=== PATIENT | female | born 1955 | race Caucasian/White ===

== ENCOUNTER 2019-08-09 15:57 | Inpatient (IN) | payer MEDICARE, BC ==
[2019-08-09 16:51] LABS: Basophils % (A) 0 %; Eosinophils # (A) 0.1 k/uL (0-0.7); Eosinophils % (A) 1 %; HCT 27.4 % (34.0-46.0); HGB 9.5 gm/dL (11.4-16.0); Lymphocytes # (A) 0.2 k/uL (1.0-4.8); Lymphocytes % (A) 3 %; MCH 28.8 pg (25.0-35.0); MCHC 34.6 g/dL (31.0-37.0); MCV 83.2 fL (80.0-100.0); Mean Platelet Volume 9.4; Monocytes # (A) 0.7 k/uL (0-1.0); Monocytes % (A) 8 %; Neutrophils # (A) 7.5 k/uL (1.3-7.7); Neutrophils % (A) 88 %; Platelet Count 198 k/uL (150-450); RBC 3.29 m/uL (3.80-5.40); RDW 12.7 % (11.5-15.5); WBC 8.6 k/uL (3.8-10.6)
[2019-08-09 16:54] LABS: Albumin 3.5 g/dL (3.5-5.0); Calcium 9.4 mg/dL (8.4-10.2); Potassium 4.7 mmol/L (3.5-5.1); Total Bilirubin 0.3 mg/dL (0.2-1.3); Total Protein 6.1 g/dL (6.3-8.2)
--- NOTE | 2019-08-09 16:54 | ED ---
Weakness HPI - General Chief complaint: Weakness Stated complaint: Multiple falls Time Seen by Provider: 08/09/19 16:00 Source: patient Mode of arrival: wheelchair Limitations: no limitations - History of Present Illness Initial comments: The patient is a 64-year-old female past medical history of renal transplant in 2018 who presents to the emergency department with reported generalized weakness. The patient does come over from the wound care center. She was seen there for an abdominal wall wound which has been present since they removed her stitches from her nephrectomy. She states that it was cleaned up after 7 months. Then last January it began oozing purulent drainage again. She has been going to the wound care frequently without improvement. States that as of recently she began having pain in the area which is new for her. Admits to chills with intermittent fevers. Also admits to the sensation of feeling as if she is off balance. She has had multiple falls. Today she sustained a fall where she fell onto her knees. Denies any current pain in her extremities. She was able to get up and ambulate. Denies any head trauma or loss of consciousness. She denies any chest pain. Denies cough or hemoptysis. Follows with Dr. Mcdonald. She is on Everolimus and Tacro. Denies any missed doses. There are no other alleviating, precipitating or modifying factors - Related Data Home Medications Medication Instructions Recorded Confirmed Febuxostat [Uloric] 40 mg PO DAILY 04/01/14 08/09/19 HYDROcodone/APAP 10-325MG [[place] 1 tab PO Q6H PRN 04/01/14 08/09/19 10-325] Montelukast [Singulair] 10 mg PO HS 04/01/14 08/09/19 Rituxan(Unknown Dose) 1 dose IV Q180D 04/01/14 08/09/19 buPROPion [Wellbutrin] 100 mg PO DAILY 04/01/14 08/09/19 predniSONE 5 mg PO DAILY 04/01/14 08/09/19 traZODone HCL [Desyrel] 100 mg PO HS 04/01/14 08/09/19 Aspirin 81 mg PO DAILY 06/14/18 08/09/19 Cholecalciferol [Vitamin D3 (25 1,000 unit PO DAILY 06/14/18 08/09/19 Mcg = 1000 Iu)] Insulin Glargine [Lantus] 20 units SQ AC-BRKFST 06/14/18 08/09/19 Lisinopril [Zestril] 10 mg PO DAILY 09/26/18 08/09/19 Albuterol Sulfate [Ventolin HFA] 1 puff INHALATION RT-Q4H PRN 08/09/19 08/09/19 Atorvastatin Calcium [Lipitor] 10 mg PO DAILY 08/09/19 08/09/19 Cinacalcet HCl [Sensipar] 30 mg PO FR 08/09/19 08/09/19 INSULIN ASPART (NovoLOG) [NovoLOG See Protocol SQ AC-TID PRN 08/09/19 08/09/19 (formulary)] NIFEdipine [Procardia XL] 90 mg PO DIRECTED 08/09/19 08/09/19 sitaGLIPtin PHOSPHATE [Januvia] 100 mg PO DAILY 08/09/19 08/09/19 Everolimus [Zortress] 3 mg PO HS 08/10/19 08/10/19 Everolimus [Zortress] 4 mg PO QAM 08/10/19 08/10/19 Previous Rx's Medication Instructions Recorded Omeprazole [PriLOSEC] 20 mg PO AC-BID #28 cap 04/03/14 Amoxic-Pot Clav 875-125Mg 1 tab PO Q12HR 3 Days #14 tab 08/13/19 [Augmentin 875-125] Tacrolimus [Prograf] 7 mg PO BID #60 cap 08/13/19 Allergies Allergy/AdvReac Type Severity Reaction Status Date / Time povidone-iodine Allergy Unknown Rash/Hives Verified 08/09/19 18:51 [From Betadine] soap [From Betadine] Allergy Unknown Rash/Hives Verified 08/09/19 18:51 adhesive AdvReac Unknown Rash/Hives Verified 08/09/19 18:51 aspirin AdvReac Unknown UNABLE TO Verified 08/09/19 18:51 TAKE DUE TO KIDNEY FAILURE Beta-Blockers AdvReac Unknown UNABLE TO Verified 08/09/19 18:51 (Beta-Adrenergic Bloc TAKE DUE TO ASTHMA NSAIDS (Non-Steroidal AdvReac Unknown UNABLE TO Verified 08/09/19 18:51 Anti-Inflamma TAKE DUE TO KIDNEY FAILURE Review of Systems ROS Statement: Those systems with pertinent positive or pertinent negative responses have been documented in the HPI. ROS Other: All systems not noted in ROS Statement are negative. Past Medical History Past Medical History: Asthma, Cancer, GERD/Reflux, Hypertension, Musculoskeletal Disorder, Renal Disease Additional Past Medical History / Comment(s): GOUT, HEART MURMUR, BACK PAIN- SPINAL STENOSIS WITH SPURS AND PROLAPSED DISCS-SHE HAS 2 SPINAL CORD STIMULATORS ANNEMARIE LOWER BACK. STAGE 5 KIDNEY FAILURE. ANAL CANCER. KIDNEY TRANSPLANT. History of Any Multi-Drug Resistant Organisms: None Reported Past Surgical History: Adenoidectomy, Appendectomy, Cholecystectomy, Joint R eplacement, Tonsillectomy, Uterine Ablation Additional Past Surgical History / Comment(s): RT CATARACT, EAR SURGERY, SPINAL CORD STIMULATORS. REPLACEMENTS OF LT SHOULDER, LT HIP & ANNEMARIE KNEES. KIDNEY TRANSPLANT. Past Anesthesia/Blood Transfusion Reactions: No Reported Reaction Additional Past Anesthesia/Blood Transfusion Reaction / Comment(s): HX OF SEVERAL BLOOD TRANSFUSIONS, NO REACTIONS. Past Psychological History: No Psychological Hx Reported Smoking Status: Former smoker Past Alcohol Use History: None Reported Past Drug Use History: None Reported General Exam Limitations: no limitations General appearance: alert, in no apparent distress Head exam: Present: atraumatic, normocephalic, normal inspection Eye exam: Present: normal appearance, PERRL, EOMI. Absent: scleral icterus, conjunctival injection, periorbital swelling ENT exam: Present: normal exam, mucous membranes moist Neck exam: Present: normal inspection. Absent: tenderness, meningismus, lymphadenopathy Respiratory exam: Present: normal lung sounds bilaterally. Absent: respiratory distress, wheezes, rales, rhonchi, stridor Cardiovascular Exam: Present: regular rate, normal rhythm, normal heart sounds. Absent: systolic murmur, diastolic murmur, rubs, gallop, clicks GI/Abdominal exam: Present: soft, normal bowel sounds, other (open wound right abd wall. No active drainage or surrouding cellulitis). Absent: distended, tenderness, guarding, rebound, rigid Extremities exam: Present: normal inspection, full ROM, normal capillary refill. Absent: tenderness, pedal edema, joint swelling, calf tenderness Back exam: Present: normal inspection Neurological exam: Present: alert, oriented X3, CN II-XII intact Psychiatric exam: Present: normal affect, normal mood Skin exam: Present: warm, dry, intact, normal color. Absent: rash Course Vital Signs 08/09/19 08/09/19 08/09/19 15:58 17:32 18:05 Temperature 98 F Pulse Rate 85 67 71 Respiratory 18 16 16 Rate Blood Pressure 112/65 140/60 150/60 O2 Sat by Pulse 98 99 97 Oximetry 08/09/19 08/09/19 19:41 21:35 Temperature Pulse Rate 74 72 Respiratory 16 18 Rate Blood Pressure 183/77 187/93 O2 Sat by Pulse 95 96 Oximetry EKG Findings - EKG Comments: EKG Findings:: EKG demonstrates a normal sinus rhythm with a ventricular rate of 79. NV interval 192. QRS 12. QTC of 479. No acute ST segment elevations or depressions concerning for ischemic changes Medical Decision Making - Medical Decision Making Upon arrival the patient is placed into room 8. A thorough history and physical exam was performed. Peripheral IV was established. A 12-lead EKG was performed. Laboratory studies were conducted which demonstrated an anemia with a hemoglobin of 9.5. Creatinine is 2.5 with a GFR of 20. Patient reports that her lab studies 3 weeks ago demonstrated a creatinine of 1.2 with a GFR 49. Troponin elevated at 0.048. Urinalysis negative for infection. I did perform a CT of the patient's brain because of her sensation of ataxia which demonstrates no acute findings. Patient has no truncal ataxia and finger to nose is symmetric bilaterally. I also performed a CT the patient's abdomen and pelvis which demonstrates a wound dehiscence without interval fluid collection. I did draw blood cultures and gave the patient also Unasyn for her abdominal wall wound which she states is now painful and normally is not. I also started the patient on some fluids with a 500 bolus followed by 75 mL/h. I recommended hospital admission for which patient did agree. She is admitted to [facility]. Patient will be transferred to the floor in stable condition - Lab Data Result diagrams: 08/12/19 06:08 08/12/19 06:08 Lab Results 08/09/19 08/09/19 08/09/19 Range/Units 14:12 16:28 16:28 WBC 8.6 (3.8-10.6) k/uL RBC 3.29 L (3.80-5.40) m/uL Hgb 9.5 L (11.4-16.0) gm/dL Hct 27.4 L (34.0-46.0) % MCV 83.2 (80.0-100.0) fL MCH 28.8 (25.0-35.0) pg MCHC 34.6 (31.0-37.0) g/dL RDW 12.7 (11.5-15.5) % Plt Count 198 (150-450) k/uL Neutrophils % 88 % Lymphocytes % 3 % Monocytes % 8 % Eosinophils % 1 % Basophils % 0 % Neutrophils # 7.5 (1.3-7.7) k/uL Lymphocytes # 0.2 L (1.0-4.8) k/uL Monocytes # 0.7 (0-1.0) k/uL Eosinophils # 0.1 (0-0.7) k/uL Basophils # 0.0 (0-0.2) k/uL PT 9.9 (9.0-12.0) sec INR 1.0 (<1.2) APTT 24.4 (22.0-30.0) sec Sodium (137-145) mmol/L Potassium (3.5-5.1) mmol/L Chloride (98-107) mmol/L Carbon Dioxide (22-30) mmol/L Anion Gap mmol/L BUN (7-17) mg/dL Creatinine (0.52-1.04) mg/dL Est GFR (CKD-EPI)AfAm (>60 ml/min/1.73 sqM) Est GFR (CKD-EPI)NonAf (>60 ml/min/1.73 sqM) Glucose (74-99) mg/dL Plasma Lactic Acid Antoni (0.7-2.0) mmol/L Calcium (8.4-10.2) mg/dL Total Bilirubin (0.2-1.3) mg/dL AST (14-36) U/L ALT (4-34) U/L Alkaline Phosphatase (38-126) U/L Creatine Kinase (30-135) U/L Troponin I (0.000-0.034) ng/mL Total Protein (6.3-8.2) g/dL Albumin (3.5-5.0) g/dL TSH (0.465-4.680) mIU/L Urine Color Urine Appearance (Clear) Urine pH (5.0-8.0) Ur Specific [place] (1.001-1.035) Urine Protein (Negative) Urine Glucose (UA) (Negative) Urine Ketones (Negative) Urine Blood (Negative) Urine Nitrite (Negative) Urine Bilirubin (Negative) Urine Urobilinogen (<2.0) mg/dL Ur Leukocyte Esterase (Negative) Tacrolimus (5.0-20.0) ng/mL Coronavirus (PCR) Not Detected (Not Detected) 08/09/19 08/09/19 08/09/19 Range/Units 16:28 16:28 16:28 WBC (3.8-10.6) k/uL RBC (3.80-5.40) m/uL Hgb (11.4-16.0) gm/dL Hct (34.0-46.0) % MCV (80.0-100.0) fL MCH (25.0-35.0) pg MCHC (31.0-37.0) g/dL RDW (11.5-15.5) % Plt Count (150-450) k/uL Neutrophils % % Lymphocytes % % Monocytes % % Eosinophils % % Basophils % % Neutrophils # (1.3-7.7) k/uL Lymphocytes # (1.0-4.8) k/uL Monocytes # (0-1.0) k/uL Eosinophils # (0-0.7) k/uL Basophils # (0-0.2) k/uL PT (9.0-12.0) sec INR (<1.2) APTT (22.0-30.0) sec Sodium 135 L (137-145) mmol/L Potassium 4.7 (3.5-5.1) mmol/L Chloride 108 H (98-107) mmol/L Carbon Dioxide 17 L (22-30) mmol/L Anion Gap 10 mmol/L BUN 52 H (7-17) mg/dL Creatinine 2.53 H (0.52-1.04) mg/dL Est GFR (CKD-EPI)AfAm 23 (>60 ml/min/1.73 sqM) Est GFR (CKD-EPI)NonAf 20 (>60 ml/min/1.73 sqM) Glucose 214 H (74-99) mg/dL Plasma Lactic Acid Antoni 1.0 (0.7-2.0) mmol/L Calcium 9.4 (8.4-10.2) mg/dL Total Bilirubin 0.3 (0.2-1.3) mg/dL AST 18 (14-36) U/L ALT 9 (4-34) U/L Alkaline Phosphatase 111 (38-126) U/L Creatine Kinase 67 (30-135) U/L Troponin I 0.048 H* (0.000-0.034) ng/mL Total Protein 6.1 L (6.3-8.2) g/dL Albumin 3.5 (3.5-5.0) g/dL TSH 0.542 (0.465-4.680) mIU/L Urine Color Urine Appearance (Clear) Urine pH (5.0-8.0) Ur Specific [place] (1.001-1.035) Urine Protein (Negative) Urine Glucose (UA) (Negative) Urine Ketones (Negative) Urine Blood (Negative) Urine Nitrite (Negative) Urine Bilirubin (Negative) Urine Urobilinogen (<2.0) mg/dL Ur Leukocyte Esterase (Negative) Tacrolimus (5.0-20.0) ng/mL Coronavirus (PCR) (Not Detected) 08/09/19 08/09/19 Range/Units 16:28 18:12 WBC (3.8-10.6) k/uL RBC (3.80-5.40) m/uL Hgb (11.4-16.0) gm/dL Hct (34.0-46.0) % MCV (80.0-100.0) fL MCH (25.0-35.0) pg MCHC (31.0-37.0) g/dL RDW (11.5-15.5) % Plt Count (150-450) k/uL Neutrophils % % Lymphocytes % % Monocytes % % Eosinophils % % Basophils % % Neutrophils # (1.3-7.7) k/uL Lymphocytes # (1.0-4.8) k/uL Monocytes # (0-1.0) k/uL Eosinophils # (0-0.7) k/uL Basophils # (0-0.2) k/uL PT (9.0-12.0) sec INR (<1.2) APTT (22.0-30.0) sec Sodium (137-145) mmol/L Potassium (3.5-5.1) mmol/L Chloride (98-107) mmol/L Carbon Dioxide (22-30) mmol/L Anion Gap mmol/L BUN (7-17) mg/dL Creatinine (0.52-1.04) mg/dL Est GFR (CKD-EPI)AfAm (>60 ml/min/1.73 sqM) Est GFR (CKD-EPI)NonAf (>60 ml/min/1.73 sqM) Glucose (74-99) mg/dL Plasma Lactic Acid Antoni (0.7-2.0) mmol/L Calcium (8.4-10.2) mg/dL Total Bilirubin (0.2-1.3) mg/dL AST (14-36) U/L ALT (4-34) U/L Alkaline Phosphatase (38-126) U/L Creatine Kinase (30-135) U/L Troponin I (0.000-0.034) ng/mL Total Protein (6.3-8.2) g/dL Albumin (3.5-5.0) g/dL TSH (0.465-4.680) mIU/L Urine Color Yellow Urine Appearance Clear (Clear) Urine pH 5.0 (5.0-8.0) Ur Specific [place] 1.015 (1.001-1.035) Urine Protein Trace H (Negative) Urine Glucose (UA) Negative (Negative) Urine Ketones Negative (Negative) Urine Blood Negative (Negative) Urine Nitrite Negative (Negative) Urine Bilirubin Negative (Negative) Urine Urobilinogen <2.0 (<2.0) mg/dL Ur Leukocyte Esterase Negative (Negative) Tacrolimus 12.9 (5.0-20.0) ng/mL Coronavirus (PCR) (Not Detected) Disposition Clinical Impression: KERA (acute kidney injury), Dehydration, Fall, Renal transplant recipient, Open abdominal wall wound Disposition: ADMITTED IP TO THIS [facility] Condition: Stable Is patient prescribed a controlled substance at d/c from ED?: No Decision to Admit Reason: Admit from EC Decision Date: 08/09/19 Decision Time: 18:43
[2019-08-09 16:56] LABS: Partial Thromboplastin Time 24.4 sec (22.0-30.0); Prothrombin Time 9.9 sec (9.0-12.0)
--- NOTE | 2019-08-09 17:24 | CT ---
EXAMINATION TYPE: CT brain wo con DATE OF EXAM: 08/09/2019 COMPARISON: None HISTORY: WEAKNESS CT DLP: 1146.4 mGycm Automated exposure control for dose reduction was used. There is mild cerebral atrophy. There is no mass effect nor midline shift. There is no sign of intrac ranial hemorrhage. The calvarium is intact. IMPRESSION: Negative unenhanced head CT scan. Mild atrophy.
--- NOTE | 2019-08-09 17:31 | CT ---
EXAMINATION TYPE: CT abdomen pelvis wo con DATE OF EXAM: 08/09/2019 COMPARISON: None HISTORY: ABDOMINAL WOUND CT DLP: 1062.4 mGycm Automated exposure control for dose reduction was used. Images were obtained from the diaphragm to the floor the pelvis with no contrast. The lung bases are clear of infiltrate. There is no pleural effusion. Heart size is normal. There is no pericardial effusion. Liver shows no focal defect. Spleen is intact. There is no evidence of pancr eatic mass. There are clips from cholecystectomy. There is no adrenal mass. There is symmetric advanced renal atrophy. There is no hydronephrosis. Ther e is no evidence of a renal mass. There is 1 cm cortical cyst posterior left kidney. There is no retr operitoneal adenopathy. There is pelvic transplant kidney on the right side which has normal size and contour. There is no hydronephrosis. There is left hip prosthesis. There is no free fluid in the pel vis. There is no evidence of pelvic mass. There is no mesenteric edema. There is no ascites or free air. There is no sign of a bowel obstructio n. There is linear defect in the skin over the right anterior lower abdomen consistent with dehiscence. There is mild lumbar kyphotic curvature with anterior wedging of L3 and L4 vertebra up to 20%. There is multilevel degenerative disc space narrowing with spurring and osteosclerosis. I see no acute frac ture. There are implants noted over the posterior lower lumbar spine bilaterally. I see no focal bone destruction. There is mild lumbar levoscoliosis. IMPRESSION: Atherosclerotic vascular disease. Transplant kidney shows no evidence of obstruction. Linear cutaneous defect in the right anterior abdomen consistent with wound dehiscence. No drainable fluid collection. No sign of an abscess. Spondylotic changes in the lumbar spine with vacuum disc and osteosclerosis. Old mild compression fractures.
[2019-08-09] MEDS ORDERED: SODIUM CHLORIDE 0.9% 500 ML 500 ML IV ONE (17:49)
[2019-08-09 18:24] LABS: Appearance,Urine Clear (Clear); Bilirubin,Urine Negative (Negative); Blood,Urine Negative (Negative); Color,Urine Yellow; Glucose,Urine (UA) Negative (Negative); Ketones,Urine Negative (Negative); Leukocyte Esterase,Urine Negative (Negative); Nitrite,Urine Negative (Negative); Protein,Urine Trace (Negative); Specific Gravity,Urine 1.015 (1.001-1.035); Urobilinogen,Urine <2.0 mg/dL (<2.0)
[2019-08-09] MEDS ORDERED: NALOXONE 0.4 MG/ML 1 ML VIAL IV PRN (18:43)
[2019-08-09] MEDS ORDERED: AMPICILLIN-SULBACTAM 3 GM in SODIUM CHLORIDE 0.9% 100 ML IVPB STA (18:56)
[2019-08-09] MEDS ORDERED: HYDROcodone/APAP 10-325MG 1 EACH TAB PO PRN (20:06)
[2019-08-09] MEDS ORDERED: ALBUTEROL NEBULIZED 2.5 MG/3 ML INHALATION PRN (20:06)
[2019-08-09] MEDS: SODIUM CHLORIDE 0.9% 1,000 ML IV SCH (21:20)
[2019-08-09] MEDS: MONTELUKAST 10 MG TAB PO SCH (23:57)
[2019-08-09] MEDS: TACROLIMUS 1 MG CAP PO SCH (23:57)
[2019-08-09] MEDS: traZODone HCL 100 MG TAB PO SCH (23:57)
[2019-08-10 05:08] LABS: Basophils % (A) 0 %; Eosinophils # (A) 0.1 k/uL (0-0.7); Eosinophils % (A) 1 %; HGB 8.6 gm/dL (11.4-16.0); Lymphocytes # (A) 0.5 k/uL (1.0-4.8); Lymphocytes % (A) 9 %; MCH 28.8 pg (25.0-35.0); MCHC 34.3 g/dL (31.0-37.0); Mean Platelet Volume 8.9; Monocytes # (A) 0.5 k/uL (0-1.0); Monocytes % (A) 9 %; Neutrophils # (A) 4.3 k/uL (1.3-7.7); Neutrophils % (A) 80 %; Platelet Count 175 k/uL (150-450); RBC 2.98 m/uL (3.80-5.40); RDW 12.4 % (11.5-15.5); WBC 5.4 k/uL (3.8-10.6)
[2019-08-10 05:18] LABS: Calcium 9.2 mg/dL (8.4-10.2); Potassium 4.8 mmol/L (3.5-5.1)
[2019-08-10 06:27] LABS: Glucose,Whole Blood 128 mg/dL (75-99)
[2019-08-10] MEDS: PANTOPRAZOLE 40 MG TABLET PO SCH (06:51)
[2019-08-10] MEDS: INSULIN DETEMIR (LEVEMIR) 100 UNIT/ML SYR SQ SCH (06:51)
--- NOTE | 2019-08-10 08:04 | P.HPIM ---
History of Present Illness Patient is a pleasant 64-year-old female came in with complaints of generalized tiredness and weakness found to be in acute renal failure patient had a renal transplant in 2018 I do not have her baseline creatinine patient used to be a dialysis patient only last creatinine is available was when she was on dialysis and it was 5. Patient denied any fever chills patient has nonhealing wound from her renal transplant in the right inguinal and right lower quadrant of the abdomen. Patient may need to bride meant of that wound and the wound cultures will be up and patient was given a dose of Unasyn patient will be continued on Unasyn and infectious disease will be consulted patient is receiving IV fluids. Patient did get wound cultures from an outside facility which we'll try and get the medical records from. Patient is immune suppressive therapy for for renal transplant patient is on antidepressant medications with low normal blood pressure which is being held at this time patient is receiving IV fluids with improvement of serum creatinine from 2.5-2. Review of Systems REVIEW OF SYSTEMS: CONSTITUTIONAL: As mentioned in HPI HEENT: No recent visual problems or hearing problems. Denied any sore throat. CARDIOVASCULAR: No chest pain, orthopnea, PND, no palpitations, no syncope. PULMONARY: No shortness of breath, no cough, no hemoptysis. GASTROINTESTINAL: No diarrhea, no nausea, no vomiting, no abdominal pain. NEUROLOGICAL: No headaches, no weakness, no numbness. HEMATOLOGICAL: Denies any bleeding or petechiae. GENITOURINARY: Denies any burning micturition, frequency, or urgency. MUSCULOSKELETAL/RHEUMATOLOGICAL: Denies any joint pain, swelling, or any muscle pain. ENDOCRINE: Denies any polyuria or polydipsia. The rest of the 14-point review of systems is negative. Past Medical History Past Medical History: Asthma, Cancer, GERD/Reflux, Hypertension, Musculoskeletal Disorder, Renal Disease Additional Past Medical History / Comment(s): GOUT, HEART MURMUR, BACK PAIN- SPINAL STENOSIS WITH SPURS AND PROLAPSED DISCS-SHE HAS 2 SPINAL CORD STIMULATORS ANNEMARIE LOWER BACK. STAGE 5 KIDNEY FAILURE. ANAL CANCER. KIDNEY TRANSPLANT. History of Any Multi-Drug Resistant Organisms: None Reported Past Surgical History: Adenoidectomy, Appendectomy, Cholecystectomy, Joint Replacement, Tonsillectomy, Uterine Ablation Additional Past Surgical History / Comment(s): RT CATARACT, EAR SURGERY, SPINAL CORD STIMULATORS. REPLACEMENTS OF LT SHOULDER, LT HIP & ANNEMARIE KNEES. KIDNEY TRANSPLANT. Past Anesthesia/Blood Transfusion Reactions: No Reported Reaction Additional Past Anesthesia/Blood Transfusion Reaction / Comment(s): HX OF SEVERAL BLOOD TRANSFUSIONS, NO REACTIONS. Past Psychological History: No Psychological Hx Reported Smoking Status: Former smoker Past Alcohol Use History: None Reported Past Drug Use History: None Reported Medications and Allergies Home Medications Medication Instructions Recorded Confirmed Type Febuxostat [Uloric] 40 mg PO DAILY 04/01/14 08/09/19 History HYDROcodone/APAP 10-325MG [[place] 1 tab PO Q6H PRN 04/01/14 08/09/19 History 10] Montelukast [Singulair] 10 mg PO HS 04/01/14 08/09/19 History Rituxan(Unknown Dose) 1 dose IV Q180D 04/01/14 08/09/19 History buPROPion [Wellbutrin] 100 mg PO DAILY 04/01/14 08/09/19 History predniSONE 5 mg PO DAILY 04/01/14 08/09/19 History traZODone HCL [Desyrel] 100 mg PO HS 04/01/14 08/09/19 History Omeprazole [PriLOSEC] 20 mg PO AC-BID #28 cap 04/03/14 08/09/19 Rx Aspirin 81 mg PO DAILY 06/14/18 08/09/19 History Cholecalciferol [Vitamin D3] 1,000 unit PO DAILY 06/14/18 08/09/19 History Insulin Glargine [Lantus] 20 units SQ AC-BRKFST 06/14/18 08/09/19 History Tacrolimus [Prograf] 8 mg PO BID 06/14/18 08/09/19 History Lisinopril [Zestril] 10 mg PO DAILY 09/26/18 08/09/19 History Albuterol Sulfate [Ventolin HFA] 1 puff INHALATION RT-Q4H PRN 08/09/19 08/09/19 History Atorvastatin Calcium [Lipitor] 10 mg PO DAILY 08/09/19 08/09/19 History Cefadroxil [Duricef] 500 mg PO BID 08/09/19 08/09/19 History Cinacalcet HCl [Sensipar] 30 mg PO FR 08/09/19 08/09/19 History INSULIN ASPART (NovoLOG) [NovoLOG See Protocol SQ AC-TID PRN 08/09/19 08/09/19 History (formulary)] NIFEdipine [Procardia XL] 90 mg PO DIRECTED 08/09/19 08/09/19 History Tacrolimus [Envarsus Xr] 3 mg PO HS 08/09/19 08/09/19 History Tacrolimus [Envarsus Xr] 4 mg PO QAM 08/09/19 08/09/19 History sitaGLIPtin PHOSPHATE [Januvia] 100 mg PO DAILY 08/09/19 08/09/19 History Allergies Allergy/AdvReac Type Severity Reaction Status Date / Time povidone-iodine Allergy Unknown Rash/Hives Verified 08/09/19 18:51 [From Betadine] soap [From Betadine] Allergy Unknown Rash/Hives Verified 08/09/19 18:51 adhesive AdvReac Unknown Rash/Hives Verified 08/09/19 18:51 aspirin AdvReac Unknown UNABLE TO Verified 08/09/19 18:51 TAKE DUE TO KIDNEY FAILURE Beta-Blockers AdvReac Unknown UNABLE TO Verified 08/09/19 18:51 (Beta-Adrenergic Bloc TAKE DUE TO ASTHMA NSAIDS (Non-Steroidal AdvReac Unknown UNABLE TO Verified 08/09/19 18:51 Anti-Inflamma TAKE DUE TO KIDNEY FAILURE Physical Exam Vitals: Vital Signs Temp Pulse Pulse Resp BP BP Pulse Ox 08/10/19 05:02 98.2 F 65 16 112/63 97 08/10/19 00:00 97.8 F 76 16 183/78 98 08/09/19 22:30 98.1 F 74 16 181/80 98 08/09/19 21:35 72 18 187/93 96 08/09/19 19:41 74 16 183/77 95 08/09/19 18:05 71 16 150/60 97 08/09/19 17:32 67 16 140/60 99 08/09/19 15:58 98 F 85 18 112/65 98 Intake and Output 08/09/19 08/10/19 08/10/19 22:59 06:59 14:59 Intake Total 885 Output Total 1 Balance 884 Intake: Intake, IV Titration 525 Amount Sodium Chloride 0.9% 1, 525 000 ml @ 75 mls/hr IV . [id number] [facility] Rx#:[id number] Oral 360 Output: Urine 1 Other: Voiding Method Diaper Diaper # Voids 1 1 # Bowel Movements 1 Weight 87.09 kg 88.4 kg PHYSICAL EXAMINATION: GENERAL: The patient is alert and oriented x3, not in any acute distress. Well developed, well nourished. HEENT: Pupils are round and equally reacting to light. EOMI. No scleral icterus. No conjunctival pallor. Normocephalic, atraumatic. No pharyngeal erythema. No thyromegaly. CARDIOVASCULAR: S1 and S2 present. No murmurs, rubs, or gallops. PULMONARY: Chest is clear to auscultation, no wheezing or crackles. ABDOMEN: Soft, nontender, nondistended, normoactive bowel sounds. No palpable organomegaly. MUSCULOSKELETAL: No joint swelling or deformity. EXTREMITIES: No cyanosis, clubbing, or pedal edema. NEUROLOGICAL: Gross neurological examination did not reveal any focal deficits. SKIN: Wound in the right lower quadrant or inguinal areas mentioned above Results CBC & Chem 7: 08/10/19 04:52 08/10/19 04:52 Labs: Abnormal Lab Results - Last 24 Hours (Table) 08/09/19 08/09/19 08/09/19 Range/Units 16:28 16:28 16:28 RBC 3.29 L (3.80-5.40) m/uL Hgb 9.5 L (11.4-16.0) gm/dL Hct 27.4 L (34.0-46.0) % Lymphocytes # 0.2 L (1.0-4.8) k/uL Sodium 135 L (137-145) mmol/L Chloride 108 H (98-107) mmol/L Carbon Dioxide 17 L (22-30) mmol/L BUN 52 H (7-17) mg/dL Creatinine 2.53 H (0.52-1.04) mg/dL Glucose 214 H (74-99) mg/dL POC Glucose (mg/dL) (75-99) mg/dL Troponin I 0.048 H* (0.000-0.034) ng/mL Total Protein 6.1 L (6.3-8.2) g/dL Urine Protein (Negative) 08/09/19 08/09/19 08/10/19 Range/Units 18:12 22:25 04:52 RBC 2.98 L (3.80-5.40) m/uL Hgb 8.6 L (11.4-16.0) gm/dL Hct 25.0 L (34.0-46.0) % Lymphocytes # 0.5 L (1.0-4.8) k/uL Sodium (137-145) mmol/L Chloride (98-107) mmol/L Carbon Dioxide (22-30) mmol/L BUN (7-17) mg/dL Creatinine (0.52-1.04) mg/dL Glucose (74-99) mg/dL POC Glucose (mg/dL) (75-99) mg/dL Troponin I 0.049 H* (0.000-0.034) ng/mL Total Protein (6.3-8.2) g/dL Urine Protein Trace H (Negative) 08/10/19 08/10/19 08/10/19 Range/Units 04:52 04:52 06:24 RBC (3.80-5.40) m/uL Hgb (11.4-16.0) gm/dL Hct (34.0-46.0) % Lymphocytes # (1.0-4.8) k/uL Sodium 135 L (137-145) mmol/L Chloride 110 H (98-107) mmol/L Carbon Dioxide 19 L (22-30) mmol/L BUN 45 H (7-17) mg/dL Creatinine 2.07 H (0.52-1.04) mg/dL Glucose 126 H (74-99) mg/dL POC Glucose (mg/dL) 128 H (75-99) mg/dL Troponin I 0.057 H* (0.000-0.034) ng/mL Total Protein (6.3-8.2) g/dL Urine Protein (Negative) Thrombosis Risk Factor Assmnt - Choose All That Apply Any of the Below Risk Factors Present?: No Other Risk Factors: Yes Each Risk Factor Represents 2 Points: Age 61-74 years Other congenital or acquired thrombophilia - If yes, enter type in comment: No Thrombosis Risk Factor Assessment Total Risk Factor Score: 2 Thrombosis Risk Factor Assessment Level: Low Risk Assessment and Plan Plan: -Acute renal failure. Patient is status post renal transplant patient resumed on the transplant rejection medications nephrology will be consulted as a competent of prerenal azotemia which improved with IV fluids which will be continued. -Nonhealing wound in the right inguinal area probably nonhealing is secondary to immunosuppressive therapy wound cultures will be obtained patient was started on Unasyn wound cultures will be up in from outside facility where she had cultures done patient was on Ceftin at home. Infectious disease was consulted patient may need debridement -History of end-stage renal disease post renal transplant now I do not know her baseline now creatinine. -Hypertension: Holding off lisinopril and amlodipine because of low normal blood pressures which probably contributed to her renal failure. -Gastroesophageal reflux disease -Mildly elevated troponins secondary to renal disease. No evidence of acute microinfarction. -Non anion gap metabolic acidosis secondary to hyperchloremia IV fluids as per nephrology -DVT prophylaxis early ambulation
[2019-08-10] MEDS ORDERED: CINACALCET 30 MG TAB PO SCH (09:00)
[2019-08-10] MEDS: AMPICILLIN-SULBACTAM 1.5 GM in SODIUM CHLORIDE 0.9% 50 ML IVPB SCH ×3 (09:50→23:41)
[2019-08-10] MEDS: predniSONE 5 MG TAB PO SCH (09:51)
[2019-08-10] MEDS: ALLOPURINOL 100 MG TAB PO SCH (09:51)
[2019-08-10] MEDS: ASPIRIN 81 MG PO SCH (09:51)
[2019-08-10] MEDS: ATORVASTATIN 10 MG TAB PO SCH (09:51)
[2019-08-10] MEDS: buPROPion 100 MG TAB PO SCH (09:51)
[2019-08-10] MEDS: CHOLECALCIFEROL 1,000 UNIT TAB PO SCH (09:51)
[2019-08-10] MEDS: TACROLIMUS 1 MG CAP PO SCH ×2 (09:58→21:44)
[2019-08-10] MEDS: SODIUM CHLORIDE 0.9% 1,000 ML IV SCH ×2 (10:05→21:47)
[2019-08-10] MEDS: ZORTRESS PO SCH ×2 (11:00→21:45)
[2019-08-10 11:27] LABS: Glucose,Whole Blood 184 mg/dL (75-99)
--- NOTE | 2019-08-10 12:56 | CONS ---
CONSULTATION REASON FOR CONSULT: Posttransplant care. HISTORY OF PRESENT ILLNESS: The patient is a 64-year-old female with history of end-stage renal disease, status post donor transplant in 2018 with baseline creatinine about 1-1.2 mg/dL. The patient has had a poorly healing wound which was basically her incision from transplant for the last 2 years. It had healed for about 6-7 months, but then started leaking again in January of 2019. The patient has not been on antibiotics recently. She denies any fever, chills, nausea, vomiting or abdominal pain. The patient was admitted to the hospital with complaints of increased weakness. She did admit to not eating well for the last few days. No urinary symptoms. Blood pressure was actually on the higher side this admission. The patient is currently maintained on IV fluids. Serum creatinine was 2.5 on initial admission. It is down to 2.07. PAST MEDICAL HISTORY: History of asthma, history of end-stage renal disease, status post donor transplant in 2018. baseline creatinine 1.1-1.2 mg/dL. History of hypertension, CKD mineral bone disorder, rheumatoid arthritis. PAST SURGICAL HISTORY: donor transplant at [facility] 2018, anal cancer status post surgery, adenoidectomy, appendectomy, cholecystectomy, uterine ablation, cataract surgery, spinal cord stimulators, left shoulder replacement, bilateral knee arthroplasty, left hip arthroplasty. SOCIAL HISTORY: Patient is a former smoker. No history of drug abuse or alcohol abuse. HOME MEDICATIONS: Include Uloric, [place], Singulair, Wellbutrin, prednisone, Desyrel, Prilosec, aspirin, vitamin D3, insulin, Prograf, Zestril, Lipitor, Sensipar, Duricef, Procardia, tacrolimus, Januvia. ALLERGIES: Include BETADINE, ADHESIVE TAPE, ASPIRIN, BETA BLOCKERS, NSAIDS. REVIEW OF SYSTEMS: As per HPI. Other systems negative. PHYSICAL EXAMINATION: Patient is comfortable, awake, not in any acute distress. Blood pressure is 112/63, heart rate 65 per minute, she is afebrile. Examination of the heart, S1, S2. Examination of the lungs, bilateral breath sounds are heard. Abdomen is soft, nontender. The incision is currently dressed in the right lower quadrant. Transplant kidney is nontender. Examination of the lower extremities shows no evidence of edema. [employer] exam grossly intact. LABS: Show sodium 135, potassium 4.8, chloride 110, CO2 is 19, BUN 45, creatinine 2.07, hemoglobin 8.6 g/dL. ASSESSMENT: 1. Acute kidney injury, mostly prerenal currently improving with IV hydration. Check tacrolimus level as well. 2. Status post donor transplant at [facility] in 2018 with baseline creatinine about 1.0-1.2 mg/dL. 3. Chronic nonhealing incisional wound to be seen by Infectious Disease. 4. Metabolic acidosis, non-gap secondary to renal failure, currently improving. 5. History of rheumatoid arthritis. Patient used to get Rituxan every 6 months. 6. History of anal cancer. 7. Anemia, no active bleeding noted at this time. PLAN: Continue with IV fluids. Check tacrolimus level. Continue with current immunosuppression. We will need to discuss with Transplant if her immunosuppressive medications need to be adjusted given the chronic nonhealing wound. Antibiotics as per ID for now. Continue with the Sensipar. I would avoid any further Rituxan for rheumatoid arthritis. Thank you for this consultation. Will continue to follow the patient with you during her hospitalization. MMODL / IJN: [id number] /
[2019-08-10] MEDS: COLLAGENASE 250 UNIT/GM OINTMENT 30 GM TUBE TOPICAL SCH (13:09)
[2019-08-10 16:39] LABS: Glucose,Whole Blood 138 mg/dL (75-99)
[2019-08-10 20:55] LABS: Glucose,Whole Blood 183 mg/dL (75-99)
[2019-08-10] MEDS: traZODone HCL 100 MG TAB PO SCH (21:44)
[2019-08-10] MEDS: MONTELUKAST 10 MG TAB PO SCH (21:44)
[2019-08-10] MEDS: INSULIN ASPART (NovoLOG) 100 UNIT/ML VIAL SQ SCH (21:45)
[2019-08-11 06:35] LABS: Glucose,Whole Blood 141 mg/dL (75-99)
[2019-08-11] MEDS: PANTOPRAZOLE 40 MG TABLET PO SCH (07:08)
[2019-08-11] MEDS: INSULIN ASPART (NovoLOG) 100 UNIT/ML VIAL SQ SCH ×4 (07:09→20:28)
[2019-08-11] MEDS: INSULIN DETEMIR (LEVEMIR) 100 UNIT/ML SYR SQ SCH (07:09)
[2019-08-11 07:16] LABS: Calcium 8.6 mg/dL (8.4-10.2); Potassium 4.8 mmol/L (3.5-5.1)
[2019-08-11] MEDS: ZORTRESS PO SCH ×2 (09:04→20:29)
[2019-08-11] MEDS: CHOLECALCIFEROL 1,000 UNIT TAB PO SCH (09:05)
[2019-08-11] MEDS: ASPIRIN 81 MG PO SCH (09:05)
[2019-08-11] MEDS: predniSONE 5 MG TAB PO SCH (09:05)
[2019-08-11] MEDS: ALLOPURINOL 100 MG TAB PO SCH (09:05)
[2019-08-11] MEDS: ATORVASTATIN 10 MG TAB PO SCH (09:05)
[2019-08-11] MEDS: TACROLIMUS 1 MG CAP PO SCH ×2 (09:05→20:28)
[2019-08-11] MEDS: COLLAGENASE 250 UNIT/GM OINTMENT 30 GM TUBE TOPICAL SCH (09:06)
--- NOTE | 2019-08-11 09:41 | P.CONS ---
History of Present Illness - Reason for Consult Consult date: 08/10/19 Abdominal wall wound Requesting physician: Lavinia Karimi - Chief Complaint Nonhealing abdominal wall wound and pain x weeks - History of Present Illness Patient is 64-year-old female with a past medical history significant for end-stage renal disease in this patient who is status post cadaveric renal transplant right lower quadrant in 2018 he apparently the patient did have a nonhealing wound to the right lower quadrant area the site of renal transplant f or the patient has been following at the [facility] wound care center, patient mentioned that has been some drainage from the area for the last few days to weeks and patient be complaining of pain to the right lower abdominal area described the pain to be dull aching intensity 5-6 out of 10 and no radiation patient did have some chills but denies high-grade fever patient was evaluated in the wound care center and subsequently has been sent to the ER for admission and antibiotic therapy on arrival to the ER the patient has been afebrile did have a normal white count patient did have CT of abdominal pelvis which it shows abdominal wall wound bases but no drainable abscess patient did h ave local cultures obtained she has been started on Unasyn and infectious disease was consulted for further management of antibiotic therapy Review of Systems Positive point has been mentioned in the HPI rest of the systems are negative Past Medical History Past Medical History: Asthma, Cancer, GERD/Reflux, Hypertension, Musculoskeletal Disorder, Renal Disease Additional Past Medical History / Comment(s): GOUT, HEART MURMUR, BACK PAIN- SPINAL STENOSIS WITH SPURS AND PROLAPSED DISCS-SHE HAS 2 SPINAL CORD STIMULATORS ANNEMARIE LOWER BACK. STAGE 5 KIDNEY FAILURE. ANAL CANCER. KIDNEY TRANSPLANT. History of Any Multi-Drug Resistant Organisms: None Reported Past Surgical History: Adenoidectomy, Appendectomy, Cholecystectomy, Joint Replacement, Tonsillectomy, Uterine Ablation Additional Past Surgical History / Comment(s): RT CATARACT, EAR SURGERY, SPINAL CORD STIMULATORS. REPLACEMENTS OF LT SHOULDER, LT HIP & ANNEMARIE KNEES. KIDNEY TRANSPLANT. Past Anesthesia/Blood Transfusion Reactions: No Reported Reaction Additional Past Anesthesia/Blood Transfusion Reaction / Comm: HX OF SEVERAL BLOOD TRANSFUSIONS, NO REACTIONS. Past Psychological History: No Psychological Hx Reported Smoking Status: Former smoker Past Alcohol Use History: None Reported Past Drug Use History: None Reported Medications and Allergies Home Medications Medication Instructions Recorded Confirmed Type Febuxostat [Uloric] 40 mg PO DAILY 04/01/14 08/09/19 History HYDROcodone/APAP 10-325MG [[place] 1 tab PO Q6H PRN 04/01/14 08/09/19 History 10] Montelukast [Singulair] 10 mg PO HS 04/01/14 08/09/19 History Rituxan(Unknown Dose) 1 dose IV Q180D 04/01/14 08/09/19 History buPROPion [Wellbutrin] 100 mg PO DAILY 04/01/14 08/09/19 History predniSONE 5 mg PO DAILY 04/01/14 08/09/19 History traZODone HCL [Desyrel] 100 mg PO HS 04/01/14 08/09/19 History Omeprazole [PriLOSEC] 20 mg PO AC-BID #28 cap 04/03/14 08/09/19 Rx Aspirin 81 mg PO DAILY 06/14/18 08/09/19 History Cholecalciferol [Vitamin D3] 1,000 unit PO DAILY 06/14/18 08/09/19 History Insulin Glargine [Lantus] 20 units SQ AC-BRKFST 06/14/18 08/09/19 History Tacrolimus [Prograf] 8 mg PO BID 06/14/18 08/09/19 History Lisinopril [Zestril] 10 mg PO DAILY 09/26/18 08/09/19 History Albuterol Sulfate [Ventolin HFA] 1 puff INHALATION RT-Q4H PRN 08/09/19 08/09/19 History Atorvastatin Calcium [Lipitor] 10 mg PO DAILY 08/09/19 08/09/19 History Cefadroxil [Duricef] 500 mg PO BID 08/09/19 08/09/19 History Cinacalcet HCl [Sensipar] 30 mg PO FR 08/09/19 08/09/19 History INSULIN ASPART (NovoLOG) [NovoLOG See Protocol SQ AC-TID PRN 08/09/19 08/09/19 History (formulary)] NIFEdipine [Procardia XL] 90 mg PO DIRECTED 08/09/19 08/09/19 History sitaGLIPtin PHOSPHATE [Januvia] 100 mg PO DAILY 08/09/19 08/09/19 History Everolimus [Zortress] 3 mg PO HS 08/10/19 08/10/19 History Everolimus [Zortress] 4 mg PO QAM 08/10/19 08/10/19 History Allergies Allergy/AdvReac Type Severity Reaction Status Date / Time povidone-iodine Allergy Unknown Rash/Hives Verified 08/09/19 18:51 [From Betadine] soap [From Betadine] Allergy Unknown Rash/Hives Verified 08/09/19 18:51 adhesive AdvReac Unknown Rash/Hives Verified 08/09/19 18:51 aspirin AdvReac Unknown UNABLE TO Verified 08/09/19 18:51 TAKE DUE TO KIDNEY FAILURE Beta-Blockers AdvReac Unknown UNABLE TO Verified 08/09/19 18:51 (Beta-Adrenergic Bloc TAKE DUE TO ASTHMA NSAIDS (Non-Steroidal AdvReac Unknown UNABLE TO Verified 08/09/19 18:51 Anti-Inflamma TAKE DUE TO KIDNEY FAILURE Physical Exam Vitals: Vital Signs Temp Pulse Resp BP Pulse Ox 08/11/19 04:00 98.3 F 66 16 154/66 97 08/11/19 00:00 98.4 F 71 16 124/65 98 08/10/19 20:00 98.3 F 64 16 112/66 97 08/10/19 16:00 98.1 F 64 16 122/64 97 08/10/19 12:00 97.9 F 67 16 115/70 96 Intake and Output 08/10/19 08/11/19 08/11/19 22:59 06:59 14:59 Intake Total 397 Output Total 900 Balance 397 -900 Intake: IV 50 Ampicillin-Sulbactam 1.5 50 gm In Sodium Chloride 0.9 % 50 ml @ 100 mls/hr IVPB Q8HR [facility] Rx#:[id number] Oral 347 Output: Urine 900 Other: Voiding Method Diaper Diaper # Voids 1 Weight 87.997 kg GENERAL DESCRIPTION: Middle-aged female lying in bed, no distress. No tachypnea or accessory muscle of respiration use. HEENT: Shows Pallor , no scleral icterus. Oral mucous membrane is dry. No pharyngeal erythema or thrush NECK: Trachea central, no thyromegaly. LUNGS: Unlabored breathing. Clear to auscultation anteriorly. No wheeze or crackle. HEART: S1, S2, regular rate and rhythm. No loud murmur ABDOMEN: Soft, right lower quadrant abdominal wall wound with minimal slough tissue the base no significant surrounding swelling redness induration or any foul-smelling drainage ,no tenderness , guarding or rigidity, no organomegaly EXTREMITIES: No edema of feet. SKIN: No rash, no masses palpable. NEUROLOGICAL: The patient is awake, alert, oriented x3, mood and affect normal. Results CBC & Chem 7: 08/10/19 04:52 08/11/19 06:23 Labs: Abnormal Lab Results - Last 24 Hours (Table) 08/10/19 08/10/19 08/10/19 Range/Units 11:25 16:37 20:47 Chloride (98-107) mmol/L Carbon Dioxide (22-30) mmol/L BUN (7-17) mg/dL Creatinine (0.52-1.04) mg/dL Glucose (74-99) mg/dL POC Glucose (mg/dL) 184 H 138 H 183 H (75-99) mg/dL 08/11/19 08/11/19 Range/Units 06:23 06:34 Chloride 113 H (98-107) mmol/L Carbon Dioxide 20 L (22-30) mmol/L BUN 28 H (7-17) mg/dL Creatinine 1.47 H (0.52-1.04) mg/dL Glucose 120 H (74-99) mg/dL POC Glucose (mg/dL) 141 H (75-99) mg/dL Microbiology - Last 24 Hours (Table) 08/10/19 16:09 Gram Stain - Preliminary Abdomen Wound Culture - Preliminary 08/09/19 21:00 Blood Culture - Preliminary Blood No Growth after 24 hours 08/10/19 11:40 Anaerobic Culture - Preliminary Abdomen Assessment and Plan Assessment: 1- patient with a chronic nonhealing abdominal wall wound in this patient who did have history of renal transplant to the right lower quadrant area, with a recent pain and drainage with concern for wound infection possibly from gram-p ositive skin billie, gram-negative infection less likely but not entirely excluded in this patient who did have CT of abdominal pelvis in the ER did not show any drainable abscess (1) Abdominal wall cellulitis Current Visit: Yes Status: Acute Code(s): L03.311 - CELLULITIS OF ABDOMINAL WALL SNOMED Code(s): 05490565 (2) Open abdominal wall wound Current Visit: Yes Status: Acute Code(s): S31.109A - UNSP OPN WND ABD WALL, UNSP Q W/O PENET PERIT CAV, INIT SNOMED Code(s): 632091965 Plan: 1- Unasyn 3 g every 8 hours doses been adjusted to kidney function 2-CT will be reviewed with the radiologist 3-local wound care with medahoney followed by moist dressing We will follow on clinical condition and cultures to further adjust medication if needed Thank you for this consultation will follow this patient with you Time with Patient: Greater than 30
[2019-08-11] MEDS: buPROPion 100 MG TAB PO SCH (10:05)
[2019-08-11] MEDS: AMPICILLIN-SULBACTAM 1.5 GM in SODIUM CHLORIDE 0.9% 50 ML IVPB SCH ×3 (10:06→23:11)
[2019-08-11 11:55] LABS: Glucose,Whole Blood 119 mg/dL (75-99)
--- NOTE | 2019-08-11 12:49 | P.CONS ---
History of Present Illness - Reason for Consult Consult date: 08/11/19 - History of Present Illness This is a 64-year-old patient known to the wound care center with a nonhealing ulceration to the right lower quadrant. Patient was seen by surgery previously to the hospitalization who recommended seeing Juanito Brar for panniculectomy to help with the ulceration. Patient has been utilizing Santyl at home and tolerating the dressings without any difficulties. Review of Systems Review Of Systems: Constitutional: No fever, no chills, no night sweats. No weight change. No weakness, fatigue or lethargy. No daytime sleepiness. Integumentary:reports wounds, no lesions. No rash or pruritus. No unusual bruising. No change in hair or nails. Past Medical History Past Medical History: Asthma, Cancer, GERD/Reflux, Hypertension, Musculoskeletal Disorder, Renal Disease Additional Past Medical History / Comment(s): GOUT, HEART MURMUR, BACK PAIN- SPINAL STENOSIS WITH SPURS AND PROLAPSED DISCS-SHE HAS 2 SPINAL CORD STIMULATORS ANNEMARIE LOWER BACK. STAGE 5 KIDNEY FAILURE. ANAL CANCER. KIDNEY TRANSPLANT. History of Any Multi-Drug Resistant Organisms: None Reported Past Surgical History: Adenoidectomy, Appendectomy, Cholecystectomy, Joint Replacement, Tonsillectomy, Uterine Ablation Additional Past Surgical History / Comment(s): RT CATARACT, EAR SURGERY, SPINAL CORD STIMULATORS. REPLACEMENTS OF LT SHOULDER, LT HIP & ANNEMARIE KNEES. KIDNEY TRANSPLANT. Past Anesthesia/Blood Transfusion Reactions: No Reported Reaction Additional Past Anesthesia/Blood Transfusion Reaction / Comm: HX OF SEVERAL BLOOD TRANSFUSIONS, NO REACTIONS. Past Psychological History: No Psychological Hx Reported Smoking Status: Former smoker Past Alcohol Use History: None Reported Past Drug Use History: None Reported Medications and Allergies Home Medications Medication Instructions Recorded Confirmed Type Febuxostat [Uloric] 40 mg PO DAILY 04/01/14 08/09/19 History HYDROcodone/APAP 10-325MG [Sartell 1 tab PO Q6H PRN 04/01/14 08/09/19 History 10] Montelukast [Singulair] 10 mg PO HS 04/01/14 08/09/19 History Rituxan(Unknown Dose) 1 dose IV Q180D 04/01/14 08/09/19 History buPROPion [Wellbutrin] 100 mg PO DAILY 04/01/14 08/09/19 History predniSONE 5 mg PO DAILY 04/01/14 08/09/19 History traZODone HCL [Desyrel] 100 mg PO HS 04/01/14 08/09/19 History Omeprazole [PriLOSEC] 20 mg PO AC-BID #28 cap 04/03/14 08/09/19 Rx Aspirin 81 mg PO DAILY 06/14/18 08/09/19 History Cholecalciferol [Vitamin D3] 1,000 unit PO DAILY 06/14/18 08/09/19 History Insulin Glargine [Lantus] 20 units SQ AC-BRKFST 06/14/18 08/09/19 History Tacrolimus [Prograf] 8 mg PO BID 06/14/18 08/09/19 History Lisinopril [Zestril] 10 mg PO DAILY 09/26/18 08/09/19 History Albuterol Sulfate [Ventolin HFA] 1 puff INHALATION RT-Q4H PRN 08/09/19 08/09/19 History Atorvastatin Calcium [Lipitor] 10 mg PO DAILY 08/09/19 08/09/19 History Cefadroxil [Duricef] 500 mg PO BID 08/09/19 08/09/19 History Cinacalcet HCl [Sensipar] 30 mg PO FR 08/09/19 08/09/19 History INSULIN ASPART (NovoLOG) [NovoLOG See Protocol SQ AC-TID PRN 08/09/19 08/09/19 History (formulary)] NIFEdipine [Procardia XL] 90 mg PO DIRECTED 08/09/19 08/09/19 History sitaGLIPtin PHOSPHATE [Januvia] 100 mg PO DAILY 08/09/19 08/09/19 History Everolimus [Zortress] 3 mg PO HS 08/10/19 08/10/19 History Everolimus [Zortress] 4 mg PO QAM 08/10/19 08/10/19 History Allergies Allergy/AdvReac Type Severity Reaction Status Date / Time povidone-iodine Allergy Unknown Rash/Hives Verified 08/09/19 18:51 [From Betadine] soap [From Betadine] Allergy Unknown Rash/Hives Verified 08/09/19 18:51 adhesive AdvReac Unknown Rash/Hives Verified 08/09/19 18:51 aspirin AdvReac Unknown UNABLE TO Verified 08/09/19 18:51 TAKE DUE TO KIDNEY FAILURE Beta-Blockers AdvReac Unknown UNABLE TO Verified 08/09/19 18:51 (Beta-Adrenergic Bloc TAKE DUE TO ASTHMA NSAIDS (Non-Steroidal AdvReac Unknown UNABLE TO Verified 08/09/19 18:51 Anti-Inflamma TAKE DUE TO KIDNEY FAILURE Physical Exam Vitals: Vital Signs Temp Pulse Resp BP Pulse Ox 08/11/19 08:55 98.0 F 60 18 137/66 97 08/11/19 04:00 98.3 F 66 16 154/66 97 08/11/19 00:00 98.4 F 71 16 124/65 98 08/10/19 20:00 98.3 F 64 16 112/66 97 08/10/19 16:00 98.1 F 64 16 122/64 97 Intake and Output 08/10/19 08/11/19 08/11/19 22:59 06:59 14:59 Intake Total 397 940 Output Total 900 Balance 397 -900 940 Intake: IV 50 100 Ampicillin-Sulbactam 1.5 50 100 gm In Sodium Chloride 0.9 % 50 ml @ 100 mls/hr IVPB Q8HR [facility] Rx#:[id number] Oral 347 840 Output: Urine 900 Other: Voiding Method Diaper Diaper Incontinent # Voids 1 3 # Bowel Movements 0 Weight 87.997 kg Physical exam: General Appearance: Alert, cooperative, no distress, appears stated age. Skin: Nonhealing ulceration to the right lower quadrant with fat layer exposure significant amount of slough and minimal granulation, ulceration measures amirah roximately 1.9 x 0.9 x 0.2 cm there is no tunneling or undermining. Amount medium amount of serous drainage noted. Wound margins are distinct without Reynaldo attached to the wound base. Periwound show scarring. seen within the wound bed. all other Skin color, texture, tugor normal, no rashes or lesions. Neurologic: Alert oriented x3 Results CBC & Chem 7: 08/10/19 04:52 08/11/19 06:23 Labs: Abnormal Lab Results - Last 24 Hours (Table) 08/10/19 08/10/19 08/11/19 Range/Units 16:37 20:47 06:23 Chloride 113 H (98-107) mmol/L Carbon Dioxide 20 L (22-30) mmol/L BUN 28 H (7-17) mg/dL Creatinine 1.47 H (0.52-1.04) mg/dL Glucose 120 H (74-99) mg/dL POC Glucose (mg/dL) 138 H 183 H (75-99) mg/dL 08/11/19 08/11/19 Range/Units 06:34 11:52 Chloride (98-107) mmol/L Carbon Dioxide (22-30) mmol/L BUN (7-17) mg/dL Creatinine (0.52-1.04) mg/dL Glucose (74-99) mg/dL POC Glucose (mg/dL) 141 H 119 H (75-99) mg/dL Microbiology - Last 24 Hours (Table) 08/10/19 16:09 Gram Stain - Preliminary Abdomen Wound Culture - Preliminary 08/09/19 21:00 Blood Culture - Preliminary Blood No Growth after 24 hours 08/10/19 11:40 Anaerobic Culture - Preliminary Abdomen Assessment and Plan (1) Non-pressure chronic ulcer of skin of other sites with fat layer exposed Current Visit: Yes Status: Acute Code(s): L98.492 - NON-PRS CHRONIC ULCER OF SKIN OF SITES W FAT LAYER EXPOSED SNOMED Code(s): 09107198 Plan: Continue with Santyl, saline moistened gauze, dry gauze and secure with paper tape. Patient will continue with outpatient wound appointments. Next appointment August at 2:30. Thank you kindly for the consultation. Any questions please contact the wound care center DNP note has been reviewed and discussed with Dr. Benjamin and the impression and plan of care has been directed as dictated.
--- NOTE | 2019-08-11 15:04 | PN ---
PROGRESS NOTE The patient is seen for followup for acute kidney injury in a transplant kidney. The patient was admitted to the hospital with weakness, fatigue. She is feeling much better and she has good urine output. Renal function has improved as well with creatinine coming down from 2.0 to 1.4 mg/dL. The patient is maintained on IV fluids. PHYSICAL EXAMINATION: On examination today, blood pressure is 137/66, heart rate 60 per minute she is afebrile. Examination of the heart S1, S2. Examination of the lungs, bilateral breath sounds are heard. Abdomen is soft, nontender. The incision is currently dressed. Examination of lower extremities shows no evidence of edema. BRAND AMBASSADOR exam grossly intact. LAB: Show sodium 137, potassium 4.8, chloride 118, CO2 is 20, BUN 20, creatinine 1.47. ASSESSMENT: 1. End-stage renal disease, status post donor transplant at [facility], maintained on Prograf and prednisone. 2. Elevated Prograf level. However, this was drawn at 4:28 pm and I do not believe this is a trough level. A trough level was ordered again on August 10, which is today and it is currently pending. 3. History of rheumatoid arthritis, maintained on Rituxan every 6 months. I have advised the patient that we may need to hold the next dose of Rituxan given her chronic nonhealing wound. 4. Chronic wound at the site of incision being followed at [facility], maintained on antibiotics, being followed by infectious disease this hospitalization and patient has been scheduled to see a surgeon for possible consideration of skin flap and incision of the skin near the wound. PLAN: Continue IV fluids. Await repeat Prograf level. Encourage increased oral intake. MMODL / IJN: [id number] /
[2019-08-11] MEDS: SODIUM CHLORIDE 0.9% 1,000 ML IV SCH ×2 (15:47→23:13)
[2019-08-11 16:38] LABS: Glucose,Whole Blood 189 mg/dL (75-99)
--- NOTE | 2019-08-11 18:34 | P.PN ---
Subjective Progress Note Date: 08/11/19 Principal diagnosis: abdominal wall abscess and acute kidney injury Mrs. Juarez is a 64-year-old female with a past medical history of hypertension and anal cancer status post renal transplantcoming into the emergency department for generalized weakness. Patient follows with wound care center for abdominal wall wound that has been present since having nephrectomy. Patient st ates that recently she had noticed purulent discharge and pain on the right side of her lower abdomen. Patient also also having intermittent fevers and chills. The patient states that she has been feeling weak and also that her balance was off and had multiple falls and so she came into get herself evaluated. She is currently being evaluated for abdominal wall abscess, being treated with Unasyn and also for acute kidney injury. On 08/11/2019 - patient is lying in her bed appears to be comfortable. As per nursing staff report no acute events reported overnight. Patient still continues to have drainage from the right-sided abdominal wall abscess.the wound cultures are currently pending and she is empirically on Unasyn as per ADY Barksdale's recommendations. patient's vitals have been stable. Patient denies having any fevers chills or rigors. She states that her fatigue and weakness have improved. She denies having any chest pain or palpitations. No cough or difficulty in breathing. No abdominal pain nausea vomiting or diarrhea. Patient's labs have been reviewed and a creatinine has been trending down from 2.53 to 1.47 today. Active Medications Hydrocodone Bitart/Acetaminophen ([place] 10) 1 each PO Q6H PRN PRN Reason: Pain Last Admin: 08/09/19 22:58 Dose: 1 each Documented by: Albuterol Sulfate (Ventolin Nebulized) 2.5 mg INHALATION RT-Q4H PRN PRN Reason: Shortness Of Breath Allopurinol (Zyloprim) 200 mg PO DAILY [facility] Last Admin: 08/11/19 09:05 Dose: 200 mg Documented by: Aspirin (Aspirin) 81 mg PO DAILY [facility] Last Admin: 08/11/19 09:05 Dose: 81 mg Documented by: Atorvastatin Calcium (Lipitor) 10 mg PO DAILY [facility] Last Admin: 08/11/19 09:05 Dose: 10 mg Documented by: Bupropion HCl (Wellbutrin) 100 mg PO DAILY [facility] Last Admin: 08/11/19 10:05 Dose: 100 mg Documented by: Cholecalciferol (Vitamin D3 (25 Mcg = 1000 Iu)) 1,000 unit PO DAILY [facility] Last Admin: 08/11/19 09:05 Dose: 1,000 unit Documented by: Cinacalcet (Sensipar) 30 mg PO FR [facility] Last Admin: 08/10/19 09:51 Dose: 30 mg Documented by: Collagenase (Santyl) 1 applic TOPICAL DAILY [facility] Last Admin: 08/11/19 09:06 Dose: 1 applic Documented by: Sodium Chloride (Saline 0.9%) 1,000 mls @ 75 mls/hr IV .[id number] [facility] Last Admin: 08/11/19 15:47 Dose: 75 mls/hr Documented by: Ampicillin Sodium/Sulbactam (Sodium 1.5 gm/ Sodium Chloride) 50 mls @ 100 mls/hr IVPB Q8HR [facility] Last Admin: 08/11/19 15:46 Dose: 100 mls/hr Documented by: Insulin Aspart (Novolog) 0 unit SQ [facility]; Protocol Last Admin: 08/11/19 17:24 Dose: 2 unit Documented by: Insulin Detemir (Levemir) 20 unit SQ [facility] Last Admin: 08/11/19 07:09 Dose: 20 unit Documented by: Montelukast Sodium (Singulair) 10 mg PO [facility] Last Admin: 08/10/19 21:44 Dose: 10 mg Documented by: Naloxone HCl (Narcan) 0.2 mg IV Q2M PRN PRN Reason: Opioid Reversal Zortress (Everolimus () 1 Mg Tablet) 3 mg PO [facility] Last Admin: 08/10/19 21:45 Dose: 3 mg Documented by: Zortress (Everolimus () 1 Mg Tablet) 4 mg PO QAM [facility] Last Admin: 08/11/19 09:04 Dose: 4 mg Documented by: Pantoprazole Sodium (Protonix) 40 mg PO [facility] Last Admin: 08/11/19 07:08 Dose: 40 mg Documented by: Prednisone () 5 mg PO DAILY [facility] Last Admin: 08/11/19 09:05 Dose: 5 mg Documented by: Tacrolimus (Prograf) 8 mg PO BID [facility] Last Admin: 08/11/19 09:05 Dose: 8 mg Documented by: Trazodone HCl (Desyrel) 100 mg PO [facility] Last Admin: 08/10/19 21:44 Dose: 100 mg Documented by: Objective - Vital Signs Vital signs: Vital Signs Temp 98.1 F 08/11/19 11:40 Pulse 62 08/11/19 11:40 Resp 18 08/11/19 11:40 BP 156/72 08/11/19 11:40 Pulse Ox 97 08/11/19 11:40 Intake & Output 08/10/19 08/11/19 08/11/19 18:59 06:59 18:59 Intake Total 3655 108 3496 Output Total 900 Balance 1347 -789 1180 Weight 87.997 kg Intake: IV 750 100 Ampicillin-Sulbactam 1.5 150 100 gm In Sodium Chloride 0.9 % 50 ml @ 100 mls/hr IVPB Q8HR [facility] Rx#:[id number] Sodium Chloride 0.9% 1, 600 000 ml @ 75 mls/hr IV . [id number] [facility] Rx#:[id number] Oral [id number] Output: Urine 900 Other: Voiding Method Diaper Diaper Incontinent # Voids 1 2 # Bowel Movements 0 - Exam PHYSICAL EXAMINATION: GENERAL: The patient is alert and oriented x3, not in any acute distress. Well developed, well nourished. HEENT: Pupils are round and equally reacting to light. EOMI. No scleral icterus. No conjunctival pallor. Normocephalic, atraumatic. No pharyngeal erythema. No thyromegaly. CARDIOVASCULAR: S1 and S2 present. No murmurs, rubs, or gallops. PULMONARY: Chest is clear to auscultation, no wheezing or crackles. ABDOMEN: Soft, nondistended, normoactive bowel sounds. No palpable organomegaly. Mild tenderness in the right lower quadrant. Right lower quadrant abdominal wall wound with minimal slough tissue the base no significant surrounding swelling redness induration . MUSCULOSKELETAL: No joint swelling or deformity. EXTREMITIES: No cyanosis, clubbing, or pedal edema. NEUROLOGICAL: Gross neurological examination did not reveal any focal deficits. SKIN: Wound in the right lower quadrant or inguinal areas mentioned above - Labs CBC & Chem 7: 08/10/19 04:52 08/11/19 06:23 Labs: Abnormal Lab Results - Last 24 Hours (Table) 08/10/19 08/11/19 08/11/19 Range/Units 20:47 06:23 06:34 Chloride 113 H (98-107) mmol/L Carbon Dioxide 20 L (22-30) mmol/L BUN 28 H (7-17) mg/dL Creatinine 1.47 H (0.52-1.04) mg/dL Glucose 120 H (74-99) mg/dL POC Glucose (mg/dL) 183 H 141 H (75-99) mg/dL 08/11/19 08/11/19 Range/Units 11:52 16:37 Chloride (98-107) mmol/L Carbon Dioxide (22-30) mmol/L BUN (7-17) mg/dL Creatinine (0.52-1.04) mg/dL Glucose (74-99) mg/dL POC Glucose (mg/dL) 119 H 189 H (75-99) mg/dL Microbiology - Last 24 Hours (Table) 08/10/19 16:09 Gram Stain - Preliminary Abdomen Wound Culture - Preliminary 08/09/19 21:00 Blood Culture - Preliminary Blood No Growth after 24 hours 08/10/19 11:40 Anaerobic Culture - Preliminary Abdomen Assessment and Plan Assessment: ASSESSMENT Abdominal wall abscess Acute kidney injury Status post renal transplant hypertension GERD Elevated troponins Non-anion gap metabolic acidosis rheumatoid arthritis Elevated Prograf level PLAN: Patient has been started on Unasyn and the wound cultures currently pending. Patient's creatinine has been trending down since starting on IV fluids. Nephrology on board and following the patient. Patient had slightly elevated troponins 2, will ge repeat troponin. continue the patient on IV fluids. Continue with the rest of her medication regimen. Continue with wound care. Further recommendations to follow depending on the progress of the patient.
[2019-08-11 20:15] LABS: Glucose,Whole Blood 169 mg/dL (75-99)
[2019-08-11] MEDS: MONTELUKAST 10 MG TAB PO SCH (20:28)
[2019-08-11] MEDS: traZODone HCL 100 MG TAB PO SCH (20:29)
--- NOTE | 2019-08-11 23:13 | PN ---
PROGRESS NOTE DATE OF SERVICE: 08/11/2019 REASON FOR FOLLOWUP: Abdominal wall wound and cellulitis. INTERVAL HISTORY: Patient is currently afebrile. The patient is feeling better today, breathing comfortably. Denies having any chest pain or shortness of breath or cough. No worsening abdominal pain or diarrhea. PHYSICAL EXAMINATION: Blood pressure is 151/71 with a pulse of 64, temperature 98.4, she is 95% on room air. General description is a middle-aged female up in the bed in no distress. Respiratory system: Unlabored breathing, clear to auscultation anteriorly. Heart S1, S2. Regular rate and rhythm. Abdomen wound with minimal slough tissue. No drainage. LABS: Creatinine is down to 1.47. Blood culture negative. Wound cultures currently pending. DIAGNOSTIC IMPRESSION AND PLAN: Patient with abdominal wall wound nonhealing with concern for possible cellulitis. CT did not show any drainable abscess. Cultures currently pending. Patient on Unasyn. Local wound care with [facility]. Discharge antibiotic based on culture report. Continue supportive care. MMODL / IJN: [id number] /
[2019-08-12 06:53] LABS: Glucose,Whole Blood 126 mg/dL (75-99)
[2019-08-12 07:05] LABS: Basophils % (A) 0 %; Eosinophils # (A) 0.1 k/uL (0-0.7); Eosinophils % (A) 3 %; HCT 25.7 % (34.0-46.0); HGB 8.7 gm/dL (11.4-16.0); Lymphocytes # (A) 0.6 k/uL (1.0-4.8); Lymphocytes % (A) 15 %; MCH 28.4 pg (25.0-35.0); MCHC 33.9 g/dL (31.0-37.0); MCV 83.6 fL (80.0-100.0); Mean Platelet Volume 9.8; Monocytes # (A) 0.4 k/uL (0-1.0); Monocytes % (A) 10 %; Neutrophils # (A) 2.7 k/uL (1.3-7.7); Neutrophils % (A) 69 %; Platelet Count 160 k/uL (150-450); RBC 3.07 m/uL (3.80-5.40); RDW 12.5 % (11.5-15.5); WBC 3.9 k/uL (3.8-10.6)
[2019-08-12 07:21] LABS: Calcium 8.8 mg/dL (8.4-10.2); Potassium 4.6 mmol/L (3.5-5.1)
[2019-08-12] MEDS: INSULIN ASPART (NovoLOG) 100 UNIT/ML VIAL SQ SCH ×4 (07:25→21:16)
[2019-08-12] MEDS: INSULIN DETEMIR (LEVEMIR) 100 UNIT/ML SYR SQ SCH (07:25)
[2019-08-12] MEDS: PANTOPRAZOLE 40 MG TABLET PO SCH (07:26)
[2019-08-12] MEDS: ZORTRESS PO SCH ×2 (09:30→21:18)
[2019-08-12] MEDS: buPROPion 100 MG TAB PO SCH (09:31)
[2019-08-12] MEDS: ALLOPURINOL 100 MG TAB PO SCH (09:31)
[2019-08-12] MEDS: CHOLECALCIFEROL 1,000 UNIT TAB PO SCH (09:31)
[2019-08-12] MEDS: predniSONE 5 MG TAB PO SCH (09:31)
[2019-08-12] MEDS: ATORVASTATIN 10 MG TAB PO SCH (09:31)
[2019-08-12] MEDS: ASPIRIN 81 MG PO SCH (09:31)
[2019-08-12] MEDS: ENOXAPARIN 40 MG/0.4 ML SYRINGE SQ SCH (09:32)
[2019-08-12] MEDS: COLLAGENASE 250 UNIT/GM OINTMENT 30 GM TUBE TOPICAL SCH (09:32)
[2019-08-12] MEDS: AMPICILLIN-SULBACTAM 1.5 GM in SODIUM CHLORIDE 0.9% 50 ML IVPB SCH ×3 (09:39→23:24)
[2019-08-12] MEDS: TACROLIMUS 1 MG CAP PO SCH ×2 (10:08→21:19)
[2019-08-12 12:07] LABS: Glucose,Whole Blood 191 mg/dL (75-99)
--- NOTE | 2019-08-12 12:20 | PN ---
PROGRESS NOTE Patient is seen for followup for acute kidney injury in a transplant kidney. She was admitted with feeling weak and fatigued. The patient was volume depleted. She has a nonhealing chronic wound at the incision site of the transplant. She is currently maintained on antibiotics and overall feeling better. Serum creatinine has improved from 2.5 on admission to 1.25 today. PHYSICAL EXAMINATION: Blood pressure is 130/69, heart rate 66 per minute, she is afebrile. Examination of the heart S1, S2. Examination of the lungs, bilateral breath sounds are heard. Abdomen is soft, nontender. There is tenderness noted near the wound which is currently dressed. Examination of lower extremities show no evidence of edema. ASSISTANT SIGNAL MAINTAINER exam grossly intact. LAB: Show sodium 137, potassium 4.6, chloride 111, CO2 is 21, BUN 20, creatinine 1.25, hemoglobin 8.7 g/dL. ASSESSMENT: 1. Acute kidney injury associated with underlying infection, hypotension, volume depletion, currently improved. 2. End-stage renal disease, status post donor transplant at [facility] in 2018. baseline creatinine 1.0-1.2 mg/dL. 3. Elevated Prograf level. However, this was not a trough level. A trough level was ordered for yesterday and it is currently pending. 4. History of rheumatoid arthritis, maintained on Rituxan. I have advised the patient to hold off on the Rituxan until her wound is better healed. 5. Chronic wound infection at the site of incision after transplant, being followed by ID and also seeing a surgeon for possible consideration of skin flap at the site of the wound. PLAN: Patient is stable for discharge from nephrology standpoint. Continue current dose of Prograf. Will follow up on the level and notify patient if the trough level is elevated. MMODL / IJN: [id number] /
[2019-08-12 16:36] LABS: Glucose,Whole Blood 143 mg/dL (75-99)
[2019-08-12] MEDS: SODIUM CHLORIDE 0.9% 1,000 ML IV SCH (17:55)
--- NOTE | 2019-08-12 20:08 | PN ---
PROGRESS NOTE DATE OF SERVICE: 08/12/2019 REASON FOR FOLLOWUP: Abdominal wall wound and a question secondary cellulitis. INTERVAL HISTORY: Patient is currently afebrile. The patient is feeling better. Patient denies having any chest pain or shortness of breath. No cough. Abdominal pain is currently controlled. No nausea, vomiting or diarrhea. Anxious to go home. PHYSICAL EXAMINATION: Blood pressure 132/59 with a pulse of 76, temperature 98.4. She is 97% on room air. General description: The patient is a middle-aged female lying in bed in no distress. Respiratory system: Unlabored breathing. Clear to auscultation anteriorly. Heart S1, S2. Regular rate and rhythm. Abdomen soft, no tenderness. LABS: Hemoglobin 8.2, white count 3.9, BUN of 20, creatinine 1.25. Wound culture so far negative. DIAGNOSTIC IMPRESSION AND PLAN: Patient has chronic nonhealing wound to the abdominal wall and concern for possible cellulitis. Culture has been negative for any resistant pathogen. The patient on Unasyn to finish therapy with oral Augmentin. Local wound care with Medih[facility]. Continue supportive care. MMODL / IJN: [id number] /
[2019-08-12 20:51] LABS: Glucose,Whole Blood 151 mg/dL (75-99)
[2019-08-12] MEDS: MONTELUKAST 10 MG TAB PO SCH (21:18)
[2019-08-12] MEDS: traZODone HCL 100 MG TAB PO SCH (21:18)
--- NOTE | 2019-08-12 22:48 | P.PN ---
Subjective Progress Note Date: 08/12/19 Principal diagnosis: Abdominal wall abscess and acute kidney injury Mrs. Juarez is a 64-year-old female with a past medical history of hypertension and anal cancer status post renal transplantcoming into the emergency department for generalized weakness. Patient follows with wound care center for abdominal wall wound that has been present since having nephrectomy. Patient st ates that recently she had noticed purulent discharge and pain on the right side of her lower abdomen. Patient also also having intermittent fevers and chills. The patient states that she has been feeling weak and also that her balance was off and had multiple falls and so she came into get herself evaluated. She is currently being evaluated for abdominal wall abscess, being treated with Unasyn and also for acute kidney injury. On 08/11/2019 - patient is lying in her bed appears to be comfortable. As per nursing staff report no acute events reported overnight. Patient still continues to have drainage from the right-sided abdominal wall abscess.the wound cultures are currently pending and she is empirically on Unasyn as per ADY Barksdale's recommendations. patient's vitals have been stable. Patient denies having any fevers chills or rigors. She states that her fatigue and weakness have improved. She denies having any chest pain or palpitations. No cough or difficulty in breathing. No abdominal pain nausea vomiting or diarrhea. Patient's labs have been reviewed and a creatinine has been trending down from 2.53 to 1.47 today. On 08/12/2019 patient is lying in the bed comfortably appears to be no acute distress. No acute events reported overnight. Patient has minimal discharge from the right-sided abdominal wall abscess. She denies having any fevers chills or rigors. No chest pain or palpitations. No cough or difficulty in breathing. No abdominal pain nausea vomiting or diarrhea. No dysuria or hematuria. Patient's vitals reviewed temperature 98.2 heart rate 60s to 70s. Saturating at 98% on room air. On reviewing the labs creatinine has been tr ending down and it is 1.25 today. Active Medications Hydrocodone Bitart/Acetaminophen ([place] 10) 1 each PO Q6H PRN PRN Reason: Pain Last Admin: 08/09/19 22:58 Dose: 1 each Documented by: Albuterol Sulfate (Ventolin Nebulized) 2.5 mg INHALATION RT-Q4H PRN PRN Reason: Shortness Of Breath Allopurinol (Zyloprim) 200 mg PO DAILY [facility] Last Admin: 08/12/19 09:31 Dose: 200 mg Documented by: Aspirin (Aspirin) 81 mg PO DAILY [facility] Last Admin: 08/12/19 09:31 Dose: 81 mg Documented by: Atorvastatin Calcium (Lipitor) 10 mg PO DAILY [facility] Last Admin: 08/12/19 09:31 Dose: 10 mg Documented by: Bupropion HCl (Wellbutrin) 100 mg PO DAILY [facility] Last Admin: 08/12/19 09:31 Dose: 100 mg Documented by: Cholecalciferol (Vitamin D3 (25 Mcg = 1000 Iu)) 1,000 unit PO DAILY [facility] Last Admin: 08/12/19 09:31 Dose: 1,000 unit Documented by: Cinacalcet (Sensipar) 30 mg PO FR [facility] Last Admin: 08/10/19 09:51 Dose: 30 mg Documented by: Collagenase (Santyl) 1 applic TOPICAL DAILY [facility] Last Admin: 08/12/19 09:32 Dose: 1 applic Documented by: Enoxaparin Sodium (Lovenox) 40 mg SQ DAILY [facility] Last Admin: 08/12/19 09:32 Dose: 40 mg Documented by: Sodium Chloride (Saline 0.9%) 1,000 mls @ 75 mls/hr IV .[id number] [facility] Last Admin: 08/12/19 17:55 Dose: Not Given Documented by: Ampicillin Sodium/Sulbactam (Sodium 1.5 gm/ Sodium Chloride) 50 mls @ 100 mls/hr IVPB Q8HR [facility] Last Admin: 08/12/19 16:39 Dose: 100 mls/hr Documented by: Insulin Aspart (Novolog) 0 unit SQ [facility]; Protocol Last Admin: 08/12/19 21:16 Dose: 1 unit Documented by: Insulin Detemir (Levemir) 20 unit SQ AC-BRKFST [facility] Last Admin: 08/12/19 07:25 Dose: 20 unit Documented by: Montelukast Sodium (Singulair) 10 mg PO [facility] Last Admin: 08/12/19 21:18 Dose: 10 mg Documented by: Naloxone HCl (Narcan) 0.2 mg IV Q2M PRN PRN Reason: Opioid Reversal Zortress (Everolimus () 1 Mg Tablet) 3 mg PO [facility] Last Admin: 08/12/19 21:18 Dose: 3 mg Documented by: Zortress (Everolimus () 1 Mg Tablet) 4 mg PO QAM [facility] Last Admin: 08/12/19 09:30 Dose: 4 mg Documented by: Pantoprazole Sodium (Protonix) 40 mg PO AC-BRKFST [facility] Last Admin: 08/12/19 07:26 Dose: 40 mg Documented by: Prednisone () 5 mg PO DAILY [facility] Last Admin: 08/12/19 09:31 Dose: 5 mg Documented by: Tacrolimus (Prograf) 8 mg PO BID [facility] Last Admin: 08/12/19 21:19 Dose: 8 mg Documented by: Trazodone HCl (Desyrel) 100 mg PO [facility] Last Admin: 08/12/19 21:18 Dose: 100 mg Documented by: Objective - Vital Signs Vital signs: Vital Signs Temp 98.4 F 08/12/19 09:25 Pulse 66 08/12/19 09:25 Resp 18 08/12/19 09:25 BP 130/69 08/12/19 09:25 Pulse Ox 97 08/12/19 09:25 Intake & Output 08/11/19 08/12/19 08/12/19 18:59 06:59 18:59 Intake Total 1420 240 Balance 1420 240 Weight 89 kg Intake: IV 100 Ampicillin-Sulbactam 1.5 100 gm In Sodium Chloride 0.9 % 50 ml @ 100 mls/hr IVPB Q8HR [facility] Rx#:[id number] Oral 1320 240 Other: Voiding Method Incontinent Incontinent Incontinent # Voids 0 1 # Bowel Movements 0 - Exam PHYSICAL EXAMINATION: GENERAL: The patient is alert and oriented x3, not in any acute distress. HEENT: Pupils are round and equally reacting to light. EOMI. No conjunctival pallor. CARDIOVASCULAR: S1 and S2 present. No murmurs, rubs, or gallops. PULMONARY: Chest is clear to auscultation, no wheezing or crackles. ABDOMEN: Soft, nondistended, normoactive bowel sounds. No palpable organomegaly. Mild tenderness in the right lower quadrant. Right lower quadrant abdominal wall wound with minimal slough tissue the base no significant surrounding swelling redness induration . MUSCULOSKELETAL: No joint swelling or deformity. EXTREMITIES: No cyanosis, clubbing, or pedal edema. NEUROLOGICAL: Gross neurological examination did not reveal any focal deficits. SKIN: Wound in the right lower quadrant or inguinal areas mentioned above - Labs CBC & Chem 7: 08/12/19 06:08 08/12/19 06:08 Labs: Abnormal Lab Results - Last 24 Hours (Table) 08/11/19 08/11/19 08/11/19 Range/Units 11:52 16:37 20:14 RBC (3.80-5.40) m/uL Hgb (11.4-16.0) gm/dL Hct (34.0-46.0) % Lymphocytes # (1.0-4.8) k/uL Chloride (98-107) mmol/L Carbon Dioxide (22-30) mmol/L BUN (7-17) mg/dL Creatinine (0.52-1.04) mg/dL Glucose (74-99) mg/dL POC Glucose (mg/dL) 119 H 189 H 169 H (75-99) mg/dL 08/12/19 08/12/19 08/12/19 Range/Units 06:08 06:08 06:53 RBC 3.07 L (3.80-5.40) m/uL Hgb 8.7 L (11.4-16.0) gm/dL Hct 25.7 L (34.0-46.0) % Lymphocytes # 0.6 L (1.0-4.8) k/uL Chloride 111 H (98-107) mmol/L Carbon Dioxide 21 L (22-30) mmol/L BUN 20 H (7-17) mg/dL Creatinine 1.25 H (0.52-1.04) mg/dL Glucose 114 H (74-99) mg/dL POC Glucose (mg/dL) 126 H (75-99) mg/dL Microbiology - Last 24 Hours (Table) 08/09/19 21:00 Blood Culture - Preliminary Blood No Growth after 48 hours Assessment and Plan Assessment: ASSESSMENT Abdominal wall abscess Acute kidney injury Status post renal transplant hypertension GERD Elevated troponins Non-anion gap metabolic acidosis rheumatoid arthritis Elevated Prograf level PLAN: Patient has been started on Unasyn and the wound cultures currently Showing gram-positive cocci. Patient's creatinine has been trending down since starting on IV fluids. Nephrology on board and following the patient. continue the patient on IV fluids. Continue with the rest of her medication regimen. Continue with wound care. Anticipate discharge in the next 24 hours.
[2019-08-12 23:49] VITALS: RESP 16
[2019-08-13] MEDS: SODIUM CHLORIDE 0.9% 1,000 ML IV SCH (04:42)
[2019-08-13 07:15] LABS: Glucose,Whole Blood 143 mg/dL (75-99)
[2019-08-13] MEDS: PANTOPRAZOLE 40 MG TABLET PO SCH (07:18)
[2019-08-13] MEDS: INSULIN ASPART (NovoLOG) 100 UNIT/ML VIAL SQ SCH ×2 (07:18→12:37)
[2019-08-13] MEDS: INSULIN DETEMIR (LEVEMIR) 100 UNIT/ML SYR SQ SCH (07:18)
[2019-08-13] MEDS: CHOLECALCIFEROL 1,000 UNIT TAB PO SCH (08:53)
[2019-08-13] MEDS: ALLOPURINOL 100 MG TAB PO SCH (08:53)
[2019-08-13] MEDS: ATORVASTATIN 10 MG TAB PO SCH (08:53)
[2019-08-13] MEDS: ASPIRIN 81 MG PO SCH (08:53)
[2019-08-13] MEDS: ENOXAPARIN 40 MG/0.4 ML SYRINGE SQ SCH (08:54)
[2019-08-13] MEDS: buPROPion 100 MG TAB PO SCH (08:54)
[2019-08-13] MEDS: predniSONE 5 MG TAB PO SCH (08:54)
[2019-08-13] MEDS: ZORTRESS PO SCH (08:55)
[2019-08-13] MEDS: COLLAGENASE 250 UNIT/GM OINTMENT 30 GM TUBE TOPICAL SCH (09:04)
[2019-08-13] MEDS: AMPICILLIN-SULBACTAM 1.5 GM in SODIUM CHLORIDE 0.9% 50 ML IVPB SCH (09:04)
[2019-08-13] MEDS: TACROLIMUS 1 MG CAP PO SCH (11:23)
[2019-08-13 12:20] LABS: Glucose,Whole Blood 255 mg/dL (75-99)
--- NOTE | 2019-08-13 12:23 | P.PN ---
Subjective Patient is seen in follow-up for renal transplant management and acute allograft dysfunction. Renal function is improving. Creatinine 1.25 as of yesterday. She denies vomiting or diarrhea. Oral intake is good. No active complaints at this time. Vital signs are stable. General: The patient appeared well nourished and normally developed. HEENT: Head exam is unremarkable. Neck is without jugular venous distension. LUNGS: Lungs are clear to auscultation and percussion. Breath sounds decreased. HEART: Rate and Rhythm are regular. First and second heart sounds normal. ABDOMEN: Soft, nontender. EXTREMITITES: No edema. Objective - Vital Signs Vital signs: Vital Signs Temp 98.3 F 08/13/19 09:30 Pulse 68 08/13/19 09:30 Resp 16 08/13/19 09:30 BP 98/57 08/13/19 09:30 Pulse Ox 98 08/13/19 09:30 Intake & Output 08/12/19 08/13/19 08/13/19 18:59 06:59 18:59 Intake Total 585 120 120 Balance 585 120 120 Weight 88.5 kg Intake: Oral 585 120 120 Other: Voiding Method Incontinent Incontinent Incontinent # Voids 2 1 - Labs CBC & Chem 7: 08/12/19 06:08 08/12/19 06:08 Labs: Abnormal Lab Results - Last 24 Hours (Table) 08/12/19 08/12/19 08/13/19 Range/Units 16:35 20:49 07:14 POC Glucose (mg/dL) 143 H 151 H 143 H (75-99) mg/dL Microbiology - Last 24 Hours (Table) 08/09/19 21:00 Blood Culture - Preliminary Blood No Growth after 72 hours Assessment and Plan Plan: assessment: 1. Status post donor renal allograft in November 2017 at [facility]. Etiology is lupus nephritis. 2. Acute allograft dysfunction mostly prerenal secondary to hypotension and infection, improved with IV hydration. 3. Chronic kidney disease stage III with baseline creatinine in the range of 1- 1.2. 4. Metabolic acidosis secondary to acute kidney injury. Improving. 5. Insulin-dependent diabetes mellitus. 6. History of rheumatoid arthritis maintained on Rituxan. 7. 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 Infe ctious disease following. Plan: Encouraged oral intake, Hep-Lock IV fluids. Decrease Prograf to 7 mg twice a day. Repeat Prograf level and BMP next week. Anticipate discharge soon. Follow up outpatient in 1-2 weeks.
[2019-08-13 12:28] VITALS: BP 126/58; PULSE 72; TEMP 97.8
--- NOTE | 2019-08-13 16:38 | PN ---
PROGRESS NOTE DATE OF SERVICE: 08/13/2019 REASON FOR FOLLOWUP: Right abdominal wall wound and a question of infection. INTERVAL HISTORY: Patient is currently afebrile. The patient is feeling much better, breathing comfortably. Denies having any chest pain or shortness of breath or cough. No nausea, vomiting. No abdominal pain. Overall feeling better. Wants to go home. PHYSICAL EXAMINATION: Blood pressure 126/58 with a pulse of 72, temperature 97.8. She is 99% on room air. General description is a middle-aged female lying in bed in no distress. RESPIRATORY SYSTEM: Unlabored breathing. Clear to auscultation anteriorly. HEART: S1, S2. Regular rate and rhythm. ABDOMEN: Soft. No tenderness. LABS: No new labs have been obtained today. Wound culture showing anaerobes. DIAGNOSTIC IMPRESSION AND PLAN: Patient with abdominal wound, nonhealing. Culture now showing anaerobes. Patient is on Unasyn. Recommending Augmentin 875 b.i.d. for 10 days. Local wound care with [facility]. Follow up in the wound care center. MMODL / IJN: [id number] /
[2019-08-13] MEDS ORDERED: TACROLIMUS 1 MG CAP PO SCH (21:00)
--- NOTE | 2019-08-14 00:16 | P.DS ---
Providers Date of admission: 08/09/19 18:43 Expected date of discharge: 08/13/19 Attending physician: Ledy Chavez Consults: 08/09/19 18:54 Consult Physician Urgent Consulting Provider: Kelsey Mcdonald Consult Reason/Comments: anamika Do you want consulting provider notified?: Yes 08/10/19 07:26 Consult Physician Routine Consulting Provider: Tarun Barksdale Consult Reason/Comments: Hypoxia and possible aspiration Do you want consulting provider notified?: Yes Primary care physician: [facility] Course: Ms. Juarez is a 64-year-old female with history of ESRD status post cadaveric renal transplant in 2018 coming in with abdominal wall wound drainage. Patient has chronic nonhealing wound in the right lower quadrant at the site of renal transplant and was following with wound care center. As the patient noticed increased drainage and has been having chills with generalized weakness and fatigue, was directed to come to the ER for further evaluation. In the ER patient had CAT scan of the abdomen which was showing abdominal wall wound with no drainable abscess. Wound cultures were showing gram positive cocci. Blood cultures have been negative. Patient was responding to Unasyn. In the interim patient also worsening of her kidney function which could be secondary to her infection. She responded to IV fluids and creatinine back to her baseline at the time of discharge. Patient was cleared by ID and nephrology to be discharged home. Patient's brother was here to pick her up. Patient is being discharged home in a stable condition. Explained to the patient in detail regarding the decrease of Prograf from 8 mg twice daily to 7 mg twice daily. Repeat Prograf level and BMP next week. Vital Signs - 24 hr 08/13/19 08/13/19 08/13/19 04:00 09:30 12:23 Temperature 98.0 F 98.3 F 97.8 F Pulse Rate [ 77 68 72 Left Supine [employer] ] Respiratory 16 16 16 Rate Blood Pressure 128/62 98/57 126/58 [Right Arm Supine] O2 Sat by Pulse 97 98 99 Oximetry PHYSICAL EXAMINATION: GENERAL: The patient is alert and oriented x3, not in any acute distress. HEENT: Pupils are round and equally reacting to light. EOMI. No conjunctival pallor. CARDIOVASCULAR: S1 and S2 present. No murmurs, rubs, or gallops. PULMONARY: Chest is clear to auscultation, no wheezing or crackles. ABDOMEN: Soft, nondistended, normoactive bowel sounds. No palpable organomegaly. Mild tenderness in the right lower quadrant. Right lower quadrant abdominal wall wound with minimal slough tissue the base no significant surrounding swelling redness induration . MUSCULOSKELETAL: No joint swelling or deformity. EXTREMITIES: No cyanosis, clubbing, or pedal edema. NEUROLOGICAL: Gross neurological examination did not reveal any focal deficits. SKIN: Wound in the right lower quadrant or inguinal areas mentioned above DISCHARGE DIAGNOSIS Abdominal wall abscess Acute kidney injury Status post renal transplant hypertension GERD Elevated troponins Non-anion gap metabolic acidosis rheumatoid arthritis Elevated Prograf level PLAN: Explained to the patient in detail regarding the decrease of Prograf from 8 mg twice daily to 7 mg twice daily. Repeat Prograf level and BMP next week. Patient was advised to complete antibiotic course in the form of Augmentin. Follow-up with wound care. She was advised to follow-up with her primary care physician and her office associate in 3 to 4 days. Patient Condition at Discharge: Stable Plan - Discharge Summary Discharge Rx Participant: No New Discharge Prescriptions: New Tacrolimus [Prograf] 7 mg PO BID #60 cap Amoxic-Pot Clav 875-125Mg [Augmentin 875-125] 1 tab PO Q12HR 3 Days #14 tab Continue HYDROcodone/APAP 10-325MG [[place] 10-325] 1 tab PO Q6H PRN PRN Reason: Pain buPROPion [Wellbutrin] 100 mg PO DAILY Montelukast [Singulair] 10 mg PO HS predniSONE 5 mg PO DAILY traZODone HCL [Desyrel] 100 mg PO HS Febuxostat [Uloric] 40 mg PO DAILY Rituxan(Unknown Dose) 1 dose IV Q180D Omeprazole [PriLOSEC] 20 mg PO AC-BID #28 cap Cholecalciferol [Vitamin D3 (25 Mcg = 1000 Iu)] 1,000 unit PO DAILY Insulin Glargine [Lantus] 20 units SQ AC-BRKFST Aspirin 81 mg PO DAILY Lisinopril [Zestril] 10 mg PO DAILY Albuterol Sulfate [Ventolin HFA] 1 puff INHALATION RT-Q4H PRN PRN Reason: Shortness Of Breath Atorvastatin Calcium [Lipitor] 10 mg PO DAILY INSULIN ASPART (NovoLOG) [NovoLOG (formulary)] See Protocol SQ AC-TID PRN PRN Reason: HIGH BLOOD SUGAR NIFEdipine [Procardia XL] 90 mg PO DIRECTED sitaGLIPtin PHOSPHATE [Januvia] 100 mg PO DAILY Cinacalcet HCl [Sensipar] 30 mg PO FR Everolimus [Zortress] 4 mg PO QAM Discontinued Tacrolimus [Prograf] 8 mg PO BID Cefadroxil [Duricef] 500 mg PO BID No Action Everolimus [Zortress] 3 mg PO HS Discharge Medication List Febuxostat [Uloric] 40 mg PO DAILY 04/01/14 [History] HYDROcodone/APAP 10-325MG [[place] 10-325] 1 tab PO Q6H PRN 04/01/14 [History] Montelukast [Singulair] 10 mg PO HS 04/01/14 [History] Rituxan(Unknown Dose) 1 dose IV Q180D 04/01/14 [History] buPROPion [Wellbutrin] 100 mg PO DAILY 04/01/14 [History] predniSONE 5 mg PO DAILY 04/01/14 [History] traZODone HCL [Desyrel] 100 mg PO HS 04/01/14 [History] Omeprazole [PriLOSEC] 20 mg PO AC-BID #28 cap 04/03/14 [Rx] Aspirin 81 mg PO DAILY 06/14/18 [History] Cholecalciferol [Vitamin D3 (25 Mcg = 1000 Iu)] 1,000 unit PO DAILY 06/14/18 [History] Insulin Glargine [Lantus] 20 units SQ AC-BRKFST 06/14/18 [History] Lisinopril [Zestril] 10 mg PO DAILY 09/26/18 [History] Albuterol Sulfate [Ventolin HFA] 1 puff INHALATION RT-Q4H PRN 08/09/19 [History] Atorvastatin Calcium [Lipitor] 10 mg PO DAILY 08/09/19 [History] Cinacalcet HCl [Sensipar] 30 mg PO FR 08/09/19 [History] INSULIN ASPART (NovoLOG) [NovoLOG (formulary)] See Protocol SQ AC-TID PRN 08/09/19 [History] NIFEdipine [Procardia XL] 90 mg PO DIRECTED 08/09/19 [History] sitaGLIPtin PHOSPHATE [Januvia] 100 mg PO DAILY 08/09/19 [History] Everolimus [Zortress] 3 mg PO HS 08/10/19 [History] Everolimus [Zortress] 4 mg PO QAM 08/10/19 [History] Amoxic-Pot Clav 875-125Mg [Augmentin 875-125] 1 tab PO Q12HR 3 Days #14 tab 08/13/19 [Rx] Tacrolimus [Prograf] 7 mg PO BID #60 cap 08/13/19 [Rx] Follow up Appointment(s)/Referral(s): Dionte Vasques MD [Primary Care Provider] - 08/16/19 10:00 am Patient Instructions/Handouts: Acute Kidney Injury (DC) Discharge Disposition: HOME SELF-CARE
== END 2019-08-13 16:38 | disposition home or self-care (01) | DRG 863 ==
LOC: EC 15:57 → 3SCARD 18:43
PROVIDERS: ADMIT Hospitalist; ATTEND Hospitalist
DX: T81.49XA Infection following a procedure, other surgical site, initial encounter (principal); L02.211 Cutaneous abscess of abdominal wall; L03.311 Cellulitis of abdominal wall; I12.0 Hypertensive chronic kidney disease with stage 5 chronic kidney disease or end stage renal disease; N17.9 Acute kidney failure, unspecified; T81.30XA Disruption of wound, unspecified, initial encounter; T86.19 Other complication of kidney transplant; E87.2 Acidosis; J45.909 Unspecified asthma, uncomplicated; K21.9 Gastro-esophageal reflux disease without esophagitis; L98.492 Non-pressure chronic ulcer of skin of other sites with fat layer exposed; M06.9 Rheumatoid arthritis, unspecified; M32.14 Glomerular disease in systemic lupus erythematosus; R09.02 Hypoxemia; R29.6 Repeated falls; Y83.0 Surgical operation with transplant of whole organ as the cause of abnormal reaction of the patient, or of later complication, without mention of misadventure at the time of the procedure; Z91.81 History of falling; Z79.4 Long term (current) use of insulin; Z79.52 Long term (current) use of systemic steroids; N18.3 Chronic kidney disease, stage 3 (moderate); Z79.82 Long term (current) use of aspirin; Z11.59 Encounter for screening for other viral diseases; Z79.899 Other long term (current) drug therapy; E87.8 Other disorders of electrolyte and fluid balance, not elsewhere classified; D64.9 Anemia, unspecified; E11.22 Type 2 diabetes mellitus with diabetic chronic kidney disease; E86.0 Dehydration; Z85.048 Personal history of other malignant neoplasm of rectum, rectosigmoid junction, and anus; Z87.891 Personal history of nicotine dependence; Z96.612 Presence of left artificial shoulder joint; Z96.653 Presence of artificial knee joint, bilateral; Z96.642 Presence of left artificial hip joint; R79.89 Other specified abnormal findings of blood chemistry; Z88.6 Allergy status to analgesic agent; Z88.8 Allergy status to other drugs, medicaments and biological substances
CPT/HCPCS: 36415; 70450; 74176; 80048; 80053; 80197; 81003; 82550; 83605; 84443; 84484; 85025; 85610; 85730; 87040; 87070; 87075; 87205; 93005; 96361; 96365; 99285

== ENCOUNTER 2019-10-25 14:55 | Emergency (ER) | payer MEDICARE, BC ==
--- NOTE | 2019-10-25 15:37 | XR ---
Left shoulder HISTORY: Fracture, pain 3 views of the left shoulder Patient is status post left shoulder arthroplasty. There is remodeling of the left humeral neck. Shou lder prosthesis shows a high riding position consistent with chronic rotator cuff tear. Acromioclavic ular joint arthropathy changes present, there is a distal acromion downturned appearance. Left lung a pex as visualized is normal. There are overlying leads. Suspect some soft tissue calcifications are p resent which are likely vascular. IMPRESSION: Underlying arthropathy changes. No acute fracture or dislocation.
--- NOTE | 2019-10-25 15:45 | ED ---
Extremity Problem HPI - General Chief complaint: Extremity Problem,Nontraumatic Stated complaint: L Shoulder Pain Time Seen by Provider: 10/25/19 15:00 Source: patient Mode of arrival: ambulatory Limitations: no limitations - History of Present Illness Initial comments: Patient is a 64-year-old female past medical history of renal transplant, hypertension who presents to the emergency room with reported left shoulder pain. Patient is status post left shoulder surgery in the 80s. States that this morning she felt a pop in her left shoulder and was concerned that she dislocated it. She was seen at the wound clinic earlier today and afterwards decided to come to the emergency department for an x-ray. She does have some limited range of motion. Reports that she is unable to lift higher than her folder. Denies any numbness or tingling into her hand. No pain in her hand, wrist, elbow. No known trauma. She takes Addison for pain control. No other alleviating, precipitating or modifying factors - Related Data Home Medications Medication Instructions Recorded Confirmed Febuxostat [Uloric] 40 mg PO DAILY 04/01/14 10/25/19 HYDROcodone/APAP 10-325MG [Addison 1 tab PO Q6H PRN 04/01/14 10/25/19 10-325] Montelukast [Singulair] 10 mg PO HS 04/01/14 10/25/19 Rituxan(Unknown Dose) 1 dose IV Q180D 04/01/14 10/25/19 buPROPion [Wellbutrin] 100 mg PO DAILY 04/01/14 10/25/19 predniSONE 5 mg PO DAILY 04/01/14 10/25/19 traZODone HCL [Desyrel] 100 mg PO HS 04/01/14 10/25/19 Aspirin 81 mg PO DAILY 06/14/18 10/25/19 Cholecalciferol [Vitamin D3 (25 1,000 unit PO DAILY 06/14/18 10/25/19 Mcg = 1000 Iu)] Insulin Glargine [Lantus] 20 units SQ AC-BRKFST 06/14/18 10/25/19 lisinopriL [Zestril] 10 mg PO DAILY 09/26/18 10/25/19 Albuterol Sulfate [Ventolin HFA] 1 puff INHALATION RT-Q4H PRN 08/09/19 10/25/19 Atorvastatin Calcium [Lipitor] 10 mg PO DAILY 08/09/19 10/25/19 Cinacalcet HCl [Sensipar] 30 mg PO FR 08/09/19 10/25/19 INSULIN ASPART (NovoLOG) [NovoLOG See Protocol SQ AC-TID PRN 08/09/19 10/25/19 (formulary)] NIFEdipine [Procardia XL] 90 mg PO DIRECTED 08/09/19 10/25/19 sitaGLIPtin PHOSPHATE [Januvia] 100 mg PO DAILY 08/09/19 10/25/19 Everolimus [Zortress] 3 mg PO HS 08/10/19 10/25/19 Everolimus [Zortress] 4 mg PO QAM 08/10/19 10/25/19 Previous Rx's Medication Instructions Recorded Omeprazole [PriLOSEC] 20 mg PO AC-BID #28 cap 04/03/14 Amoxic-Pot Clav 875-125Mg 1 tab PO Q12HR 3 Days #14 tab 08/13/19 [Augmentin 875-125] Tacrolimus [Prograf] 7 mg PO BID #60 cap 08/13/19 Allergies Allergy/AdvReac Type Severity Reaction Status Date / Time povidone-iodine Allergy Unknown Rash/Hives Verified 10/25/19 15:03 [From Betadine] soap [From Betadine] Allergy Unknown Rash/Hives Verified 10/25/19 15:03 adhesive AdvReac Unknown Rash/Hives Verified 10/25/19 15:03 aspirin AdvReac Unknown UNABLE TO Verified 10/25/19 15:03 TAKE DUE TO KIDNEY FAILURE Beta-Blockers AdvReac Unknown UNABLE TO Verified 10/25/19 15:03 (Beta-Adrenergic Bloc TAKE DUE TO ASTHMA NSAIDS (Non-Steroidal AdvReac Unknown UNABLE TO Verified 10/25/19 15:03 Anti-Inflamma TAKE DUE TO KIDNEY FAILURE Review of Systems ROS Statement: Those systems with pertinent positive or pertinent negative responses have been documented in the HPI. ROS Other: All systems not noted in ROS Statement are negative. Past Medical History Past Medical History: Asthma, Cancer, GERD/Reflux, Hypertension, Musculoskeletal Disorder, Renal Disease Additional Past Medical History / Comment(s): GOUT, HEART MURMUR, BACK PAIN- SPINAL STENOSIS WITH SPURS AND PROLAPSED DISCS-SHE HAS 2 SPINAL CORD STIMULATORS ANNEMARIE LOWER BACK. STAGE 5 KIDNEY FAILURE. ANAL CANCER. KIDNEY TRANSPLANT. History of Any Multi-Drug Resistant Organisms: None Reported Past Surgical History: Adenoidectomy, Appendectomy, Cholecystectomy, Joint Replacement, Tonsillectomy, Uterine Ablation Additional Past Surgical History / Comment(s): RT CATARACT, EAR SURGERY, SPINAL CORD STIMULATORS. REPLACEMENTS OF LT SHOULDER, LT HIP & ANNEMARIE KNEES. KIDNEY TRANSPLANT. Past Anesthesia/Blood Transfusion Reactions: No Reported Reaction Additional Past Anesthesia/Blood Transfusion Reaction / Comment(s): HX OF SEVERAL BLOOD TRANSFUSIONS, NO REACTIONS. Past Psychological History: No Psychological Hx Reported Smoking Status: Never smoker Past Alcohol Use History: None Reported Past Drug Use History: None Reported General Exam Limitations: no limitations General appearance: alert, in no apparent distress Neck exam: Present: normal inspection. Absent: tenderness, meningismus, lymphadenopathy Respiratory exam: Present: normal lung sounds bilaterally. Absent: respiratory distress, wheezes, rales, rhonchi, stridor Extremities exam: Present: tenderness (when asked to flex/abduct greater than 90 degrees. Intact flexion/extension at the elbow and wrip. 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 Compartments sotft. Well healed scar over left anterior shoulder. No redness or warmth. No joint effuision. Deformity present - humeral head appears high riding. 2+ DP and PT pulses) Course Vital Signs 10/25/19 10/25/19 14:58 15:50 Temperature 98 F 98.1 F Pulse Rate 68 72 Respiratory 18 20 Rate Blood Pressure 113/69 116/56 O2 Sat by Pulse 100 99 Oximetry Medical Decision Making - Medical Decision Making Upon arrival patient is placed in room 7. A thorough history and physical exam is performed. X-ray is reviewed and demonstrates remodeling of the left humeral neck. Shoulder prosthesis shows a high riding physician consistent with chronic rotator cuff tear. AC joint arthropathy. Distal acromion downturned appearance. Results are discussed the patient. She is instructed to continue taking her Addison for pain control. She will given orthopedic office for follow-up. Return to the emergency room for any new or worsening symptoms. Patient was discharged home in stable condition Disposition Clinical Impression: Left shoulder pain Disposition: HOME SELF-CARE Condition: Stable Instructions (If sedation given, give patient instructions): Shoulder Pain (ED) Additional Instructions: Take your Addison as directed. Return to the emergency room for any new or worsening symptoms. I recommend you follow up with the orthopedic doctor Is patient prescribed a controlled substance at d/c from ED?: No Referrals: Dionte Vasques MD [Primary Care Provider] - 1-2 days Ramakrishna Brower DO [Medical Doctor] - 1-2 days Time of Disposition: 15:45
[2019-10-25 16:29] VITALS: BP 116/56; PULSE 72; RESP 20; TEMP 98.1
== END 2019-10-25 15:50 | disposition home or self-care (01) ==
LOC: EC 14:55
DX: M19.012 Primary osteoarthritis, left shoulder (principal); J45.909 Unspecified asthma, uncomplicated; M10.9 Gout, unspecified; I12.0 Hypertensive chronic kidney disease with stage 5 chronic kidney disease or end stage renal disease; Z79.82 Long term (current) use of aspirin; Z79.51 Long term (current) use of inhaled steroids; Z79.899 Other long term (current) drug therapy; Z88.3 Allergy status to other anti-infective agents; Z88.6 Allergy status to analgesic agent; Z88.8 Allergy status to other drugs, medicaments and biological substances; Z94.0 Kidney transplant status; Z85.048 Personal history of other malignant neoplasm of rectum, rectosigmoid junction, and anus; Z87.39 Personal history of other diseases of the musculoskeletal system and connective tissue; Z96.82 Presence of neurostimulator; Z96.612 Presence of left artificial shoulder joint; Z96.642 Presence of left artificial hip joint; Z96.653 Presence of artificial knee joint, bilateral
CPT/HCPCS: 99283

== ENCOUNTER → 2019-11-15 | Outpatient (CLI) | payer MEDICARE, BC ==
[2019-11-15 13:07] VITALS: BP 130/72; PULSE 68; RESP 20; TEMP 98.2
--- NOTE | 2019-11-15 13:31 | P.GSHP ---
History of Present Illness H&P Date: 11/15/19 Chief Complaint: lesion left breast Vicki is a 64 year old white female seen in consultation for Dr. Benjamin who was diagnosed with pyoderma gangrenosum in 1991, she was treated by [facility] doctors which were visiting at [facility]. She had growth factor from her blood used to treat this and this healed. She had done well until January 2019. At that time it started as a small defect which has since increased in size. She has been seen at wound clinic 29 weeks and this has not healed. She has not had any recent biopsies. She had an attempted mammogram in approximately April 2019 which was not successful. She does not feel any lumps masses or nodules in either breast. She is not complaining of any nipple discharge and the skin changes are as mentioned. His she states that it is uncomfortable. It is continuing to increase in size. It does drain. She has had several rounds of antibiotics which have been unsuccessful in treating this. She had a bilateral mammogram in April at [facility] who requests these be sent to us. Family history: father: diabetes mother: still alive at 88 years old Patient: Squamous cell cancer of the skin right forearm, rectal cancer Hormonal history: Menarche: 12 G0 menopause: 41 BCP: 3 years hormones: none Surgical history: kidney transplant 2 years ago secondary to lupus, rheumatoid arthritis, and diabetes 2 spinal cord stimulator was implanted 2009 gallbladder bilateral knee replacement left shoulder replacement left hip replacement T&A left mastoid bone removed Medical History: Kidney transplant on (tacrolimus and prednisone) Lupus Rheumatoid arthritis Diabetes HTN Social History: smoke: none alcohol: none drugs: none - Constitutional Constitutional: Denies chills, Denies fever - EENT Eyes: denies blurred vision, denies pain Ears: right: decreased hearing Ears, nose, mouth and throat: Denies headache, Denies sore throat - Breasts Breasts: bilateral: as per HPI - Cardiovascular Cardiovascular: Denies chest pain, Denies shortness of breath - Respiratory Comment: asthma Respiratory: Denies cough, Denies 7 - Gastrointestinal Gastrointestinal: Denies abdominal pain, Denies diarrhea, Denies nausea, Denies vomiting - Genitourinary (Female) Comment: kidney transplant Genitourinary: Denies dysuria, Denies hematuria - Menstruation Menstruation: Reports postmenopausal - Musculoskeletal Comment: Rheumatoid arthritis, lupus - Integumentary Integumentary: Reports as per HPI - Neurological Comment: difficulty with gait Neurological: Denies numbness, Denies weakness - Psychiatric Psychiatric: Denies anxiety, Denies depression - Endocrine Comment: diabetes - Hematologic/Lymphatic Comment: one baby aspirin/day - Allergic/Immunologic Allergic/Immunologic: Reports as per HPI Past Medical History Past Medical History: Asthma, Cancer, GERD/Reflux, Hypertension, Musculoskeletal Disorder, Renal Disease Additional Past Medical History / Comment(s): GOUT, HEART MURMUR, BACK PAIN- SPINAL STENOSIS WITH SPURS AND PROLAPSED DISCS-SHE HAS 2 SPINAL CORD STIMULATORS ANNEMARIE LOWER BACK. STAGE 5 KIDNEY FAILURE. ANAL CANCER. KIDNEY TRANSPLANT. History of Any Multi-Drug Resistant Organisms: None Reported Past Surgical History: Adenoidectomy, Appendectomy, Cholecystectomy, Joint Replacement, Tonsillectomy, Uterine Ablation Additional Past Surgical History / Comment(s): RT CATARACT, EAR SURGERY, SPINAL CORD STIMULATORS. REPLACEMENTS OF LT SHOULDER, LT HIP & ANNEMARIE KNEES. KIDNEY TRANSPLANT. Past Anesthesia/Blood Transfusion Reactions: No Reported Reaction Additional Past Anesthesia/Blood Transfusion Reaction / Comment(s): HX OF SEVERAL BLOOD TRANSFUSIONS, NO REACTIONS. Smoking Status: Former smoker Medications and Allergies Home Medications Medication Instructions Recorded Confirmed Type Febuxostat [Uloric] 40 mg PO DAILY 04/01/14 11/14/19 History HYDROcodone/APAP 10-325MG [Delancey 1 tab PO Q6H PRN 04/01/14 10/25/19 History 10-325] Montelukast [Singulair] 10 mg PO HS 04/01/14 11/14/19 History Rituxan(Unknown Dose) 1 dose IV Q180D 04/01/14 11/14/19 History buPROPion [Wellbutrin] 100 mg PO DAILY 04/01/14 11/14/19 History predniSONE 5 mg PO DAILY 04/01/14 11/14/19 History traZODone HCL [Desyrel] 100 mg PO HS 04/01/14 11/14/19 History Omeprazole [PriLOSEC] 20 mg PO AC-BID #28 cap 04/03/14 11/14/19 Rx Aspirin 81 mg PO DAILY 06/14/18 11/14/19 History Cholecalciferol [Vitamin D3 (25 1,000 unit PO DAILY 06/14/18 11/14/19 History Mcg = 1000 Iu)] Insulin Glargine [Lantus] 20 units SQ AC-BRKFST 06/14/18 11/14/19 History lisinopriL [Zestril] 10 mg PO DAILY 09/26/18 11/14/19 History Albuterol Sulfate [Ventolin HFA] 1 puff INHALATION RT-Q4H PRN 08/09/19 11/14/19 History Atorvastatin Calcium [Lipitor] 10 mg PO DAILY 08/09/19 11/14/19 History Cinacalcet HCl [Sensipar] 30 mg PO FR 08/09/19 11/14/19 History INSULIN ASPART (NovoLOG) [NovoLOG See Protocol SQ AC-TID PRN 08/09/19 11/14/19 History (formulary)] NIFEdipine [Procardia XL] 90 mg PO DIRECTED 08/09/19 11/14/19 History sitaGLIPtin PHOSPHATE [Januvia] 100 mg PO DAILY 08/09/19 11/14/19 History Everolimus [Zortress] 3 mg PO HS 08/10/19 11/14/19 History Everolimus [Zortress] 4 mg PO QAM 08/10/19 11/14/19 History Amoxic-Pot Clav 875-125Mg 1 tab PO Q12HR 3 Days #14 tab 08/13/19 11/14/19 Rx [Augmentin 875-125] Tacrolimus [Prograf] 7 mg PO BID #60 cap 08/13/19 11/14/19 Rx Allergies Allergy/AdvReac Type Severity Reaction Status Date / Time povidone-iodine Allergy Unknown Rash/Hives Verified 11/15/19 12:58 [From Betadine] soap [From Betadine] Allergy Unknown Rash/Hives Verified 11/15/19 12:58 adhesive AdvReac Unknown Rash/Hives Verified 11/15/19 12:58 Beta-Blockers AdvReac Unknown UNABLE TO Verified 11/15/19 12:58 (Beta-Adrenergic Bloc TAKE DUE TO ASTHMA NSAIDS (Non-Steroidal AdvReac Unknown UNABLE TO Verified 11/15/19 12:58 Anti-Inflamma TAKE DUE TO KIDNEY FAILURE Surgical - Exam BMI 25.7 - General no distress - Eyes normal ocular movement - ENT no hearing loss, no congestion - Neck trachea midline - Respiratory normal respiratory effort, clear to auscultation - Cardiovascular Rhythm: regular Heart Sounds: normal: S1, S2 - Abdomen Abdomen: soft, non tender, no guarding, no rigid, no rebound - Neurologic no disoriented, no combative - Musculoskeletal uses a walker - Psychiatric oriented to time, oriented to person, oriented to place, speech is normal, memory intact breast exam: BRA 46DD inspection: grade 3 ptosis bilateral palpation: right breasts: Multiple positional exam fibrocystic changes, no dominant masses or nodules of concern Right axilla: No adenopathy of concern Left breast: Multi-positional exam of dominant masses or nodules of concern open sore approximately 4 cm x 2 cm in 10:30 to 11 o'clock position Left axilla: No adenopathy of concern Assessment and Plan Assessment: Impression: 1. Open area of most likely pyoderma gangrenosum, which has increased in size and is failing care at the wound clinic; the patient is presently using steroids and tacrolimus without any improvement in healing 2. Diabetes 3. Lupus 4. Arthritis 5. Hypertension Plan: 1. appointment with dermatology; Dr. Noble 2. We have discussed wide excision of the area, I discussed this with Dr. Benjamin from the wound clinic. As all other options have failed to this point the patient would like us to proceed with this option 3. Patient to follow up after seen by dermatology CC: Dr. Benjamin encounter 30 minutes, > 50% of time in planning and counselling We have discussed risks and benefits of the procedure including the possibility of total wound nonhealing. The patient understands and wishes us to proceed.
== END | disposition home or self-care (01) ==
LOC: WWCWWP 12:20
PROVIDERS: ATTEND Surgery
DX: Z53.9 Procedure and treatment not carried out, unspecified reason (principal)

== ENCOUNTER 2021-04-14 13:17 | Inpatient (IN) | payer MEDICARE, BC ==
--- NOTE | 2021-04-14 13:50 | ED ---
General Adult HPI - General Chief complaint: Altered Mental Status Stated complaint: altered mental status Time Seen by Provider: 04/14/21 13:25 Source: patient, EMS, RN notes reviewed, old records reviewed Mode of arrival: EMS Limitations: altered mental status - History of Present Illness Initial comments: This a 66-year-old female presents emergency Department from a correction we have no one with the patient the patient is unable to give a history and the paramedics adopted patient STATED that the correction had no history other than she was altered and has been altered for the last week. Patient did state she had diarrhea and we verified that. Patient has no other complaints at this time but again she is a very poor historian and she is only alert and oriented times one. - Related Data Home Medications Medication Instructions Recorded Confirmed buPROPion [Wellbutrin] 100 mg PO DAILY@0700 04/01/14 04/14/21 predniSONE 5 mg PO DAILY@0700 04/01/14 04/14/21 traZODone HCL [Desyrel] 100 mg PO HS 04/01/14 04/14/21 Cinacalcet HCl [Sensipar] 30 mg PO DAILY@0700 08/09/19 04/14/21 Acetaminophen Tab [Tylenol] 650 mg PO Q6H 04/14/21 04/14/21 Aspirin EC [Ecotrin Low Dose] 81 mg PO DAILY@0704/14/21 04/14/21 Atorvastatin Calcium [Lipitor] 10 mg PO DAILY@1700 04/14/21 04/14/21 Cetirizine HCl [Zyrtec] 10 mg PO DAILY@0704/14/21 04/14/21 Cholecalciferol [Vitamin D3 (25 25 mcg PO DAILY@69904/14/21 04/14/21 Mcg = 1000 Iu)] INSULIN LISPRO (HumaLOG) [humaLOG] See Protocol SQ ACHS 04/14/21 04/14/21 Insulin Glargine,Hum.rec.anlog 20 unit SQ DAILY@0800 04/14/21 04/14/21 [Lantus Solostar Pen] Magnesium Hydroxide [Milk of 7,200 mg PO Q24H PRN 04/14/21 04/14/21 Magnesia Concentrate] Magnesium Oxide 400 mg PO BID@0700,2100 04/14/21 04/14/21 Med Plus 90 ml PO TID@0900,1400,2100 04/14/21 04/14/21 Megestrol Acetate [Megace] 200 mg PO DAILY@0800 04/14/21 04/14/21 Omeprazole [PriLOSEC] 20 mg PO DAILY@0700 04/14/21 04/14/21 Ondansetron [Zofran ODT] 4 mg PO Q6H PRN 04/14/21 04/14/21 Sodium Bicarbonate Tab 650 mg PO TID@0700,1300,2100 04/14/21 04/14/21 guaiFENesin [Diabetic Tussin Ex] 200 mg PO Q4H PRN 04/14/21 04/14/21 Previous Rx's Medication Instructions Recorded Tacrolimus [Prograf] 7 mg PO BID #60 cap 08/13/19 Allergies Allergy/AdvReac Type Severity Reaction Status Date / Time adhesive Allergy Unknown Rash/Hives Verified 04/14/21 14:43 povidone-iodine Allergy Unknown Rash/Hives Verified 04/14/21 14:43 [From Betadine] soap [From Betadine] Allergy Unknown Rash/Hives Verified 04/14/21 14:43 tolmetin Allergy Unknown Verified 04/14/21 14:43 Beta-Blockers AdvReac Unknown UNABLE TO Verified 04/14/21 14:43 (Beta-Adrenergic Bloc TAKE DUE TO ASTHMA NSAIDS (Non-Steroidal AdvReac Unknown UNABLE TO Verified 04/14/21 14:43 Anti-Inflamma TAKE DUE TO KIDNEY FAILURE Review of Systems ROS Statement: Those systems with pertinent positive or pertinent negative responses have been documented in the HPI. ROS Other: All systems not noted in ROS Statement are negative. Past Medical History Past Medical History: Asthma, Cancer, GERD/Reflux, Hypertension, Musculoskeletal Disorder, Renal Disease Additional Past Medical History / Comment(s): GOUT, HEART MURMUR, BACK PAIN- SPINAL STENOSIS WITH SPURS AND PROLAPSED DISCS-SHE HAS 2 SPINAL CORD STIMULATORS ANNEMARIE LOWER BACK. STAGE 5 KIDNEY FAILURE. ANAL CANCER. KIDNEY TRANSPLANT. History of Any Multi-Drug Resistant Organisms: None Reported Past Surgical History: Adenoidectomy, Appendectomy, Cholecystectomy, Joint Replacement, Tonsillectomy, Uterine Ablation Additional Past Surgical History / Comment(s): RT CATARACT, EAR SURGERY, SPINAL CORD STIMULATORS. REPLACEMENTS OF LT SHOULDER, LT HIP & ANNEMARIE KNEES. KIDNEY TRANSPLANT. Past Anesthesia/Blood Transfusion Reactions: No Reported Reaction Additional Past Anesthesia/Blood Transfusion Reaction / Comment(s): HX OF SEVERAL BLOOD TRANSFUSIONS, NO REACTIONS. Past Psychological History: No Psychological Hx Reported Smoking Status: Former smoker Past Alcohol Use History: None Reported Past Drug Use History: None Reported General Exam - General Exam Comments Initial Comments: GENERAL: Patient is well-developed and well-nourished. Patient is nontoxic and well- hydrated and is in mild distress. ENT: Neck is soft and supple. No significant lymphadenopathy is noted. Oropharynx is clear. Moist mucous membranes. Neck has full range of motion without eliciting any pain. EYES: The sclera were anicteric and conjunctiva were pink and moist. Extraocular movements were intact and pupils were equal round and reactive to light. Eyelids were unremarkable. PULMONARY: Unlabored respirations. Good breath sounds bilaterally. No audible rales rhonchi or wheezing was noted. CARDIOVASCULAR: There is a regular rate and rhythm without any murmurs gallops or rubs. ABDOMEN: Soft and nontender with normal bowel sounds. SKIN: Skin is clear with no lesions or rashes and otherwise unremarkable. NEUROLOGIC: Patient is alert and oriented x3. Cranial nerves II through XII are grossly intact. Motor and sensory are also intact. Normal speech, volume and content. Symmetrical smile. MUSCULOSKELETAL: Normal extremities with adequate strength and full range of motion. LYMPHATICS: No significant lymphadenopathy is noted PSYCHIATRIC: Normal psychiatric evaluation. Limitations: altered mental status Course Vital Signs 04/14/21 04/14/21 13:22 15:37 Temperature 98.6 F Pulse Rate 116 H 99 Respiratory 18 20 Rate Blood Pressure 158/73 148/77 O2 Sat by Pulse 96 100 Oximetry Medical Decision Making - Medical Decision Making EKG shows normal sinus rhythm with occasional PACs at a rate of 99 bpm WA interval is on a 93 QRS 94 QT interval 371 QTC is 427. Patient's EKG shows no ST segment elevation or depression. Patient has inverted T waves in leads II, III, and F aVF. Chest x-ray shows no acute abnormality. Patient was diagnosed with urinary tract infection at 3 PM. Patient was started on antibiotics at that time. Patient was also called it positive. Patient did not need supplemental oxygen. I spoke with Dr. Chavez he agreed to admit the patient admitted the patient I wrote admitting orders. - Lab Data Result diagrams: 04/14/21 13:53 04/14/21 13:53 Lab Results 04/14/21 04/14/21 04/14/21 Range/Units 13:53 13:53 13:53 WBC 38.0 H (3.8-10.6) k/uL RBC 3.88 (3.80-5.40) m/uL Hgb 12.7 (11.4-16.0) gm/dL Hct 38.8 (34.0-46.0) % MCV 100.0 (80.0-100.0) fL MCH 32.8 (25.0-35.0) pg MCHC 32.8 (31.0-37.0) g/dL RDW 14.7 (11.5-15.5) % Plt Count 284 (150-450) k/uL MPV 9.6 Neutrophils % 93 % Lymphocytes % 1 % Monocytes % 4 % Eosinophils % 0 % Basophils % 0 % Neutrophils # 35.4 H (1.3-7.7) k/uL Lymphocytes # 0.5 L (1.0-4.8) k/uL Monocytes # 1.6 H (0-1.0) k/uL Eosinophils # 0.1 (0-0.7) k/uL Basophils # 0.1 (0-0.2) k/uL Manual Slide Review Performed Macrocytosis Slight PT 10.2 (9.0-12.0) sec INR 0.9 (<1.2) APTT 24.9 (22.0-30.0) sec Sodium (137-145) mmol/L Potassium (3.5-5.1) mmol/L Chloride (98-107) mmol/L Carbon Dioxide (22-30) mmol/L Anion Gap mmol/L BUN (7-17) mg/dL Creatinine (0.52-1.04) mg/dL Est GFR (CKD-EPI)AfAm (>60 ml/min/1.73 sqM) Est GFR (CKD-EPI)NonAf (>60 ml/min/1.73 sqM) Glucose (74-99) mg/dL Plasma Lactic Acid Antoni (0.7-2.0) mmol/L Calcium (8.4-10.2) mg/dL Total Bilirubin (0.2-1.3) mg/dL AST (14-36) U/L ALT (4-34) U/L Alkaline Phosphatase (38-126) U/L Total Protein (6.3-8.2) g/dL Albumin (3.5-5.0) g/dL Urine Color Yellow Urine Appearance Turbid H (Clear) Urine pH 5.5 (5.0-8.0) Ur Specific [place] 1.020 (1.001-1.035) Urine Protein 2+ H (Negative) Urine Glucose (UA) Negative (Negative) Urine Ketones 1+ H (Negative) Urine Blood Moderate H (Negative) Urine Nitrite Negative (Negative) Urine Bilirubin Negative (Negative) Urine Urobilinogen <2.0 (<2.0) mg/dL Ur Leukocyte Esterase Large H (Negative) Urine RBC 71 H (0-5) /hpf Urine WBC >182 H (0-5) /hpf Urine WBC Clumps Many H (None) /hpf Urine Bacteria Many H (None) /hpf Coronavirus (PCR) (Not Detectd) 04/14/21 04/14/21 04/14/21 Range/Units 13:53 13:53 13:53 WBC (3.8-10.6) k/uL RBC (3.80-5.40) m/uL Hgb (11.4-16.0) gm/dL Hct (34.0-46.0) % MCV (80.0-100.0) fL MCH (25.0-35.0) pg MCHC (31.0-37.0) g/dL RDW (11.5-15.5) % Plt Count (150-450) k/uL MPV Neutrophils % % Lymphocytes % % Monocytes % % Eosinophils % % Basophils % % Neutrophils # (1.3-7.7) k/uL Lymphocytes # (1.0-4.8) k/uL Monocytes # (0-1.0) k/uL Eosinophils # (0-0.7) k/uL Basophils # (0-0.2) k/uL Manual Slide Review Macrocytosis PT (9.0-12.0) sec INR (<1.2) APTT (22.0-30.0) sec Sodium 142 (137-145) mmol/L Potassium 4.4 (3.5-5.1) mmol/L Chloride 110 H (98-107) mmol/L Carbon Dioxide 20 L (22-30) mmol/L Anion Gap 12 mmol/L BUN 52 H (7-17) mg/dL Creatinine 2.47 H (0.52-1.04) mg/dL Est GFR (CKD-EPI)AfAm 23 (>60 ml/min/1.73 sqM) Est GFR (CKD-EPI)NonAf 20 (>60 ml/min/1.73 sqM) Glucose 155 H (74-99) mg/dL Plasma Lactic Acid Antoni 2.1 H* (0.7-2.0) mmol/L Calcium 8.8 (8.4-10.2) mg/dL Total Bilirubin 1.0 (0.2-1.3) mg/dL AST 26 (14-36) U/L ALT 12 (4-34) U/L Alkaline Phosphatase 138 H (38-126) U/L Total Protein 5.9 L (6.3-8.2) g/dL Albumin 3.2 L (3.5-5.0) g/dL Urine Color Urine Appearance (Clear) Urine pH (5.0-8.0) Ur Specific [place] (1.001-1.035) Urine Protein (Negative) Urine Glucose (UA) (Negative) Urine Ketones (Negative) Urine Blood (Negative) Urine Nitrite (Negative) Urine Bilirubin (Negative) Urine Urobilinogen (<2.0) mg/dL Ur Leukocyte Esterase (Negative) Urine RBC (0-5) /hpf Urine WBC (0-5) /hpf Urine WBC Clumps (None) /hpf Urine Bacteria (None) /hpf Coronavirus (PCR) Detected A (Not Detectd) Disposition Clinical Impression: Urinary tract infection, Altered mental status, Sepsis, Leukocytosis, Acute re nal failure (ARF), History of kidney transplant Disposition: ADMITTED IP TO THIS HOSP Referrals: Justus Bennett MD [Primary Care Provider] - 1-2 days Time of Disposition: 15:43
[2021-04-14] MEDS: SODIUM CHLORIDE 0.9% 500 ML 500 ML IV SCH (13:57)
[2021-04-14 14:13] LABS: Basophils # (A) 0.1 k/uL (0-0.2); Basophils % (A) 0 %; Eosinophils # (A) 0.1 k/uL (0-0.7); Eosinophils % (A) 0 %; HCT 38.8 % (34.0-46.0); HGB 12.7 gm/dL (11.4-16.0); Lymphocytes # (A) 0.5 k/uL (1.0-4.8); Lymphocytes % (A) 1 %; MCH 32.8 pg (25.0-35.0); MCHC 32.8 g/dL (31.0-37.0); Macrocytosis Slight; Mean Platelet Volume 9.6; Monocytes # (A) 1.6 k/uL (0-1.0); Monocytes % (A) 4 %; Neutrophils # (A) 35.4 k/uL (1.3-7.7); Neutrophils % (A) 93 %; Platelet Count 284 k/uL (150-450); RBC 3.88 m/uL (3.80-5.40); RDW 14.7 % (11.5-15.5)
[2021-04-14 14:24] LABS: Albumin 3.2 g/dL (3.5-5.0); Calcium 8.8 mg/dL (8.4-10.2); Potassium 4.4 mmol/L (3.5-5.1); Total Protein 5.9 g/dL (6.3-8.2)
[2021-04-14 14:28] LABS: Appearance,Urine Turbid (Clear); Bacteria,Urine Many /hpf; Bilirubin,Urine Negative (Negative); Blood,Urine Moderate (Negative); Color,Urine Yellow; Glucose,Urine (UA) Negative (Negative); Ketones,Urine 1+ (Negative); Leukocyte Esterase,Urine Large (Negative); Nitrite,Urine Negative (Negative); PH, Urine 5.5 (5.0-8.0); Protein,Urine 2+ (Negative); RBC,Urine 71 /hpf (0-5); Urobilinogen,Urine <2.0 mg/dL (<2.0); WBC,Urine >182 /hpf (0-5)
[2021-04-14 14:39] LABS: INR 0.9 (<1.2); Partial Thromboplastin Time 24.9 sec (22.0-30.0); Prothrombin Time 10.2 sec (9.0-12.0)
--- NOTE | 2021-04-14 14:48 | CT ---
EXAMINATION TYPE: CT brain wo con DATE OF EXAM: 04/14/2021 COMPARISON: CT dated 08/11/2019 HISTORY: Altered mental status CT DLP: 1055.4 mGycm Automated exposure control for dose reduction was used. TECHNIQUE: Multiplanar CT scan of the brain without IV contrast administration. FINDINGS: Motion artifacts. Generalized brain volume loss changes, more than expected for the patient's age, un derlying neurodegenerative disease cannot be excluded. Scattered arterial atherosclerotic calcificati ons. Suspected minimal bilateral cerebral white matter chronic microvascular ischemic changes. No acute intracranial hemorrhage or gross acute cortical infarct. No midline shift, herniation or murtaza triculomegaly. Unremarkable basal cisterns, sella and CP angles. No gross space-occupying lesion, vas ogenic edema or mass effect. The orbits are not completely included in the scan. Clear visualized paranasal sinuses and mastoid ai r cells. No aggressive bone lesion. Degenerative changes of the TMJs more on the right side. IMPRESSION: No acute intracranial hemorrhage or gross acute cortical infarct with the limitation of the artifactu al images. Brain volume loss changes, more than expected for the patient's age. Underlying neurodegenerative dis ease cannot be excluded, please correlate clinically. Further elective neurology consultation can be considered.
--- NOTE | 2021-04-14 15:03 | XR ---
EXAMINATION TYPE: XR chest 2V DATE OF EXAM: 04/14/2021 COMPARISON: None HISTORY: 66-year-old female with fever TECHNIQUE: AP and lateral views FINDINGS: Heart normal size. Aorta within normal limits. Mild hyperinflation. No stella consolidation. Left shou lder arthroplasty. Loss of the subacromial space suggesting underlying full-thickness rotator cuff te ar. Thinning of the glenoid articular cartilage here. Suspect prominent linear external artifact brent g the posterior lungs on the lateral wall stand view. IMPRESSION: 1. No definite acute cardiopulmonary process. 2. Left shoulder arthroplasty with underlying full-thickness rotator cuff tear and degenerative bony remodeling of the glenoid.
[2021-04-14] MEDS ORDERED: cefTRIAXone IN SWFI 1,000 MG/10 ML SYRINGE IVP STA (15:05)
[2021-04-14] MEDS ORDERED: SODIUM CHLORIDE 0.9% 1,000 ML IV ONE ×2 (15:07→15:43)
[2021-04-14] MEDS: PANTOPRAZOLE 40 MG/10 ML VIAL IVP SCH (16:24)
--- NOTE | 2021-04-14 16:31 | HP ---
HISTORY AND PHYSICAL CHIEF COMPLAINTS: Fever, change in mental status, UTI, diarrhea. HISTORY OF PRESENT ILLNESS: This 66-year-old woman with a past medical history of asthma, GERD, hypertension, [facility] with complaints of fever, change in mental status and diarrhea. The patient was found to have acute UTI. The patient was admitted for further evaluation and treatment. Patient unable to give a coherent history; most of the history is taken from my discussion with staff and review of the chart and discussion with the ER physician. Patient had abscess previously. The patient also has history of kidney transplantation. The patient is COVID positive. PAST MEDICAL HISTORY: Asthma, hypertension, renal failure. Reviewed. HOME MEDICATIONS: Reviewed. They include Zofran, milk of magnesia, Humalog scale, sodium bicarb. Doses are reviewed. ALLERGIES: ADHESIVE TAPES, BETADINE. Reviewed. REVIEW OF SYSTEMS: Fourteen-point review of systems negative except as mentioned above. PHYSICAL EXAMINATION: The patient is confused. Pulse 116, blood pressure 150/73, respiration 18. Oral mucosa dry. NECK: No jugular venous distention. CARDIOVASCULAR: S1, S2 muffled. RESPIRATION: A few scattered rhonchi and crackles. ABDOMEN: Soft. Mild diffuse tenderness. No guarding. No rigidity. LEGS: No edema. No swelling. NERVOUS SYSTEM: Diffusely weak. SKIN: No ulcer, rash, bleeding. JOINTS: No active deforming arthropathy. LYMPHATICS: No lymph node palpable in neck, axillae or groin. LABS: WBC 38 and sodium ntd Potassium 4.4. ASSESSMENT: 1. Acute urinary tract infection with sepsis, present on admission. 2. Severe dehydration. 3. Chronic kidney disease, stage 3. 4. Diarrhea. Rule out Clostridium difficile colitis. 5. COVID-19 positive. RECOMMENDATIONS AND DISCUSSION: In this 66-year-old woman who presented with multiple complex medical issues, we will monitor the patient closely. I would recommend broad-spectrum IV antibiotics. Check for C difficile. Infectious disease evaluation. Resume the home medications. IV fluids. Repeat labs. The prognosis is extremely guarded because of multiple complex medical issues. Further recommendations to follow. See orders for further details. Old charts are reviewed. MMODL / IJN: [id number] / MTDD
[2021-04-14] MEDS: ATORVASTATIN 10 MG TAB PO SCH (18:07)
[2021-04-14] MEDS: SODIUM BICARBONATE TAB 650 MG TAB PO SCH (22:02)
[2021-04-14] MEDS: TACROLIMUS 1 MG CAP PO SCH (22:02)
[2021-04-14] MEDS: MAGNESIUM OXIDE 400 MG TAB PO SCH (22:02)
[2021-04-14] MEDS: HEPARIN SODIUM,PORCINE/PF 5,000 UNIT/0.5 ML SYRINGE SQ SCH (22:02)
[2021-04-15] MEDS: TACROLIMUS 1 MG CAP PO SCH ×2 (08:57→23:57)
[2021-04-15] MEDS: CINACALCET 30 MG TAB PO SCH (08:57)
[2021-04-15] MEDS: HEPARIN SODIUM,PORCINE/PF 5,000 UNIT/0.5 ML SYRINGE SQ SCH ×2 (08:57→23:24)
[2021-04-15] MEDS: SODIUM BICARBONATE TAB 650 MG TAB PO SCH ×3 (08:58→23:25)
[2021-04-15] MEDS: MAGNESIUM OXIDE 400 MG TAB PO SCH ×2 (08:58→23:25)
[2021-04-15] MEDS: ASPIRIN 81 MG PO SCH (08:58)
[2021-04-15] MEDS: MEGESTROL 400 MG/10 ML CUP PO SCH (08:59)
[2021-04-15] MEDS: PANTOPRAZOLE 40 MG/10 ML VIAL IVP SCH (08:59)
[2021-04-15] MEDS: CHOLECALCIFEROL 25 MCG (1000 IU) TABLET PO SCH (09:00)
[2021-04-15 09:22] LABS: Glucose,Whole Blood 92 mg/dL (75-99)
[2021-04-15 09:26] LABS: HCT 39.9 % (37.2-46.3); HGB 12.3 g/dL (12.0-15.0); MCH 31.5 pg (27.0-32.0); MCHC 30.8 g/dL (32.0-37.0); MCV 102.3 fL (80.0-97.0); Mean Platelet Volume 12.2 fL (9.5-12.2); NRBC Per 100 WBC 0 /100 WBCS (0.0-0.0); Platelet Count 257 X 10*3/uL (140-440); RDW 15.8 % (11.5-14.5); WBC 29.01 X 10*3/uL (4.50-10.00)
[2021-04-15] MEDS: INSULIN DETEMIR (LEVEMIR) 100 UNIT/ML SYR SQ SCH (10:33)
[2021-04-15 10:42] LABS: Basophils % (A) 0.3 %; Eosinophils # (A) 0.02 X 10*3/uL (0.04-0.35); Eosinophils % (A) 0.1 %; Lymphocytes # (A) 0.73 X 10*3/uL (0.90-5.00); Lymphocytes % (A) 2.5 %; Monocytes # (A) 1.88 X 10*3/uL (0.20-1.00); Monocytes % (A) 6.5 %; Neutrophils % (A) 88.6 %
[2021-04-15 10:43] LABS: Acanthocytes 3+
--- NOTE | 2021-04-15 11:12 | P.CONS ---
History of Present Illness - Reason for Consult Consult date: 04/14/21 UTI Requesting physician: Ledy Chavez - Chief Complaint mental status changes x few days - History of Present Illness History of Present Illness : Patient is a 66-year female presented to the ER this afternoon from a local skilled nursing for evaluation of mental status changes in this patient symptom has been going on for about a week before presentation to the hospital the patient also having diarrhea but not very clear for how many days the patient did have diarrhea and she was unable to tell me he is also complaining of some abdominal pain however was unable to to quantify her pain no clear history of any nausea or vomiting patient on presentation to the hospital was afebrile she is currently breathing comfortably on room air patient was noticed to have white count of 38,000 with a left shift BUN and creatinine were elevated did have elevated lactic acid she also have a positive UA, patient did have positive COVID test apparently the patient has completed three doses of [employer]oor COVID vaccines with a booster shot in October and the patient appar ently did have a positive COVID test about 18 days ago at the skilled nursing as per information provided by the patient nurse in the ER patient was unable to confirm those findings to me infectious disease was consulted because of elevated white count and UTI most information has been obtained from review the chart and talking nursing staff and the patient self is not a very good historian Review of system: Positive points mentioned in history of present illness complete review could not be obtained because of his underlying medical condition. Past medical history : Reviewed, documented below Past surgical history : Reviewed, documented below Social history: Reviewed, documented below Medications: Reviewed, as documented below EXAMINATION: Vital sigans= Reviewed and documented below GENERAL DESCRIPTION elderly female lying in bed, no distress. No tachypnea or accessory muscle of respiration use. HEENT: Shows Pallor , no scleral icterus. Oral mucous membrane is dry. NECK: Trachea central, no thyromegaly. LUNGS: Unlabored breathing. Decrease intensity breath sound. No wheeze or crackle. HEART: S1, S2, regular rate and rhythm. ABDOMEN: Soft, mild left-sided tenderness , guarding or rigidity EXTREMITIES: No edema feet SKIN: No rash, no masses palpable. NEUROLOGICAL: The patient is awake, nonverbal orientation could not be determined LABS AND RADIOLOGY: Reviewed results see below Assessment : 1-Patient presented to hospital with mental status changes source more likely urinary as this patient did have a significantly positive UA plus minus a component of dehydration from the diarrhea the patient has been suffering with elevated BUN/creatinine, underlying colitis need to be rule out as the patient was tender to the left lower quadrant area 2-positive Covid test in this patient who is fully vaccinated for COVID-19 patient currently do not have any respiratory symptoms he is breathing comfortably on room air satting 98% and had no evidence of acute cardiopulmonary process on the chest x-ray the patient initial diagnosis of covid19 about 18 days ago currently do not need any specific treatment for the positive Covid test Plan: 1-patient to continue with Rocephin 2 g daily we will add Flagyl 2-we will wait for stool for C. difficile and check a stool culture 3-gentle IV fluid 4-May benefit from a CT abdominal pelvis once the patient is more awake and able to drink some contrast 5-if we can confirm the patient initial positive Covid test at the skilled nursing was 18 days ago patient will not need droplet isolation as currently not behaving as acute covid19 pneumonia We will follow on clinical condition and cultures to further adjust medication if needed Thank you for this consultation we will follow the patient along with you Past Medical History Past Medical History: Asthma, Cancer, GERD/Reflux, Hypertension, Musculoskeletal Disorder, Renal Disease Additional Past Medical History / Comment(s): GOUT, HEART MURMUR, BACK PAIN- SPINAL STENOSIS WITH SPURS AND PROLAPSED DISCS-SHE HAS 2 SPINAL CORD STIMULATORS ANNEMARIE LOWER BACK. STAGE 5 KIDNEY FAILURE. ANAL CANCER. KIDNEY TRANSPLANT. History of Any Multi-Drug Resistant Organisms: None Reported Past Surgical History: Adenoidectomy, Appendectomy, Cholecystectomy, Joint Replacement, Tonsillectomy, Uterine Ablation Additional Past Surgical History / Comment(s): RT CATARACT, EAR SURGERY, SPINAL CORD STIMULATORS. REPLACEMENTS OF LT SHOULDER, LT HIP & ANNEMARIE KNEES. KIDNEY TRANSPLANT. Past Anesthesia/Blood Transfusion Reactions: No Reported Reaction Additional Past Anesthesia/Blood Transfusion Reaction / Comm: HX OF SEVERAL BLOOD TRANSFUSIONS, NO REACTIONS. Past Psychological History: No Psychological Hx Reported Smoking Status: Former smoker Past Alcohol Use History: None Reported Past Drug Use History: None Reported Medications and Allergies Home Medications Medication Instructions Recorded Confirmed Type buPROPion [Wellbutrin] 100 mg PO DAILY@0700 04/01/14 04/14/21 History predniSONE 5 mg PO DAILY@0700 04/01/14 04/14/21 History traZODone HCL [Desyrel] 100 mg PO HS 04/01/14 04/14/21 History Cinacalcet HCl [Sensipar] 30 mg PO DAILY@0700 08/09/19 04/14/21 History Tacrolimus [Prograf] 7 mg PO BID #60 cap 08/13/19 04/14/21 Rx Acetaminophen Tab [Tylenol] 650 mg PO Q6H 04/14/21 04/14/21 History Aspirin EC [Ecotrin Low Dose] 81 mg PO DAILY@0700 04/14/21 04/14/21 History Atorvastatin Calcium [Lipitor] 10 mg PO DAILY@1700 04/14/21 04/14/21 History Cetirizine HCl [Zyrtec] 10 mg PO DAILY@0700 04/14/21 04/14/21 History Cholecalciferol [Vitamin D3 (25 25 mcg PO DAILY@0700 04/14/21 04/14/21 History Mcg = 1000 Iu)] INSULIN LISPRO (HumaLOG) [humaLOG] See Protocol SQ ACHS 04/14/21 04/14/21 History Insulin Glargine,Hum.rec.anlog 20 unit SQ DAILY@0800 04/14/21 04/14/21 History [Lantus Solostar Pen] Magnesium Hydroxide [Milk of 7,200 mg PO Q24H PRN 04/14/21 04/14/21 History Magnesia Concentrate] Magnesium Oxide 400 mg PO BID@0700,2100 04/14/21 04/14/21 History Med Plus 90 ml PO TID@0900,1400,2100 04/14/21 04/14/21 History Megestrol Acetate [Megace] 200 mg PO DAILY@0800 04/14/21 04/14/21 History Omeprazole [PriLOSEC] 20 mg PO DAILY@0700 04/14/21 04/14/21 History Ondansetron [Zofran ODT] 4 mg PO Q6H PRN 04/14/21 04/14/21 History Sodium Bicarbonate Tab 650 mg PO TID@0700,1300,2100 04/14/21 04/14/21 History guaiFENesin [Diabetic Tussin Ex] 200 mg PO Q4H PRN 04/14/21 04/14/21 History Allergies Allergy/AdvReac Type Severity Reaction Status Date / Time adhesive Allergy Unknown Rash/Hives Verified 04/14/21 14:43 povidone-iodine Allergy Unknown Rash/Hives Verified 04/14/21 14:43 [From Betadine] soap [From Betadine] Allergy Unknown Rash/Hives Verified 04/14/21 14:43 tolmetin Allergy Unknown Verified 04/14/21 14:43 Beta-Blockers AdvReac Unknown UNABLE TO Verified 04/14/21 14:43 (Beta-Adrenergic Bloc TAKE DUE TO ASTHMA NSAIDS (Non-Steroidal AdvReac Unknown UNABLE TO Verified 04/14/21 14:43 Anti-Inflamma TAKE DUE TO KIDNEY FAILURE Physical Exam Vitals: Vital Signs Temp Pulse Resp BP Pulse Ox 04/14/21 15:37 99 20 148/77 100 04/14/21 13:22 98.6 F 116 H 18 158/73 96 Intake and Output 04/14/21 04/14/21 04/14/21 06:59 14:59 22:59 Other: Weight 68.039 kg Results CBC & Chem 7: 04/15/21 05:41 04/14/21 13:53 Labs: Abnormal Lab Results - Last 24 Hours (Table) 04/14/21 04/14/21 04/14/21 Range/Units 13:53 13:53 13:53 WBC 38.0 H (3.8-10.6) k/uL Neutrophils # 35.4 H (1.3-7.7) k/uL Lymphocytes # 0.5 L (1.0-4.8) k/uL Monocytes # 1.6 H (0-1.0) k/uL Chloride 110 H (98-107) mmol/L Carbon Dioxide 20 L (22-30) mmol/L BUN 52 H (7-17) mg/dL Creatinine 2.47 H (0.52-1.04) mg/dL Glucose 155 H (74-99) mg/dL Plasma Lactic Acid Antoni (0.7-2.0) mmol/L Alkaline Phosphatase 138 H (38-126) U/L Total Protein 5.9 L (6.3-8.2) g/dL Albumin 3.2 L (3.5-5.0) g/dL Urine Appearance Turbid H (Clear) Urine Protein 2+ H (Negative) Urine Ketones 1+ H (Negative) Urine Blood Moderate H (Negative) Ur Leukocyte Esterase Large H (Negative) Urine RBC 71 H (0-5) /hpf Urine WBC >182 H (0-5) /hpf Urine WBC Clumps Many H (None) /hpf Urine Bacteria Many H (None) /hpf Coronavirus (PCR) (Not Detectd) 04/14/21 04/14/21 Range/Units 13:53 13:53 WBC (3.8-10.6) k/uL Neutrophils # (1.3-7.7) k/uL Lymphocytes # (1.0-4.8) k/uL Monocytes # (0-1.0) k/uL Chloride (98-107) mmol/L Carbon Dioxide (22-30) mmol/L BUN (7-17) mg/dL Creatinine (0.52-1.04) mg/dL Glucose (74-99) mg/dL Plasma Lactic Acid Antoni 2.1 H* (0.7-2.0) mmol/L Alkaline Phosphatase (38-126) U/L Total Protein (6.3-8.2) g/dL Albumin (3.5-5.0) g/dL Urine Appearance (Clear) Urine Protein (Negative) Urine Ketones (Negative) Urine Blood (Negative) Ur Leukocyte Esterase (Negative) Urine RBC (0-5) /hpf Urine WBC (0-5) /hpf Urine WBC Clumps (None) /hpf Urine Bacteria (None) /hpf Coronavirus (PCR) Detected A (Not Detectd)
[2021-04-15 11:56] LABS: Glucose,Whole Blood 92 mg/dL (75-99)
[2021-04-15 12:27] LABS: African American GFR (CKD) 23.6 (60.0-200.0); Albumin 3.3 g/dL (3.8-4.9); Albumin/Globulin Ratio 1.58 (1.60-3.17); Anion Gap 19.7 mmol/L (10.00-18.00); BUN/Creat Ratio 17.53 Ratio (12.00-20.00); Blood Urea Nitrogen 42.6 mg/dL (9.0-27.0); Calcium 8.9 mg/dL (8.7-10.3); Carbon Dioxide 17.1 mmol/L (20.0-27.5); Globulin 2.1 g/dL (1.6-3.3); Non-African American GFR(CKD) 20.3 (60.0-200.0); Potassium 4.2 mmol/L (3.5-5.5); Total Bilirubin 0.4 mg/dL (0.30-1.20); Total Protein 5.4 g/dL (6.2-8.2)
[2021-04-15] MEDS: INSULIN ASPART (NovoLOG) 100 UNIT/ML VIAL SQ SCH ×3 (12:32→23:35)
[2021-04-15] MEDS: metroNIDAZOLE 500 MG TAB PO SCH ×3 (12:51→23:57)
--- NOTE | 2021-04-15 14:16 | CDI ---
Documentation Clarification Form Date: 04/15/2021 01:52:00 PM From: Chanda Ashby RN, CCDS Admit Date: 04/14/2021 03:43:00 PM Patient Name: Vicki Juarez Visit Number: [id number] Discharge Date: ATTENTION: The Clinical Documentation Specialists (CDI) and [facility] Coding Staff appreciate your assistance in clarifying documentation. Please respond to the clarification below the line at the bottom and electronically sign. The CDI & [facility] Coding staff will review the response and follow-up if needed. Please note: Queries are made part of the Legal Health Record. If you have any questions, please contact the author of this message via ITS. Dr. Ledy Chavez Your patient has the documented symptom of Altered Mental Status in the emergency department and H/P. Additional clarification regarding the etiology/cause of this symptom is requested. History/Risk Factors: Hypertension, Asthma, GERD, Kidney transplant, renal failure, Clinical Indicators: 66-year-old female present from [facility] with change in mental status. She was ruled in for acute UTI. 04/14 Labs: 38.0, Neutrophils 35.4, COVID- Detected 04/14 Vital signs: 158/73 116 18 98.6 04/14 Chest X Ray: No definite acute cardiopulmonary process 04/[address]: No acute intracranial hemorrhage or gross acute cortical infarct Treatment: Neuro assessment per protocol Rocephin 2GM IVPB Q 24 HRS Flagyl 500MG PO TID .9NS 1,000 IV Bolus then 100MLS/HR 04/14 Please clarify the etiology of the symptom of Altered Mental Status: [ ] Metabolic Encephalopathy [ ] Dementia (if know, specify Type and if with/without Behavioral Disturbance) [ ] Other condition (please specify) [ ] Unable to determine (Template Last Revised: March 2020) Altered mental status secondary to toxic and metabolic encephalopathy multifactorial with components of infection Julia He Signed By: <Electronically signed by Julia WILSON> 04/15/21 1530 <Electronically signed by Lavinia Karimi MD> 04/16/21 1008 <Electronically signed by Lavinia FERRER
[2021-04-15] MEDS: ACETAMINOPHEN TAB 325 MG TAB PO SCH ×2 (15:10→23:24)
--- NOTE | 2021-04-15 15:30 | P.PN ---
Subjective Progress Note Date: 04/15/21 This is a pleasant 66-year-old female who presents to Hospital with altered mental status as well as acute UTI and acute Covid infection. Patient is currently alert and oriented 1-2 she knows she is in the hospital unable to tell the year. She is a poor historian. She denies any pain however during exa mination there is suprapubic tenderness noted with palpation. She continues IV Rocephin, urine cultures currently pending. Patient was found to be covid positive, however she is on room air, there is no cough or shortness of breath noted. She is afebrile. Labs today show white count 29.01, sodium 147, potassium 4.2, chloride 111, CO2 17.1, BUN 42.6, creatinine 2.4, blood glucose 90, lactic acid improved to 1.7, alk phos normalized at 117, total protein 5.4. ROS Constitutional: Reports fatigue denied any fever. Cardio vascular: denied any chest pain, palpitations Gastrointestinal denied any nausea vomiting Pulmonary: Denied any shortness of breath cough Neurologic denied any new focal deficits All inpatient medications were reviewed and appropriate changes in these medications as dictated in the interval history and assessment and plan. PHYSICAL EXAMINATION: GENERAL: The patient is alert and oriented x1-2, not in any acute distress. Well developed, well nourished. HEENT: Pupils are round and equally reacting to light. EOMI. No scleral icterus. No conjunctival pallor. Normocephalic, atraumatic. No pharyngeal erythema. No thyromegaly. CARDIOVASCULAR: S1 and S2 present. No murmurs, rubs, or gallops. PULMONARY: Chest is clear to auscultation, no wheezing or crackles. ABDOMEN: Soft, nontender, nondistended, normoactive bowel sounds. No palpable organomegaly. MUSCULOSKELETAL: No joint swelling or deformity. EXTREMITIES: No cyanosis, clubbing, or pedal edema. NEUROLOGICAL: Gross neurological examination did not reveal any focal deficits. SKIN: No rashes. Assessment and plan Assessment Acute UTI with sepsis, present on admission, cultures pending, on IV rocephin Altered mental status secondary to toxic and metabolic encephalopathy multifactorial with components of infection Acute kidney injury secondary to severe dehydration Anion gap Metabolic Acidosis secondary to kidney disease Acute COVID infection with out evidence for pneumonia, on room air Diarrhea, cdif negative possibly due to COVID infection, on oral flagyl hypernatremia 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, blood sugars marginal History of kidney transplant GERD GI Prophylaxis: Protonix DVT Prophylaxis: Subcu heparin Plan Continue IV fluids Encourage oral intake Continue IV and PO antibiotics Decrease oral bicarbonate ID consulation Repeat labs in AM Prognosis guarded Objective - Vital Signs Vital signs: Vital Signs Temp 97.9 F 04/15/21 12:57 Pulse 94 04/15/21 12:57 Resp 16 04/15/21 12:57 BP 136/95 04/15/21 12:57 Pulse Ox 99 04/15/21 12:57 Intake & Output 04/14/21 04/15/21 04/15/21 18:59 06:59 18:59 Intake Total 600 Balance 600 Weight 68.039 kg Intake: Oral 600 Other: Voiding Method Diaper Diaper Incontinent Incontinent # Voids 2 # Bowel Movements 2 - Labs CBC & Chem 7: 04/15/21 05:41 04/15/21 05:41 Labs: Abnormal Lab Results - Last 24 Hours (Table) 04/14/21 04/14/21 04/14/21 Range/Units 13:53 13:53 13:53 WBC 38.0 H (3.8-10.6) k/uL RBC (4.10-5.20) X 10*6/uL MCV (80.0-97.0) fL MCHC (32.0-37.0) g/dL RDW (11.5-14.5) % Immature Gran # (0.00-0.04) X 10*3/uL Neutrophils # 35.4 H (1.3-7.7) k/uL Lymphocytes # 0.5 L (1.0-4.8) k/uL Monocytes # 1.6 H (0-1.0) k/uL Eosinophils # (0.04-0.35) X 10*3/uL Sodium (135-145) mmol/L Chloride 110 H (98-107) mmol/L Carbon Dioxide 20 L (22-30) mmol/L Anion Gap (10.00-18.00) mmol/L BUN 52 H (7-17) mg/dL Creatinine 2.47 H (0.52-1.04) mg/dL Est GFR (CKD-EPI)AfAm (60.0-200.0) Est GFR (CKD-EPI)NonAf (60.0-200.0) Glucose 155 H (74-99) mg/dL Plasma Lactic Acid Antoni (0.7-2.0) mmol/L Alkaline Phosphatase 138 H (38-126) U/L Total Protein 5.9 L (6.3-8.2) g/dL Albumin 3.2 L (3.5-5.0) g/dL Albumin/Globulin Ratio (1.60-3.17) g/dL Urine Appearance Turbid H (Clear) Urine Protein 2+ H (Negative) Urine Ketones 1+ H (Negative) Urine Blood Moderate H (Negative) Ur Leukocyte Esterase Large H (Negative) Urine RBC 71 H (0-5) /hpf Urine WBC >182 H (0-5) /hpf Urine WBC Clumps Many H (None) /hpf Urine Bacteria Many H (None) /hpf Coronavirus (PCR) (Not Detectd) 04/14/21 04/14/21 04/15/21 Range/Units 13:53 13:53 05:41 WBC 29.01 H (3.8-10.6) k/uL RBC 3.90 L (4.10-5.20) X 10*6/uL MCV 102.3 H (80.0-97.0) fL MCHC 30.8 L (32.0-37.0) g/dL RDW 15.8 H (11.5-14.5) % Immature Gran # 0.58 H (0.00-0.04) X 10*3/uL Neutrophils # 25.70 H (1.3-7.7) k/uL Lymphocytes # 0.73 L (1.0-4.8) k/uL Monocytes # 1.88 H (0-1.0) k/uL Eosinophils # 0.02 L (0.04-0.35) X 10*3/uL Sodium (135-145) mmol/L Chloride (98-107) mmol/L Carbon Dioxide (22-30) mmol/L Anion Gap (10.00-18.00) mmol/L BUN (7-17) mg/dL Creatinine (0.52-1.04) mg/dL Est GFR (CKD-EPI)AfAm (60.0-200.0) Est GFR (CKD-EPI)NonAf (60.0-200.0) Glucose (74-99) mg/dL Plasma Lactic Acid Antoni 2.1 H* (0.7-2.0) mmol/L Alkaline Phosphatase (38-126) U/L Total Protein (6.3-8.2) g/dL Albumin (3.5-5.0) g/dL Albumin/Globulin Ratio (1.60-3.17) g/dL Urine Appearance (Clear) Urine Protein (Negative) Urine Ketones (Negative) Urine Blood (Negative) Ur Leukocyte Esterase (Negative) Urine RBC (0-5) /hpf Urine WBC (0-5) /hpf Urine WBC Clumps (None) /hpf Urine Bacteria (None) /hpf Coronavirus (PCR) Detected A (Not Detectd) 04/15/21 Range/Units 05:41 WBC (3.8-10.6) k/uL RBC (4.10-5.20) X 10*6/uL MCV (80.0-97.0) fL MCHC (32.0-37.0) g/dL RDW (11.5-14.5) % Immature Gran # (0.00-0.04) X 10*3/uL Neutrophils # (1.3-7.7) k/uL Lymphocytes # (1.0-4.8) k/uL Monocytes # (0-1.0) k/uL Eosinophils # (0.04-0.35) X 10*3/uL Sodium 147 H (135-145) mmol/L Chloride 111 H (98-107) mmol/L Carbon Dioxide 17.1 L (22-30) mmol/L Anion Gap 19.70 H (10.00-18.00) mmol/L BUN 42.6 H (7-17) mg/dL Creatinine 2.4 H (0.52-1.04) mg/dL Est GFR (CKD-EPI)AfAm 23.6 L (60.0-200.0) Est GFR (CKD-EPI)NonAf 20.3 L (60.0-200.0) Glucose (74-99) mg/dL Plasma Lactic Acid Antoni (0.7-2.0) mmol/L Alkaline Phosphatase (38-126) U/L Total Protein 5.4 L (6.3-8.2) g/dL Albumin 3.3 L (3.5-5.0) g/dL Albumin/Globulin Ratio 1.58 L (1.60-3.17) g/dL Urine Appearance (Clear) Urine Protein (Negative) Urine Ketones (Negative) Urine Blood (Negative) Ur Leukocyte Esterase (Negative) Urine RBC (0-5) /hpf Urine WBC (0-5) /hpf Urine WBC Clumps (None) /hpf Urine Bacteria (None) /hpf Coronavirus (PCR) (Not Detectd) Microbiology - Last 24 Hours (Table) 04/14/21 13:53 Urine Culture - Preliminary Urine,Catheterized Assessment and Plan Time with Patient: Greater than 30
[2021-04-15 16:29] LABS: Glucose,Whole Blood 129 mg/dL (75-99)
[2021-04-15] MEDS ORDERED: BARIUM SULFATE 450 ML ORAL.SUSP BOTTLE PO PRN (16:48)
[2021-04-15] MEDS: ATORVASTATIN 10 MG TAB PO SCH (16:59)
--- NOTE | 2021-04-15 17:49 | P.NPCON ---
History of Present Illness - Reason for Consult acute renal failure - History of Present Illness Patient is a 66-year-old female with history of donor renal transplant in November 2017 at [facility] with baseline creatinine around 1.5 mg/dL Patient has history of BK virus nephropathy, status post IVIG mom maintained on prednisone and restarted Prograf in the fall of 2020. Patient also has underlying history of gastroesophageal reflux disease and rheumatoid arthritis. She currently resides at an extended care facility and was admitted to the hospital for altered mentation. Workup revealed positive COVID-19 PCR At this time patient is not able to give a detailed history. She is confused. Patient has had diarrhea according to chart review. Blood pressure is not low in fact it's on the higher side. Patient is currently on room air with O2 sats 98-99%. Serum creatinine was 2.47 mg/dL on initial admission to date is at 2.4. Patient was maintained on IV fluids overnight. She has been incontinent. UA she is suggestive of urinary tract infection. No fever noted. Chest x-ray was unremarkable Review of Systems As per HPI Past Medical History Past Medical History: Asthma, Cancer, GERD/Reflux, Hypertension, Musculoskeletal Disorder, Renal Disease Additional Past Medical History / Comment(s): GOUT, HEART MURMUR, BACK PAIN- SPINAL STENOSIS WITH SPURS AND PROLAPSED DISCS-SHE HAS 2 SPINAL CORD STIMULATORS ANNEMARIE LOWER BACK. STAGE 5 KIDNEY FAILURE. ANAL CANCER. KIDNEY TRANSPLANT AV f istula left arm History of Any Multi-Drug Resistant Organisms: None Reported Past Surgical History: Adenoidectomy, Appendectomy, Cholecystectomy, Joint Replacement, Tonsillectomy, Uterine Ablation Additional Past Surgical History / Comment(s): RT CATARACT, EAR SURGERY, SPINAL CORD STIMULATORS. REPLACEMENTS OF LT SHOULDER, LT HIP & ANNEMARIE KNEES. KIDNEY TRANSPLANT. Past Anesthesia/Blood Transfusion Reactions: No Reported Reaction Additional Past Anesthesia/Blood Transfusion Reaction / Comment(s): HX OF SEVERAL BLOOD TRANSFUSIONS, NO REACTIONS. Past Psychological History: No Psychological Hx Reported Smoking Status: Former smoker Past Alcohol Use History: None Reported Additional Past Alcohol Use History / Comment(s): SMOKED OFF AND ON. QUIT 2005. Past Drug Use History: None Reported - Past Family History Father Family Medical History: Cancer Medications and Allergies Home Medications Medication Instructions Recorded Confirmed Type buPROPion [Wellbutrin] 100 mg PO DAILY@0700 04/01/14 04/14/21 History predniSONE 5 mg PO DAILY@0700 04/01/14 04/14/21 History traZODone HCL [Desyrel] 100 mg PO HS 04/01/14 04/14/21 History Cinacalcet HCl [Sensipar] 30 mg PO DAILY@0700 08/09/19 04/14/21 History Tacrolimus [Prograf] 7 mg PO BID #60 cap 08/13/19 04/14/21 Rx Acetaminophen Tab [Tylenol] 650 mg PO Q6H 04/14/21 04/14/21 History Aspirin EC [Ecotrin Low Dose] 81 mg PO DAILY@0700 04/14/21 04/14/21 History Atorvastatin Calcium [Lipitor] 10 mg PO DAILY@1700 04/14/21 04/14/21 History Cetirizine HCl [Zyrtec] 10 mg PO DAILY@0700 04/14/21 04/14/21 History Cholecalciferol [Vitamin D3 (25 25 mcg PO DAILY@0704/14/21 04/14/21 History Mcg = 1000 Iu)] INSULIN LISPRO (HumaLOG) [humaLOG] See Protocol SQ ACHS 04/14/21 04/14/21 History Insulin Glargine,Hum.rec.anlog 20 unit SQ DAILY@0800 04/14/21 04/14/21 History [Lantus Solostar Pen] Magnesium Hydroxide [Milk of 7,200 mg PO Q24H PRN 04/14/21 04/14/21 History Magnesia Concentrate] Magnesium Oxide 400 mg PO BID@0700,2100 04/14/21 04/14/21 History Med Plus 90 ml PO TID@0900,1400,2100 04/14/21 04/14/21 History Megestrol Acetate [Megace] 200 mg PO DAILY@0800 04/14/21 04/14/21 History Omeprazole [PriLOSEC] 20 mg PO DAILY@0700 04/14/21 04/14/21 History Ondansetron [Zofran ODT] 4 mg PO Q6H PRN 04/14/21 04/14/21 History Sodium Bicarbonate Tab 650 mg PO TID@0700,1300,2100 04/14/21 04/14/21 History guaiFENesin [Diabetic Tussin Ex] 200 mg PO Q4H PRN 04/14/21 04/14/21 History Allergies Allergy/AdvReac Type Severity Reaction Status Date / Time adhesive Allergy Unknown Rash/Hives Verified 04/14/21 14:43 povidone-iodine Allergy Unknown Rash/Hives Verified 04/14/21 14:43 [From Betadine] soap [From Betadine] Allergy Unknown Rash/Hives Verified 04/14/21 14:43 tolmetin Allergy Unknown Verified 04/14/21 14:43 Beta-Blockers AdvReac Unknown UNABLE TO Verified 04/14/21 14:43 (Beta-Adrenergic Bloc TAKE DUE TO ASTHMA NSAIDS (Non-Steroidal AdvReac Unknown UNABLE TO Verified 04/14/21 14:43 Anti-Inflamma TAKE DUE TO KIDNEY FAILURE Physical Exam Vitals: Vital Signs Temp Pulse Pulse Resp BP BP Pulse Ox 04/15/21 14:53 97.8 F 100 18 187/80 98 04/15/21 12:57 97.9 F 94 16 136/95 99 04/15/21 04:07 98.3 F 98 18 163/78 98 04/15/21 01:00 20 04/14/21 18:20 98.8 F 100 20 182/91 99 Intake and Output 04/15/21 04/15/21 04/15/21 06:59 14:59 22:59 Intake Total 600 50 Balance 600 50 Intake: Intake, IV Titration 50 Amount cefTRIAXone 2 gm In 50 Sodium Chloride 0.9% 50 ml @ 100 mls/hr IVPB Q24HR [facility] Rx#:[id number] Oral 600 Other: Voiding Method Diaper Diaper Incontinent Incontinent # Voids 2 # Bowel Movements 2 Weight 68.039 kg Patient is sleeping but arousable. She is confused and unable to give a history Examination of the heart S1 and S2 Examination lungs bilateral breath sounds are heard Abdomen is soft nontender Examination lower extremities shows significant edema. EDITOR SOUND exam shows patient is moving all 4 extremities she does not communicate much. Results - Lab Results Most recent lab results Calcium 8.9 mg/dL (8.7-10.3) 04/15/21 05:41 04/15/21 05:41 04/15/21 05:41 Assessment and Plan Assessment: 1. Acute kidney injury, most likely ATN. Urine output not charted. Continue with IV fluids. Etiology likely underlying infection. No evidence of hypotension. Rule out obstruction. 2. Status post donor renal allograft in 2018 at [facility] baseline creatinine initially around 1.2 most recently creatinine was 1.6-1.7 in number of 2020 patient had nausea vomiting and diarrhea at that time and poss ible underlying acute kidney injury. 3. History of BK virus nephropathy currently back on prednisone and Prograf. Patient had been receiving IVIG 4. Pyuria highly suggestive of underlying urinary tract infection 5. Mental status changes most likely associated with underlying infection. Check Prograf levels 6. Rheumatoid arthritis, currently not on any treatment 7. CK D mineral bone disorder maintained on Sensipar 8. Metabolic acidosis associated with associated with diarrhea as well as u nderlying RTA associated with calcineurin inhibitors maintained on oral sodium bicarb, Plan: Continue IV fluids Check Prograf level Check bladder scan and rule out urine retention Change IV fluids to IV bicarb Repeat labs in a.m.
[2021-04-15] MEDS: DEXTROSE 5% IN WATER 1,000 ML with SODIUM BICARB (1 MEQ/ML) 100 ML IV SCH (18:25)
[2021-04-15] MEDS: predniSONE 5 MG TAB PO SCH (18:25)
--- NOTE | 2021-04-15 20:32 | US ---
EXAMINATION TYPE: US renal transplant w dop DATE OF EXAM: 04/15/2021 COMPARISON: NONE CLINICAL HISTORY: kidney transplant USS, K[facility]. Hx renal transplant EXAM PERFORMED: Grayscale on knik kidneys and Doppler duplex and Grayscale imaging of the transplan enriqueta kidney. EXAM MEASUREMENTS: [place] Right Kidney: 9.2 x 5.2 x 4.1 cm [place] Left Kidney: 8.2 x 4.8 x 3.7 cm Transplant Kidney: 9.2 x 5.0 x 5.2 cm Location of transplanted kidney: RLQ ANATOMY: [place] Right Kidney: Anechoic foci seen; largest 1.9 x 1.3 x 1.6 cm and compatible with cysts. [place] Left Kidney: Atrophic Transplant Kidney: Appears wnl Bladder: Bladder debris; pre void volume of 518 ml Bilateral Jets seen: no IMPRESSION: Urinary bladder debris. Otherwise no acute sonographic abnormality. Right transplant kidney.
--- NOTE | 2021-04-15 22:59 | CT ---
EXAMINATION TYPE: CT abdomen pelvis wo con DATE OF EXAM: 04/15/2021 COMPARISON: 08/09/2019 HISTORY: abd pain CT DLP: 792.4 mGycm Automated exposure control for dose reduction was used. There is some mild atelectasis at the lung bases. Heart size is fairly normal. There is no pericardia l effusion. There is no pleural effusion. Liver is intact. Spleen is intact. There is no pancreatic mass. There are multiple small pancreatic c alcifications in the pancreatic head. Stomach is intact. The bile ducts are not dilated. There are cl ips from cholecystectomy. There is advanced atrophy of the kidneys. There is right-sided pelvic trans plant kidney without hydronephrosis. Bladder distends smoothly. There is left hip prosthesis. There i s no free fluid in the pelvis. There is some presacral edema. This measures up to 1 cm in thickness. There is no ascites. There is no evidence of a bowel obstruction. There is no mesenteric edema. There is no retroperitoneal adenopathy. There are bilateral device implanted over the posterior lower lumb ar spine. There are spondylotic changes in the lumbar spine with mild compression deformity and vacuum disc fro m L2 to L5. There is intact proximal right femur. The bony pelvis appears intact. There is atheroscle rotic vascular calcification. IMPRESSION: Mild subsegmental atelectasis at the lung bases appears new compared to the old exam. There are pancr eatic head small calcifications and could relate to chronic pancreatitis. There is some mild presacral edema which is new compared to the old exam.
[2021-04-15] MEDS: NIFEdipine XL 30 MG TAB.ER.24 PO SCH (23:25)
[2021-04-15 23:27] LABS: Glucose,Whole Blood 136 mg/dL (75-99)
[2021-04-16] MEDS: ACETAMINOPHEN TAB 325 MG TAB PO SCH ×3 (03:30→16:58)
[2021-04-16 06:44] LABS: Glucose,Whole Blood 197 mg/dL (75-99)
[2021-04-16] MEDS: DEXTROSE 5% IN WATER 1,000 ML with SODIUM BICARB (1 MEQ/ML) 100 ML IV SCH ×2 (07:57→21:51)
[2021-04-16] MEDS: HEPARIN SODIUM,PORCINE/PF 5,000 UNIT/0.5 ML SYRINGE SQ SCH ×2 (07:58→16:57)
[2021-04-16] MEDS: INSULIN DETEMIR (LEVEMIR) 100 UNIT/ML SYR SQ SCH (07:58)
[2021-04-16] MEDS: PANTOPRAZOLE 40 MG/10 ML VIAL IVP SCH (07:58)
[2021-04-16] MEDS: INSULIN ASPART (NovoLOG) 100 UNIT/ML VIAL SQ SCH ×4 (07:58→21:49)
[2021-04-16] MEDS: predniSONE 5 MG TAB PO SCH (07:59)
[2021-04-16] MEDS: metroNIDAZOLE 500 MG TAB PO SCH ×3 (07:59→21:49)
[2021-04-16] MEDS: MAGNESIUM OXIDE 400 MG TAB PO SCH ×2 (07:59→21:49)
[2021-04-16] MEDS: SODIUM BICARBONATE TAB 650 MG TAB PO SCH ×2 (07:59→21:49)
[2021-04-16] MEDS: CINACALCET 30 MG TAB PO SCH (07:59)
[2021-04-16] MEDS: CHOLECALCIFEROL 25 MCG (1000 IU) TABLET PO SCH (07:59)
[2021-04-16] MEDS: TACROLIMUS 1 MG CAP PO SCH ×2 (07:59→21:49)
[2021-04-16] MEDS: MEGESTROL 400 MG/10 ML CUP PO SCH (07:59)
[2021-04-16] MEDS: buPROPion 100 MG TAB PO SCH (07:59)
[2021-04-16] MEDS: NIFEdipine XL 30 MG TAB.ER.24 PO SCH (07:59)
[2021-04-16] MEDS: ASPIRIN 81 MG PO SCH (07:59)
[2021-04-16 09:29] LABS: Basophils # (A) 0.09 X 10*3/uL (0.00-0.10); Basophils % (A) 0.5 %; Eosinophils # (A) 0.02 X 10*3/uL (0.04-0.35); Eosinophils % (A) 0.1 %; HCT 37.9 % (37.2-46.3); HGB 11.9 g/dL (12.0-15.0); Lymphocytes # (A) 0.72 X 10*3/uL (0.90-5.00); Lymphocytes % (A) 3.6 %; MCH 32.3 pg (27.0-32.0); MCHC 31.4 g/dL (32.0-37.0); Mean Platelet Volume 12.1 fL (9.5-12.2); Monocytes # (A) 1.51 X 10*3/uL (0.20-1.00); Monocytes % (A) 7.6 %; NRBC Per 100 WBC 0 /100 WBCS (0.0-0.0); Neutrophils # (A) 16.96 X 10*3/uL (1.80-7.70); Neutrophils % (A) 85.2 %; Platelet Count 216 X 10*3/uL (140-440); RBC 3.68 X 10*6/uL (4.10-5.20); RDW 15.3 % (11.5-14.5)
[2021-04-16 11:03] LABS: Magnesium 2.3 mg/dL (1.5-2.4)
[2021-04-16 11:05] LABS: African American GFR (CKD) 32.1 (60.0-200.0); Anion Gap 19.3 mmol/L (10.00-18.00); BUN/Creat Ratio 17.29 Ratio (12.00-20.00); Blood Urea Nitrogen 32.5 mg/dL (9.0-27.0); Calcium 8.1 mg/dL (8.7-10.3); Non-African American GFR(CKD) 27.7 (60.0-200.0); Potassium 3.8 mmol/L (3.5-5.5)
[2021-04-16 11:19] LABS: Glucose,Whole Blood 225 mg/dL (75-99)
--- NOTE | 2021-04-16 11:38 | P.PN ---
Subjective Progress Note Date: 04/16/21 This is a pleasant 66-year-old female who presents to Hospital with altered mental status as well as acute UTI and acute Covid infection. Patient is currently alert and oriented 1-2 she knows she is in the hospital unable to tell the year. She is a poor historian. She denies any pain however during exa mination there is suprapubic tenderness noted with palpation. She continues IV Rocephin, urine cultures currently pending. Patient was found to be covid positive, however she is on room air, there is no cough or shortness of breath noted. She is afebrile. Labs today show white count 29.01, sodium 147, potassium 4.2, chloride 111, CO2 17.1, BUN 42.6, creatinine 2.4, blood glucose 90, lactic acid improved to 1.7, alk phos normalized at 117, total protein 5.4. 04/16/2021 Patient evaluated today resting in bed. Confused, Alert x 1. Patient denies any pain, shortness of breath, cough. Patient is being followed by nephrology and ID services. Renal ultrasound shows urinary bladder debris otherwise no acute abnormalities, [place] right and left kidney visualized as well as transplant kidney in right lower quadrant. Abd/Pelvis CT shows mild subsegmental atelectasis at the lung bases appears new compared to old exam, there are pancreatic head small calcifications and can relate to chronic pancreatitis. There is some mild presacral edema which is new compared to the old exam. Labs today show white count 19.90, hemoglobin 11.9, sodium 145, potassium 3.8, BUN 32.5, creatinine 1.9. Blood glucose in the 200s. Urine culture and blood culture negative so far, stool culture pending. Continues on IV Rocephin, Flagyl as well as bicarb drip. Vitals stable. ROS Constitutional: Reports fatigue denied any fever. Cardio vascular: denied any chest pain, palpitations Gastrointestinal denied any nausea vomiting Pulmonary: Denied any shortness of breath cough Neurologic denied any new focal deficits All inpatient medications were reviewed and appropriate changes in these medications as dictated in the interval history and assessment and plan. PHYSICAL EXAMINATION: GENERAL: The patient is alert and oriented x1, not in any acute distress. Well developed, well nourished. HEENT: Pupils are round and equally reacting to light. EOMI. No scleral icterus. No conjunctival pallor. Normocephalic, atraumatic. No pharyngeal erythema. No thyromegaly. CARDIOVASCULAR: S1 and S2 present. No murmurs, rubs, or gallops. PULMONARY: Chest is clear to auscultation, no wheezing or crackles. ABDOMEN: Soft, nontender, nondistended, normoactive bowel sounds. No palpable organomegaly. MUSCULOSKELETAL: No joint swelling or deformity. EXTREMITIES: No cyanosis, clubbing, or pedal edema. NEUROLOGICAL: Gross neurological examination did not reveal any focal deficits. SKIN: No rashes. Assessment and plan Assessment Acute UTI with sepsis, present on admission, urine culture negative, continues on IV rocephin Altered mental status secondary to toxic and metabolic encephalopathy multifactorial with components of infection Acute kidney injury secondary to severe dehydration Anion gap Metabolic Acidosis, patient continues with diarrhea, stool cultures pending, on oral sodium bicarb Acute COVID infection with out evidence for pneumonia, on room air Diarrhea, cdif negative possibly due to COVID infection, on oral flagyl hypernatremia, improved 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 History of kidney transplant GERD GI Prophylaxis: Protonix DVT Prophylaxis: Subcu heparin Plan Continue IV fluids Encourage oral intake Continue IV and PO antibiotics Pending finalized cultures ID, Nephro consultation Repeat labs in AM Prognosis guarded Objective - Vital Signs Vital signs: Vital Signs Temp 98.7 F 04/16/21 10:11 Pulse 87 04/16/21 10:11 Resp 17 04/16/21 10:11 BP 123/80 04/16/21 10:11 Pulse Ox 97 04/16/21 10:11 Intake & Output 04/15/21 04/16/21 04/16/21 18:59 06:59 18:59 Intake Total 50 640 Output Total 521 1050 Balance -471 -1050 640 Weight 68.039 kg Intake: Intake, IV Titration 50 640 Amount Dextrose 5% in Water 1, 640 000 ml @ 80 mls/hr IV . [id number] NERY with Sodium Bicarb (1 Meq/ml) 100 ml Rx#:[id number] cefTRIAXone 2 gm In 50 Sodium Chloride 0.9% 50 ml @ 100 mls/hr IVPB Q24HR [facility] Rx#:[id number] Output: Urine 521 1050 Straight 550 Other: Voiding Method Diaper Diaper Incontinent Incontinent # Voids 2 # Bowel Movements 2 3 - Labs CBC & Chem 7: 04/16/21 06:19 04/16/21 06:19 Labs: Abnormal Lab Results - Last 24 Hours (Table) 04/15/21 04/15/21 04/15/21 Range/Units 05:41 16:27 23:24 WBC (4.50-10.00) X 10*3/uL RBC (4.10-5.20) X 10*6/uL Hgb (12.0-15.0) g/dL MCV (80.0-97.0) fL MCH (27.0-32.0) pg MCHC (32.0-37.0) g/dL RDW (11.5-14.5) % Immature Gran # (0.00-0.04) X 10*3/uL Neutrophils # (1.80-7.70) X 10*3/uL Lymphocytes # (0.90-5.00) X 10*3/uL Monocytes # (0.20-1.00) X 10*3/uL Eosinophils # (0.04-0.35) X 10*3/uL Sodium 147 H (135-145) mmol/L Chloride 111 H (96-109) mmol/L Carbon Dioxide 17.1 L (20.0-27.5) mmol/L Anion Gap 19.70 H (10.00-18.00) mmol/L BUN 42.6 H (9.0-27.0) mg/dL Creatinine 2.4 H (0.6-1.5) mg/dL Est GFR (CKD-EPI)AfAm 23.6 L (60.0-200.0) Est GFR (CKD-EPI)NonAf 20.3 L (60.0-200.0) Glucose (70-110) mg/dL POC Glucose (mg/dL) 129 H 136 H (75-99) mg/dL Calcium (8.7-10.3) mg/dL Total Protein 5.4 L (6.2-8.2) g/dL Albumin 3.3 L (3.8-4.9) g/dL Albumin/Globulin Ratio 1.58 L (1.60-3.17) g/dL 04/16/21 04/16/21 04/16/21 Range/Units 06:19 06:19 06:43 WBC 19.90 H (4.50-10.00) X 10*3/uL RBC 3.68 L (4.10-5.20) X 10*6/uL Hgb 11.9 L (12.0-15.0) g/dL MCV 103.0 H (80.0-97.0) fL MCH 32.3 H (27.0-32.0) pg MCHC 31.4 L (32.0-37.0) g/dL RDW 15.3 H (11.5-14.5) % Immature Gran # 0.60 H (0.00-0.04) X 10*3/uL Neutrophils # 16.96 H (1.80-7.70) X 10*3/uL Lymphocytes # 0.72 L (0.90-5.00) X 10*3/uL Monocytes # 1.51 H (0.20-1.00) X 10*3/uL Eosinophils # 0.02 L (0.04-0.35) X 10*3/uL Sodium (135-145) mmol/L Chloride (96-109) mmol/L Carbon Dioxide 18.0 L (20.0-27.5) mmol/L Anion Gap 19.30 H (10.00-18.00) mmol/L BUN 32.5 H (9.0-27.0) mg/dL Creatinine 1.9 H (0.6-1.5) mg/dL Est GFR (CKD-EPI)AfAm 32.1 L (60.0-200.0) Est GFR (CKD-EPI)NonAf 27.7 L (60.0-200.0) Glucose 198 H (70-110) mg/dL POC Glucose (mg/dL) 197 H (75-99) mg/dL Calcium 8.1 L (8.7-10.3) mg/dL Total Protein (6.2-8.2) g/dL Albumin (3.8-4.9) g/dL Albumin/Globulin Ratio (1.60-3.17) g/dL 04/16/21 Range/Units 11:18 WBC (4.50-10.00) X 10*3/uL RBC (4.10-5.20) X 10*6/uL Hgb (12.0-15.0) g/dL MCV (80.0-97.0) fL MCH (27.0-32.0) pg MCHC (32.0-37.0) g/dL RDW (11.5-14.5) % Immature Gran # (0.00-0.04) X 10*3/uL Neutrophils # (1.80-7.70) X 10*3/uL Lymphocytes # (0.90-5.00) X 10*3/uL Monocytes # (0.20-1.00) X 10*3/uL Eosinophils # (0.04-0.35) X 10*3/uL Sodium (135-145) mmol/L Chloride (96-109) mmol/L Carbon Dioxide (20.0-27.5) mmol/L Anion Gap (10.00-18.00) mmol/L BUN (9.0-27.0) mg/dL Creatinine (0.6-1.5) mg/dL Est GFR (CKD-EPI)AfAm (60.0-200.0) Est GFR (CKD-EPI)NonAf (60.0-200.0) Glucose (70-110) mg/dL POC Glucose (mg/dL) 225 H (75-99) mg/dL Calcium (8.7-10.3) mg/dL Total Protein (6.2-8.2) g/dL Albumin (3.8-4.9) g/dL Albumin/Globulin Ratio (1.60-3.17) g/dL Microbiology - Last 24 Hours (Table) 04/16/21 04:00 Stool Culture - Preliminary Stool 04/14/21 13:53 Urine Culture - Final Urine,Catheterized 04/14/21 15:10 Blood Culture - Preliminary Blood No Growth after 24 hours 04/14/21 15:05 Blood Culture - Preliminary Blood No Growth after 24 hours
[2021-04-16] MEDS: ATORVASTATIN 10 MG TAB PO SCH (15:06)
[2021-04-16 16:31] LABS: Glucose,Whole Blood 174 mg/dL (75-99)
--- NOTE | 2021-04-16 19:57 | P.PN ---
Subjective Patient is seen for follow-up for acute kidney injury Patient is a 66-year-old female with history of donor renal transplant in November 2017 at [facility] with a baseline creatinine of around 1.5 mg/dL. She has a history of BK virus nephropathy, status post IVIG in in the fall of last year. Patient is currently back on Prograf. She is also maintained on prednisone. Patient was admitted to the hospital with mental status changes. Her COVID-19 PCR test was positive. She has recently been residing [facility] an [facility]. There is history of diarrhea. No evidence of hypotension. Serum creatinine was 2.47 on admission and currently decreased to 1.9. Patient remains confused. This morning she stated that she was having a baby. Objective - Vital Signs Vital signs: Vital Signs Temp 97.8 F 04/16/21 18:01 Pulse 66 04/16/21 18:01 Resp 17 04/16/21 18:01 BP 124/65 04/16/21 18:01 Pulse Ox 96 04/16/21 18:01 Intake & Output 04/16/21 04/16/21 04/17/21 06:59 18:59 06:59 Intake Total 640 Output Total 1050 500 Balance -1050 140 Intake: Intake, IV Titration 640 Amount Dextrose 5% in Water 1, 640 000 ml @ 80 mls/hr IV . [id number] N[facility] with Sodium Bicarb (1 Meq/ml) 100 ml Rx#:[id number] Output: Urine 1050 500 Straight 550 500 Other: Voiding Method Diaper Incontinent # Voids 2 # Bowel Movements 3 - Exam Patient is awake comfortable. She is pleasantly confused [place] at Examination of the heart S1 and S2 Examination lungs bilateral breath sounds are heard Abdomen is soft nontender Examination of lower extremities shows no evidence of edema PALEOLOGIST exam shows patient is moving all 4 extremities. She is confused. - Labs CBC & Chem 7: 04/16/21 06:19 04/16/21 06:19 Labs: Abnormal Lab Results - Last 24 Hours (Table) 04/15/21 04/16/21 04/16/21 Range/Units 23:24 06:19 06:19 WBC 19.90 H (4.50-10.00) X 10*3/uL RBC 3.68 L (4.10-5.20) X 10*6/uL Hgb 11.9 L (12.0-15.0) g/dL MCV 103.0 H (80.0-97.0) fL MCH 32.3 H (27.0-32.0) pg MCHC 31.4 L (32.0-37.0) g/dL RDW 15.3 H (11.5-14.5) % Immature Gran # 0.60 H (0.00-0.04) X 10*3/uL Neutrophils # 16.96 H (1.80-7.70) X 10*3/uL Lymphocytes # 0.72 L (0.90-5.00) X 10*3/uL Monocytes # 1.51 H (0.20-1.00) X 10*3/uL Eosinophils # 0.02 L (0.04-0.35) X 10*3/uL Carbon Dioxide 18.0 L (20.0-27.5) mmol/L Anion Gap 19.30 H (10.00-18.00) mmol/L BUN 32.5 H (9.0-27.0) mg/dL Creatinine 1.9 H (0.6-1.5) mg/dL Est GFR (CKD-EPI)AfAm 32.1 L (60.0-200.0) Est GFR (CKD-EPI)NonAf 27.7 L (60.0-200.0) Glucose 198 H (70-110) mg/dL POC Glucose (mg/dL) 136 H (75-99) mg/dL Calcium 8.1 L (8.7-10.3) mg/dL 04/16/21 04/16/21 04/16/21 Range/Units 06:43 11:18 16:29 WBC (4.50-10.00) X 10*3/uL RBC (4.10-5.20) X 10*6/uL Hgb (12.0-15.0) g/dL MCV (80.0-97.0) fL MCH (27.0-32.0) pg MCHC (32.0-37.0) g/dL RDW (11.5-14.5) % Immature Gran # (0.00-0.04) X 10*3/uL Neutrophils # (1.80-7.70) X 10*3/uL Lymphocytes # (0.90-5.00) X 10*3/uL Monocytes # (0.20-1.00) X 10*3/uL Eosinophils # (0.04-0.35) X 10*3/uL Carbon Dioxide (20.0-27.5) mmol/L Anion Gap (10.00-18.00) mmol/L BUN (9.0-27.0) mg/dL Creatinine (0.6-1.5) mg/dL Est GFR (CKD-EPI)AfAm (60.0-200.0) Est GFR (CKD-EPI)NonAf (60.0-200.0) Glucose (70-110) mg/dL POC Glucose (mg/dL) 197 H 225 H 174 H (75-99) mg/dL Calcium (8.7-10.3) mg/dL Microbiology - Last 24 Hours (Table) 04/14/21 15:10 Blood Culture - Preliminary Blood No Growth after 48 hours 04/14/21 15:05 Blood Culture - Preliminary Blood No Growth after 48 hours 04/16/21 04:00 Stool Culture - Preliminary Stool 04/14/21 13:53 Urine Culture - Final Urine,Catheterized Assessment and Plan Assessment: 1. Acute kidney injury, most likely ATN and volume depletion. Urine output not charted. Continue with IV fluids. Etiology likely underlying infection. No evidence of hypotension. No obstruction noted on ultrasound. UA is suggestive of UTI 2. Status post donor renal allograft in 2018 at [facility] baseline creatinine initially around 1.2 most recently creatinine was 1.6-1.7 in number of 2020 patient had nausea vomiting and diarrhea at that time and possible underlying acute kidney injury. 3. History of BK virus nephropathy currently back on prednisone and Prograf. Patient had been receiving IVIG 4. Pyuria highly suggestive of underlying urinary tract infection 5. Mental status changes most likely associated with underlying infection. Check Prograf levels 6. Rheumatoid arthritis, currently not on any treatment 7. CK D mineral bone disorder maintained on Sensipar 8. Metabolic acidosis associated with associated with diarrhea as well as underlying RTA associated with calcineurin inhibitors maintained on oral sodium bicarb, Plan: Continue IV bicarb Follow up on Prograf level Repeat labs in a.m. Follow-up on urine cultures
[2021-04-16 21:49] LABS: Glucose,Whole Blood 95 mg/dL (75-99)
[2021-04-17] MEDS: ACETAMINOPHEN TAB 325 MG TAB PO SCH ×4 (00:22→17:15)
[2021-04-17] MEDS: HEPARIN SODIUM,PORCINE/PF 5,000 UNIT/0.5 ML SYRINGE SQ SCH ×3 (00:23→22:40)
[2021-04-17 07:48] LABS: Glucose,Whole Blood 108 mg/dL (75-99)
[2021-04-17] MEDS: INSULIN ASPART (NovoLOG) 100 UNIT/ML VIAL SQ SCH ×4 (08:06→21:47)
[2021-04-17] MEDS: PANTOPRAZOLE 40 MG/10 ML VIAL IVP SCH (08:31)
--- NOTE | 2021-04-17 10:03 | P.PN ---
Subjective Progress Note Date: 04/15/21 Principal diagnosis: Urinary tract infection and a positive covid test Patient is a 66-year-old female presenting to the hospital for mental status changes this patient also having some diarrhea patient did have a positive UA concerning for asymptomatic urinary tract infection. On today's evaluation that is 04/15/2021, the patient is slightly more awake and alert today she is breathing comfortably has been complaining of abdominal pain, still having some diarrhea at the nursing staff denies any chest pain shortness of breath or cough Objective - Vital Signs Vital signs: Vital Signs Temp 97.9 F 04/15/21 12:57 Pulse 94 04/15/21 12:57 Resp 16 04/15/21 12:57 BP 136/95 04/15/21 12:57 Pulse Ox 99 04/15/21 12:57 Intake & Output 04/14/21 04/15/21 04/15/21 18:59 06:59 18:59 Intake Total 600 Balance 600 Weight 68.039 kg Intake: Oral 600 Other: Voiding Method Diaper Diaper Incontinent Incontinent # Voids 2 # Bowel Movements 2 - Exam GENERAL DESCRIPTION: Middle-aged female lying in bed in no distress RESPIRATORY SYSTEM: Unlabored breathing , decreased breath sounds at bases HEART: S1 S2 regular rate and rhythm , ABDOMEN: Soft , left lower quadrant tenderness EXTREMITIES: No edema feet - Labs CBC & Chem 7: 04/17/21 07:03 04/17/21 07:03 Labs: Abnormal Lab Results - Last 24 Hours (Table) 04/14/21 04/14/21 04/14/21 Range/Units 13:53 13:53 13:53 WBC 38.0 H (3.8-10.6) k/uL RBC (4.10-5.20) X 10*6/uL MCV (80.0-97.0) fL MCHC (32.0-37.0) g/dL RDW (11.5-14.5) % Immature Gran # (0.00-0.04) X 10*3/uL Neutrophils # 35.4 H (1.3-7.7) k/uL Lymphocytes # 0.5 L (1.0-4.8) k/uL Monocytes # 1.6 H (0-1.0) k/uL Eosinophils # (0.04-0.35) X 10*3/uL Sodium (135-145) mmol/L Chloride 110 H (98-107) mmol/L Carbon Dioxide 20 L (22-30) mmol/L Anion Gap (10.00-18.00) mmol/L BUN 52 H (7-17) mg/dL Creatinine 2.47 H (0.52-1.04) mg/dL Est GFR (CKD-EPI)AfAm (60.0-200.0) Est GFR (CKD-EPI)NonAf (60.0-200.0) Glucose 155 H (74-99) mg/dL Plasma Lactic Acid Antoni (0.7-2.0) mmol/L Alkaline Phosphatase 138 H (38-126) U/L Total Protein 5.9 L (6.3-8.2) g/dL Albumin 3.2 L (3.5-5.0) g/dL Albumin/Globulin Ratio (1.60-3.17) g/dL Urine Appearance Turbid H (Clear) Urine Protein 2+ H (Negative) Urine Ketones 1+ H (Negative) Urine Blood Moderate H (Negative) Ur Leukocyte Esterase Large H (Negative) Urine RBC 71 H (0-5) /hpf Urine WBC >182 H (0-5) /hpf Urine WBC Clumps Many H (None) /hpf Urine Bacteria Many H (None) /hpf Coronavirus (PCR) (Not Detectd) 04/14/21 04/14/21 04/15/21 Range/Units 13:53 13:53 05:41 WBC 29.01 H (3.8-10.6) k/uL RBC 3.90 L (4.10-5.20) X 10*6/uL MCV 102.3 H (80.0-97.0) fL MCHC 30.8 L (32.0-37.0) g/dL RDW 15.8 H (11.5-14.5) % Immature Gran # 0.58 H (0.00-0.04) X 10*3/uL Neutrophils # 25.70 H (1.3-7.7) k/uL Lymphocytes # 0.73 L (1.0-4.8) k/uL Monocytes # 1.88 H (0-1.0) k/uL Eosinophils # 0.02 L (0.04-0.35) X 10*3/uL Sodium (135-145) mmol/L Chloride (98-107) mmol/L Carbon Dioxide (22-30) mmol/L Anion Gap (10.00-18.00) mmol/L BUN (7-17) mg/dL Creatinine (0.52-1.04) mg/dL Est GFR (CKD-EPI)AfAm (60.0-200.0) Est GFR (CKD-EPI)NonAf (60.0-200.0) Glucose (74-99) mg/dL Plasma Lactic Acid Antoni 2.1 H* (0.7-2.0) mmol/L Alkaline Phosphatase (38-126) U/L Total Protein (6.3-8.2) g/dL Albumin (3.5-5.0) g/dL Albumin/Globulin Ratio (1.60-3.17) g/dL Urine Appearance (Clear) Urine Protein (Negative) Urine Ketones (Negative) Urine Blood (Negative) Ur Leukocyte Esterase (Negative) Urine RBC (0-5) /hpf Urine WBC (0-5) /hpf Urine WBC Clumps (None) /hpf Urine Bacteria (None) /hpf Coronavirus (PCR) Detected A (Not Detectd) 04/15/21 Range/Units 05:41 WBC (3.8-10.6) k/uL RBC (4.10-5.20) X 10*6/uL MCV (80.0-97.0) fL MCHC (32.0-37.0) g/dL RDW (11.5-14.5) % Immature Gran # (0.00-0.04) X 10*3/uL Neutrophils # (1.3-7.7) k/uL Lymphocytes # (1.0-4.8) k/uL Monocytes # (0-1.0) k/uL Eosinophils # (0.04-0.35) X 10*3/uL Sodium 147 H (135-145) mmol/L Chloride 111 H (98-107) mmol/L Carbon Dioxide 17.1 L (22-30) mmol/L Anion Gap 19.70 H (10.00-18.00) mmol/L BUN 42.6 H (7-17) mg/dL Creatinine 2.4 H (0.52-1.04) mg/dL Est GFR (CKD-EPI)AfAm 23.6 L (60.0-200.0) Est GFR (CKD-EPI)NonAf 20.3 L (60.0-200.0) Glucose (74-99) mg/dL Plasma Lactic Acid Antoni (0.7-2.0) mmol/L Alkaline Phosphatase (38-126) U/L Total Protein 5.4 L (6.3-8.2) g/dL Albumin 3.3 L (3.5-5.0) g/dL Albumin/Globulin Ratio 1.58 L (1.60-3.17) g/dL Urine Appearance (Clear) Urine Protein (Negative) Urine Ketones (Negative) Urine Blood (Negative) Ur Leukocyte Esterase (Negative) Urine RBC (0-5) /hpf Urine WBC (0-5) /hpf Urine WBC Clumps (None) /hpf Urine Bacteria (None) /hpf Coronavirus (PCR) (Not Detectd) Microbiology - Last 24 Hours (Table) 04/14/21 13:53 Urine Culture - Preliminary Urine,Catheterized Assessment and Plan (1) Leukocytosis Current Visit: Yes Status: Acute Code(s): D72.829 - ELEVATED WHITE BLOOD CELL COUNT, UNSPECIFIED SNOMED Code(s): 145081122 (2) Urinary tract infection Current Visit: Yes Status: Acute Code(s): N39.0 - URINARY TRACT INFECTION, SITE NOT SPECIFIED SNOMED Code(s): 76678554 Plan: Patient presented to the hospital mental status changes likely multifactorial in this patient did have a symptomatic urinary tract infection however the patient is tender in the left lower quadrant area is still have elevated white count we will go ahead and obtain CT of abdominal pelvis with oral contrast continue with Rocephin and Flagyl and will and chest antibiotics for about on the basis of cultures and results Time with Patient: Less than 30
[2021-04-17 10:04] LABS: African American GFR (CKD) 39.1 (60.0-200.0); Anion Gap 10.6 mmol/L (10.00-18.00); BUN/Creat Ratio 15.75 Ratio (12.00-20.00); Blood Urea Nitrogen 25.2 mg/dL (9.0-27.0); Calcium 7.4 mg/dL (8.7-10.3); Carbon Dioxide 26.4 mmol/L (20.0-27.5); Non-African American GFR(CKD) 33.7 (60.0-200.0); Potassium 2.9 mmol/L (3.5-5.5)
--- NOTE | 2021-04-17 10:07 | P.PN ---
Subjective Patient is seen in follow-up for renal transplant management and acute allograft function. Creatinine 1.9 yesterday. Has been voiding. No vomiting or diarrhea today. On bicarb drip. Hemodynamically stable. Vital signs are stable. General: The patient appeared well nourished and normally developed. HEENT: Head exam is unremarkable. LUNGS: Breath sounds decreased. HEART: Rate and Rhythm are regular. ABDOMEN: Soft, no distention. EXTREMITITES: No edema. Objective - Vital Signs Vital signs: Vital Signs Temp 97.8 F 04/17/21 09:39 Pulse 82 04/17/21 09:39 Resp 18 04/17/21 09:39 BP 107/75 04/17/21 09:39 Pulse Ox 99 04/17/21 09:39 Intake & Output 04/16/21 04/17/21 04/17/21 18:59 06:59 18:59 Intake Total 640 800 180 Output Total 500 Balance 140 800 180 Intake: Intake, IV Titration 640 800 Amount Dextrose 5% in Water 1, 640 800 000 ml @ 80 mls/hr IV . [id number] NERY with Sodium Bicarb (1 Meq/ml) 100 ml Rx#:[id number] Oral 180 Output: Urine 500 Straight 500 Other: Voiding Method Diaper Diaper Incontinent Incontinent - Labs CBC & Chem 7: 04/16/21 06:19 04/16/21 06:19 Labs: Abnormal Lab Results - Last 24 Hours (Table) 04/16/21 04/16/21 04/16/21 Range/Units 06:19 11:18 16:29 Carbon Dioxide 18.0 L (20.0-27.5) mmol/L Anion Gap 19.30 H (10.00-18.00) mmol/L BUN 32.5 H (9.0-27.0) mg/dL Creatinine 1.9 H (0.6-1.5) mg/dL Est GFR (CKD-EPI)AfAm 32.1 L (60.0-200.0) Est GFR (CKD-EPI)NonAf 27.7 L (60.0-200.0) Glucose 198 H (70-110) mg/dL POC Glucose (mg/dL) 225 H 174 H (75-99) mg/dL Calcium 8.1 L (8.7-10.3) mg/dL 04/17/21 Range/Units 07:43 Carbon Dioxide (20.0-27.5) mmol/L Anion Gap (10.00-18.00) mmol/L BUN (9.0-27.0) mg/dL Creatinine (0.6-1.5) mg/dL Est GFR (CKD-EPI)AfAm (60.0-200.0) Est GFR (CKD-EPI)NonAf (60.0-200.0) Glucose (70-110) mg/dL POC Glucose (mg/dL) 108 H (75-99) mg/dL Calcium (8.7-10.3) mg/dL Microbiology - Last 24 Hours (Table) 04/14/21 15:10 Blood Culture - Preliminary Blood No Growth after 48 hours 04/14/21 15:05 Blood Culture - Preliminary Blood No Growth after 48 hours 04/16/21 04:00 Stool Culture - Preliminary Stool Assessment and Plan Plan: Assessment: 1. Acute allograft dysfunction secondary to ATN secondary to hypovolemia and infection. Renal function better. Creatinine 1.9 yesterday. 2. Status post donor renal allograft in 2018 at [facility] with baseline creatinine near 1.25 as of 08/12/2019. 3. History of BK virus nephropathy. 4. Chronic kidney disease mineral bone disease maintained on Sensipar. 5. Metabolic acidosis secondary to acute kidney injury and GI losses. 6. Hypertension with chronic kidney disease. Controlled. 7. UTI on antibiotics. 8. COVID-19 infection. Plan: Maintain bicarb drip. Follow-up morning labs. Follow-up Prograf level. Follow-up echocardiogram. Avoid nephrotoxins. Hold nifedipine for systolic blood pressure less than 120.
[2021-04-17] MEDS: metroNIDAZOLE 500 MG TAB PO SCH ×3 (10:20→22:41)
[2021-04-17] MEDS: MAGNESIUM OXIDE 400 MG TAB PO SCH ×2 (10:20→22:41)
[2021-04-17] MEDS: SODIUM BICARBONATE TAB 650 MG TAB PO SCH ×2 (10:20→22:41)
[2021-04-17] MEDS: INSULIN DETEMIR (LEVEMIR) 100 UNIT/ML SYR SQ SCH (10:20)
[2021-04-17] MEDS: ASPIRIN 81 MG PO SCH (10:20)
[2021-04-17] MEDS: CHOLECALCIFEROL 25 MCG (1000 IU) TABLET PO SCH (10:20)
[2021-04-17] MEDS: CINACALCET 30 MG TAB PO SCH (10:21)
[2021-04-17] MEDS: TACROLIMUS 1 MG CAP PO SCH ×2 (10:21→22:40)
[2021-04-17] MEDS: MEGESTROL 400 MG/10 ML CUP PO SCH (10:30)
[2021-04-17] MEDS: buPROPion 100 MG TAB PO SCH (10:31)
[2021-04-17] MEDS: NIFEdipine XL 30 MG TAB.ER.24 PO SCH (10:32)
[2021-04-17] MEDS: predniSONE 5 MG TAB PO SCH (10:32)
--- NOTE | 2021-04-17 11:04 | P.CRDCN ---
History of Present Illness History of present illness: HISTORY OF PRESENTING ILLNESS This is a pleasant 66-year-old female past medical history significant for asthma, hypertension, type 2 diabetes, chronic kidney disease status post kidney transplant in November 2017 at [facility], BK virus nephropathy, status post IVIG, rheumatoid arthritis, former smoker. She does not follow with a wheel grinder. We have been asked to see in consultation for atrial fibrillation. Patient seen and examined at bedside. She presents to the emergency department on 04/14/21 from a nursing facility for altered mental status. Patient is a poor historian and unable to give accurate medical history. HPI obtained from the chart review. Patient is not exactly sure why she is in the hospital. She does remember having some shortness of breath, poss ible fall and diarrhea. She denies any chest pain, palpitations, lightheadedness, dizziness, syncope or near-syncope. She denies his symptoms of orthopnea PND. She states that she knew she had Covid about a week ago she was diagnosed. She states she is vaccinated against Covid. EKGs were obtained on admission and reviewed shows sinus mechanism, heart rate 96, PACs, T-wave inversions in inferior leads. Patient also found to be in acute kidney injury on admission DIAGNOSTICS Initial EKG reveals sinus rhythm, occasional PACs, heart rate 99, T wave inversions in inferior leads, no significant ST-T wave abnormalities. Repeat EKG sinus mechanism, heart rate 96, PACs, T-wave inversions in inferior leads. Telemetry tracings indicate sinus mechanism with PACs CT of abdomen and pelvis revealed mild segmental atelectasis at the lung bases appears new compared to old exam. Pancreatic head small calcifications Chest x-ray no acute cardiopulmonary process. Brain CT was negative for acute intracranial abnormality. Brain volume loss changes more than expected for the patient's age. Laboratory reviewed, sodium 143, potassium 2.9, BUN 25, serum creatinine 1.6. Covid-19 positive, C diff negative Current home medications include aspirin 81 mg daily, atorvastatin 10 mg daily REVIEW OF SYSTEMS At the time of my exam: CONSTITUTIONAL: Denies fever or chills. CARDIOVASCULAR: Denies chest pain, shortness of breath, orthopnea, PND or palpitations. RESPIRATORY: Denies cough. GASTROINTESTINAL: Denies abdominal pain, diarrhea, constipation, nausea or vomiting. MUSCULOSKELETAL: Denies myalgias. NEUROLOGIC: Denies numbness, tingling, headacbe or weakness. ENDOCRINE: Denies fatigue, weight change, polydipsia or polyurina. GENITOURINARY: Denies burning, hematuria or urgency with micturation. HEMATOLOGIC: Denies history of anemia or bleeding. PHYSICAL EXAMINATION Blood pressure 107/75, heart rate 82, afebrile, saturations 99% on room air CONSTITUTIONAL: No apparent distress. HEENT: Head is normocephalic. Pupils are equal, round. Sclerae anicteric. Mucous membranes of the mouth are moist. No JVD. No carotid bruit. CHEST EXAMINATION: Lungs are diminished bilaterally to auscultation. No chest wall tenderness is noted on palpation or with deep breathing. HEART EXAMINATION: Regular rate and rhythm. S1, S2 heard. No murmurs, gallops or rub. ABDOMEN: Soft, nontender. Positive bowel sounds. EXTREMITIES: 2+ peripheral pulses, no lower extremity edema and no calf tenderness. NEUROLOGIC EXAMINATION: Patient is awake, alert and oriented x3. ASSESSMENT Sinus tachycardia Premature atrial complexes Covid-19 Infection Acute Kidney Injury Altered mental status Urinary tract infection Asthma History of hypertension Type 2 diabetes Chronic kidney disease status post kidney transplant in November 2017 at [facility] History of BK virus nephropathy, status post IVIG History of rheumatoid arthritis History of former smoker PLAN -Telemetry and EKGs reviewed patient with no evidence of atrial fibrillation or arrhythmia at this time -Obtain 2D echocardiogram and doppler study to assess cardiac structure and function. -From a cardiology perspective, we will obtain an echocardiogram if 2D echocardiogram with no acute findings, no further cardiac workup is indicated Thank you kindly for this consultation. Nurse practitioner note has been reviewed by physician. Signing provider agrees with the documented findings, assessment, and plan of care. Past Medical History Past Medical History: Asthma, Cancer, GERD/Reflux, Hypertension, Musculoskeletal Disorder, Renal Disease Additional Past Medical History / Comment(s): GOUT, HEART MURMUR, BACK PAIN- SPINAL STENOSIS WITH SPURS AND PROLAPSED DISCS-SHE HAS 2 SPINAL CORD STIMULATORS ANNEMARIE LOWER BACK. STAGE 5 KIDNEY FAILURE. ANAL CANCER. KIDNEY TRANSPLANT AV fistula left arm History of Any Multi-Drug Resistant Organisms: None Reported Past Surgical History: Adenoidectomy, Appendectomy, Cholecystectomy, Joint Replacement, Tonsillectomy, Uterine Ablation Additional Past Surgical History / Comment(s): RT CATARACT, EAR SURGERY, SPINAL CORD STIMULATORS. REPLACEMENTS OF LT SHOULDER, LT HIP & ANNEMARIE KNEES. KIDNEY TRANSPLANT. Past Anesthesia/Blood Transfusion Reactions: No Reported Reaction Additional Past Anesthesia/Blood Transfusion Reaction / Comment(s): HX OF SEVERAL BLOOD TRANSFUSIONS, NO REACTIONS. Past Psychological History: No Psychological Hx Reported Smoking Status: Former smoker Past Alcohol Use History: None Reported Additional Past Alcohol Use History / Comment(s): SMOKED OFF AND ON. QUIT 2005. Past Drug Use History: None Reported - Past Family History Father Family Medical History: Cancer Medications and Allergies Home Medications Medication Instructions Recorded Confirmed Type buPROPion [Wellbutrin] 100 mg PO DAILY@0700 04/01/14 04/14/21 History predniSONE 5 mg PO DAILY@0700 04/01/14 04/14/21 History traZODone HCL [Desyrel] 100 mg PO HS 04/01/14 04/14/21 History Cinacalcet HCl [Sensipar] 30 mg PO DAILY@0700 08/09/19 04/14/21 History Tacrolimus [Prograf] 7 mg PO BID #60 cap 08/13/19 04/14/21 Rx Acetaminophen Tab [Tylenol] 650 mg PO Q6H 04/14/21 04/14/21 History Aspirin EC [Ecotrin Low Dose] 81 mg PO DAILY@0700 04/14/21 04/14/21 History Atorvastatin Calcium [Lipitor] 10 mg PO DAILY@1700 04/14/21 04/14/21 History Cetirizine HCl [Zyrtec] 10 mg PO DAILY@0700 04/14/21 04/14/21 History Cholecalciferol [Vitamin D3 (25 25 mcg PO DAILY@0700 04/14/21 04/14/21 History Mcg = 1000 Iu)] INSULIN LISPRO (HumaLOG) [humaLOG] See Protocol SQ ACHS 04/14/21 04/14/21 History Insulin Glargine,Hum.rec.anlog 20 unit SQ DAILY@0800 04/14/21 04/14/21 History [Lantus Solostar Pen] Magnesium Hydroxide [Milk of 7,200 mg PO Q24H PRN 04/14/21 04/14/21 History Magnesia Concentrate] Magnesium Oxide 400 mg PO BID@0700,2100 04/14/21 04/14/21 History Med Plus 90 ml PO TID@0900,1400,2100 04/14/21 04/14/21 History Megestrol Acetate [Megace] 200 mg PO DAILY@0800 04/14/21 04/14/21 History Omeprazole [PriLOSEC] 20 mg PO DAILY@0700 04/14/21 04/14/21 History Ondansetron [Zofran ODT] 4 mg PO Q6H PRN 04/14/21 04/14/21 History Sodium Bicarbonate Tab 650 mg PO TID@0700,1300,2100 04/14/21 04/14/21 History guaiFENesin [Diabetic Tussin Ex] 200 mg PO Q4H PRN 04/14/21 04/14/21 History Allergies Allergy/AdvReac Type Severity Reaction Status Date / Time adhesive Allergy Unknown Rash/Hives Verified 04/14/21 14:43 povidone-iodine Allergy Unknown Rash/Hives Verified 04/14/21 14:43 [From Betadine] soap [From Betadine] Allergy Unknown Rash/Hives Verified 04/14/21 14:43 tolmetin Allergy Unknown Verified 04/14/21 14:43 Beta-Blockers AdvReac Unknown UNABLE TO Verified 04/14/21 14:43 (Beta-Adrenergic Bloc TAKE DUE TO ASTHMA NSAIDS (Non-Steroidal AdvReac Unknown UNABLE TO Verified 04/14/21 14:43 Anti-Inflamma TAKE DUE TO KIDNEY FAILURE Physical Exam Vitals: Vital Signs Temp Pulse Resp BP Pulse Ox 04/17/21 09:39 97.8 F 82 18 107/75 99 04/17/21 06:00 98.5 F 83 17 106/64 100 04/17/21 02:00 98.7 F 87 17 118/68 97 04/16/21 22:00 97.9 F 77 16 122/74 98 04/16/21 20:00 77 16 04/16/21 18:01 97.8 F 66 17 124/65 96 04/16/21 14:00 98.0 F 84 17 88/58 100 Intake and Output 04/16/21 04/17/21 04/17/21 22:59 06:59 14:59 Intake Total 800 180 Output Total 500 Balance -500 800 180 Intake: Intake, IV Titration 800 Amount Dextrose 5% in Water 1, 800 000 ml @ 80 mls/hr IV . [id number] NERY with Sodium Bicarb (1 Meq/ml) 100 ml Rx#:[id number] Oral 180 Output: Urine 500 Straight 500 Other: Voiding Method Diaper Diaper Incontinent Incontinent # Bowel Movements 1 Results 04/16/21 06:19 04/17/21 07:03 Comprehensive Metabolic Panel 04/16/21 04/17/21 Range/Units 06:19 07:03 Sodium 145 143 (135-145) mmol/L Potassium 3.8 2.9 L (3.5-5.5) mmol/L Chloride 107 106 (96-109) mmol/L Carbon Dioxide 18.0 L 26.4 (20.0-27.5) mmol/L BUN 32.5 H 25.2 (9.0-27.0) mg/dL Creatinine 1.9 H 1.6 H (0.6-1.5) mg/dL Glucose 198 H 106 (70-110) mg/dL Calcium 8.1 L 7.4 L (8.7-10.3) mg/dL Current Medications Generic Name Dose Route Start Last Admin Trade Name Freq PRN Reason Stop Dose Admin Acetaminophen 650 mg 04/16/21 12:00 04/17/21 04:58 Acetaminophen Tab 325 Mg Tab PO 650 mg Q6HR NERY Administration Aspirin 81 mg 04/15/21 07:00 04/17/21 10:20 Aspirin 81 Mg PO 81 mg DAILY@0700 NERY Administration Atorvastatin Calcium 10 mg 04/14/21 17:00 04/16/21 15:06 Atorvastatin 10 Mg Tab PO 10 mg DAILY@1700 NERY Administration Bupropion HCl 100 mg 04/16/21 07:00 04/17/21 10:31 Bupropion 100 Mg Tab PO 100 mg DAILY@0700 NERY Administration Cholecalciferol 25 mcg 04/15/21 07:00 04/17/21 10:20 Cholecalciferol 25 Mcg (1000 Iu) Tablet PO 25 mcg DAILY@0700 [facility] Administration Cinacalcet 30 mg 04/15/21 07:00 04/17/21 10:21 Cinacalcet 30 Mg Tab PO 30 mg DAILY@0700 NERY Administration Heparin Sodium (Porcine) 5,000 unit 04/16/21 16:00 04/17/21 10:20 Heparin Sodium,Porcine/Pf 5,000 Unit/0.5 Ml Syringe SQ 5,000 unit Q8HR NERY Administration Ceftriaxone Sodium 2 gm/ 50 mls @ 100 mls/hr 04/15/21 09:00 04/16/21 07:57 Sodium Chloride IVPB 100 mls/hr Q24HR NERY Administration Protocol Sodium Bicarbonate 100 ml/ 1,100 mls @ 80 mls/hr 04/15/21 18:00 04/16/21 21:51 Dextrose/Water IV 80 mls/hr .[id number] NERY Administration Insulin Aspart 0 unit 04/15/21 12:30 04/17/21 08:06 Insulin Aspart (Novolog) 100 Unit/Ml Vial SQ Not Given ACHS NERY Protocol Insulin Detemir 20 unit 04/15/21 08:00 04/17/21 10:20 Insulin Detemir (Levemir) 100 Unit/Ml Syr SQ 20 unit DAILY@0800 NERY Administration Magnesium Oxide 400 mg 04/14/21 21:00 04/17/21 10:20 Magnesium Oxide 400 Mg Tab PO 400 mg BID@0700,2100 NERY Administration Megestrol Acetate 200 mg 04/15/21 08:00 04/17/21 10:30 Megestrol 400 Mg/10 Ml Cup PO 200 mg DAILY@0800 NERY Administration Metronidazole 500 mg 04/15/21 11:15 04/17/21 10:20 Metronidazole 500 Mg Tab PO 500 mg TID NERY Administration Protocol Nifedipine 30 mg 04/15/21 18:00 04/17/21 10:32 Nifedipine Xl 30 Mg Tab.Er.24 PO 30 mg DAILY NERY Administration Pantoprazole Sodium 40 mg 04/14/21 16:15 04/17/21 08:31 Pantoprazole 40 Mg/10 Ml Vial IVP 40 mg DAILY NERY Administration Prednisone 5 mg 04/15/21 18:00 04/17/21 10:32 Prednisone 5 Mg Tab PO 5 mg DAILY NERY Administration Sodium Bicarbonate 650 mg 04/15/21 21:00 04/17/21 10:20 Sodium Bicarbonate Tab 650 Mg Tab PO 650 mg BID NERY Administration Tacrolimus 7 mg 04/14/21 21:00 04/17/21 10:21 Tacrolimus 1 Mg Cap PO 7 mg BID NERY Administration Intake and Output 04/16/21 04/17/21 04/17/21 22:59 06:59 14:59 Intake Total 800 180 Output Total 500 Balance -500 800 180 Intake: Intake, IV Titration 800 Amount Dextrose 5% in Water 1, 800 000 ml @ 80 mls/hr IV . [id number] NERY with Sodium Bicarb (1 Meq/ml) 100 ml Rx#:[id number] Oral 180 Output: Urine 500 Straight 500 Other: Voiding Method Diaper Diaper Incontinent Incontinent # Bowel Movements 1 04/16/21 06:19 04/17/21 07:03
[2021-04-17 11:19] LABS: Glucose,Whole Blood 173 mg/dL (75-99)
[2021-04-17 11:49] LABS: Basophils # (M) 0 X 10*3/uL (0.00-0.10); Eosinophils # (M) 0 X 10*3/uL (0.04-0.35); HCT 31.8 % (37.2-46.3); HGB 10.4 g/dL (12.0-15.0); MCH 31.9 pg (27.0-32.0); MCHC 32.7 g/dL (32.0-37.0); MCV 97.5 fL (80.0-97.0); Myelocytes % 1 % (0-0); NRBC Per 100 WBC 0 /100 WBCS (0.0-0.0); Neutrophils # (M) 9.04 X 10*3/uL (2.00-8.90); Neutrophils % (M) 90 %; Platelet Count 236 X 10*3/uL (140-440); RBC 3.26 X 10*6/uL (4.10-5.20); RDW 14.8 % (11.5-14.5); WBC 10.04 X 10*3/uL (4.50-10.00)
--- NOTE | 2021-04-17 12:00 | ECHOF ---
Referral Reason:new onset atrial fibrillation MEASUREMENTS -------- HEIGHT: 165.1 cm WEIGHT: 68.0 kg BP: 106/64 RVIDd: 2.8 cm (< 3.3) IVSd: 1.5 cm (0.6 - 1.1) LVIDd: 3.5 cm (3.9 - 5.3) LVPWd: 1.4 cm (0.6 - 1.1) IVSs: 1.8 cm LVIDs: 2.7 cm LVPWs: 1.6 cm LA Diam: 2.4 cm (2.7 - 3.8) Ao Diam: 3.2 cm (2.0 - 3.7) AV Cusp: 2.3 cm (1.5 - 2.6) MV EXCURSION: 13.883 mm (> 18.000) MV EF SLOPE: 72 mm/s (70 - 150) EPSS: 0.4 cm FINDINGS -------- Atrial fibrillation. This was a technically adequate study. The left ventricular size is normal. There is moderate concentric left ventricular hypertrophy. O verall left ventricular systolic function is normal with, an EF between 55 - 60 %. The right ventricle is normal in size. The left atrium is normal in size. The right atrium is normal in size. Interatrial and interventricular septum intact. There is mild aortic valve sclerosis. There is mild aortic regurgitation. Mild mitral annular calcification present. Mild mitral regurgitation is present. The tricuspid valve appears structurally normal. Mild tricuspid regurgitation present. Trace/mild (physiologic) pulmonic regurgitation. The aortic root size is normal. Normal inferior vena cava with normal inspiratory collapse consistent with estimated right atrial pre ssure of 5 mmHg. There is a small, generalized pericardial effusion present. CONCLUSIONS -------- 1. There is moderate concentric left ventricular hypertrophy. 2. Overall left ventricular systolic function is normal with, an EF between 55 - 60 %. 3. There is mild aortic regurgitation. 4. Mild mitral regurgitation is present. 5. Mild tricuspid regurgitation present. 6. Trace/mild (physiologic) pulmonic regurgitation. 7. There is a small, generalized pericardial effusion present. GROCERY CLERK: Sravanthi Ang [facility] [place]
[2021-04-17] MEDS: DEXTROSE 5% IN WATER 1,000 ML with SODIUM BICARB (1 MEQ/ML) 100 ML IV SCH (13:49)
[2021-04-17] MEDS: SODIUM CHLORIDE 0.9% 1,000 ML IV SCH (13:53)
--- NOTE | 2021-04-17 14:37 | P.PN ---
Subjective Progress Note Date: 04/17/21 This is a pleasant 66-year-old female who presents to Hospital with altered mental status as well as acute UTI and acute Covid infection. Patient is currently alert and oriented 1-2 she knows she is in the hospital unable to tell the year. She is a poor historian. She denies any pain however during exa mination there is suprapubic tenderness noted with palpation. She continues IV Rocephin, urine cultures currently pending. Patient was found to be covid positive, however she is on room air, there is no cough or shortness of breath noted. She is afebrile. Labs today show white count 29.01, sodium 147, potassium 4.2, chloride 111, CO2 17.1, BUN 42.6, creatinine 2.4, blood glucose 90, lactic acid improved to 1.7, alk phos normalized at 117, total protein 5.4. 04/16/2021 Patient evaluated today resting in bed. Confused, Alert x 1. Patient denies any pain, shortness of breath, cough. Patient is being followed by nephrology and ID services. Renal ultrasound shows urinary bladder debris otherwise no acute abnormalities, [place] right and left kidney visualized as well as transplant kidney in right lower quadrant. Abd/Pelvis CT shows mild subsegmental atelectasis at the lung bases appears new compared to old exam, there are pancreatic head small calcifications and can relate to chronic pancreatitis. There is some mild presacral edema which is new compared to the old exam. Labs today show white count 19.90, hemoglobin 11.9, sodium 145, potassium 3.8, BUN 32.5, creatinine 1.9. Blood glucose in the 200s. Urine culture and blood culture negative so far, stool culture pending. Continues on IV Rocephin, Flagyl as well as bicarb drip. Vitals stable. 04/17/2021 Patient evaluated today resting in bed, mentation improved, now alert and oriented x3. No acute events overnight. She reports diarrhea, denies any dysuria, suprapubic pain or tenderness. White count 10.04, hemoglobin 10.4, sodium 143, potassium 2.9, BUN 25.2, creatinine 1.6, blood glucose in the 170s. Is afebrile, heart rate 72, 106/68 blood pressure 96% room air. Concern for atrial fibrillation, patient monitored on telemetry overnight. Evaluated by cardiology determined the rhythm is sinus tachycardia with PACs, current EF is 55-60%. No further cardiac workup needed. ROS Constitutional: Reports fatigue denied any fever. Cardio vascular: denied any chest pain, palpitations Gastrointestinal denied any nausea vomiting Pulmonary: Denied any shortness of breath cough Neurologic denied any new focal deficits All inpatient medications were reviewed and appropriate changes in these medications as dictated in the interval history and assessment and plan. PHYSICAL EXAMINATION: GENERAL: The patient is alert and oriented x3, not in any acute distress. Well developed, well nourished. HEENT: Pupils are round and equally reacting to light. EOMI. No scleral icterus. No conjunctival pallor. Normocephalic, atraumatic. No pharyngeal erythema. No thyromegaly. CARDIOVASCULAR: S1 and S2 present. No murmurs, rubs, or gallops. PULMONARY: Chest is clear to auscultation, no wheezing or crackles. ABDOMEN: Soft, nontender, nondistended, normoactive bowel sounds. No palpable organomegaly. MUSCULOSKELETAL: No joint swelling or deformity. EXTREMITIES: No cyanosis, clubbing, or pedal edema. NEUROLOGICAL: Gross neurological examination did not reveal any focal deficits. SKIN: No rashes. Assessment and plan Assessment Acute UTI with sepsis, present on admission, urine culture negative, continues on IV rocephin Altered mental status secondary to toxic and metabolic encephalopathy multifactorial with components of infection and metabolic acidosis from dehydration, diarrhea, improved now alert x 3 Acute kidney injury secondary to severe dehydration, improving Anion gap Metabolic Acidosis, patient continues with diarrhea, stool cultures pending, on oral sodium bicarb Hypokalemia Acute COVID infection with out evidence for pneumonia, on room air Diarrhea, cdif negative possibly due to COVID infection, on oral flagyl hypernatremia, improved 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 History of kidney transplant GERD GI Prophylaxis: Protonix DVT Prophylaxis: Subcu heparin Plan Continue IV fluids Encourage oral intake Continue IV and PO antibiotics Pending finalized cultures ID, Nephro consultation Repeat labs in AM Prognosis guarded Objective - Vital Signs Vital signs: Vital Signs Temp 98.5 F 04/17/21 06:00 Pulse 83 04/17/21 06:00 Resp 17 04/17/21 06:00 BP 106/64 04/17/21 06:00 Pulse Ox 100 04/17/21 06:00 Intake & Output 04/16/21 04/17/21 04/17/21 18:59 06:59 18:59 Intake Total 640 800 180 Output Total 500 Balance 140 800 180 Intake: Intake, IV Titration 640 800 Amount Dextrose 5% in Water 1, 640 800 000 ml @ 80 mls/hr IV . [id number] NERY with Sodium Bicarb (1 Meq/ml) 100 ml Rx#:[id number] Oral 180 Output: Urine 500 Straight 500 Other: Voiding Method Diaper Incontinent - Labs CBC & Chem 7: 04/17/21 07:03 04/17/21 07:03 Labs: Abnormal Lab Results - Last 24 Hours (Table) 04/16/21 04/16/21 04/16/21 Range/Units 06:19 06:19 11:18 WBC 19.90 H (4.50-10.00) X 10*3/uL RBC 3.68 L (4.10-5.20) X 10*6/uL Hgb 11.9 L (12.0-15.0) g/dL MCV 103.0 H (80.0-97.0) fL MCH 32.3 H (27.0-32.0) pg MCHC 31.4 L (32.0-37.0) g/dL RDW 15.3 H (11.5-14.5) % Immature Gran # 0.60 H (0.00-0.04) X 10*3/uL Neutrophils # 16.96 H (1.80-7.70) X 10*3/uL Lymphocytes # 0.72 L (0.90-5.00) X 10*3/uL Monocytes # 1.51 H (0.20-1.00) X 10*3/uL Eosinophils # 0.02 L (0.04-0.35) X 10*3/uL Carbon Dioxide 18.0 L (20.0-27.5) mmol/L Anion Gap 19.30 H (10.00-18.00) mmol/L BUN 32.5 H (9.0-27.0) mg/dL Creatinine 1.9 H (0.6-1.5) mg/dL Est GFR (CKD-EPI)AfAm 32.1 L (60.0-200.0) Est GFR (CKD-EPI)NonAf 27.7 L (60.0-200.0) Glucose 198 H (70-110) mg/dL POC Glucose (mg/dL) 225 H (75-99) mg/dL Calcium 8.1 L (8.7-10.3) mg/dL 04/16/21 04/17/21 Range/Units 16:29 07:43 WBC (4.50-10.00) X 10*3/uL RBC (4.10-5.20) X 10*6/uL Hgb (12.0-15.0) g/dL MCV (80.0-97.0) fL MCH (27.0-32.0) pg MCHC (32.0-37.0) g/dL RDW (11.5-14.5) % Immature Gran # (0.00-0.04) X 10*3/uL Neutrophils # (1.80-7.70) X 10*3/uL Lymphocytes # (0.90-5.00) X 10*3/uL Monocytes # (0.20-1.00) X 10*3/uL Eosinophils # (0.04-0.35) X 10*3/uL Carbon Dioxide (20.0-27.5) mmol/L Anion Gap (10.00-18.00) mmol/L BUN (9.0-27.0) mg/dL Creatinine (0.6-1.5) mg/dL Est GFR (CKD-EPI)AfAm (60.0-200.0) Est GFR (CKD-EPI)NonAf (60.0-200.0) Glucose (70-110) mg/dL POC Glucose (mg/dL) 174 H 108 H (75-99) mg/dL Calcium (8.7-10.3) mg/dL Microbiology - Last 24 Hours (Table) 04/14/21 15:10 Blood Culture - Preliminary Blood No Growth after 48 hours 04/14/21 15:05 Blood Culture - Preliminary Blood No Growth after 48 hours 04/16/21 04:00 Stool Culture - Preliminary Stool
[2021-04-17] MEDS: POTASSIUM CHLORIDE ER 20 MEQ TAB.ER PO SCH ×3 (14:47→17:16)
[2021-04-17 17:01] LABS: Glucose,Whole Blood 171 mg/dL (75-99)
[2021-04-17] MEDS: ATORVASTATIN 10 MG TAB PO SCH (17:16)
[2021-04-17 21:05] LABS: Glucose,Whole Blood 99 mg/dL (75-99)
--- NOTE | 2021-04-17 22:52 | P.PN ---
Subjective Progress Note Date: 04/16/21 Principal diagnosis: Urinary tract infection and a positive covid test Patient is a 66-year-old female presenting to the hospital for mental status changes this patient also having some diarrhea patient did have a positive UA concerning for asymptomatic urinary tract infection. On today's evaluation that is 04/16/2021, the patient is afebrile, the patient is breathing comfortably on room air, has been complaining of abdominal pain, still having some diarrhea at the nursing staff denies any chest pain shortness of breath or cough Objective - Vital Signs Vital signs: Vital Signs Temp 98.7 F 04/16/21 10:11 Pulse 87 04/16/21 10:11 Resp 17 04/16/21 10:11 BP 123/80 04/16/21 10:11 Pulse Ox 97 04/16/21 10:11 Intake & Output 04/15/21 04/16/21 04/16/21 18:59 06:59 18:59 Intake Total 50 640 Output Total 521 1050 Balance -471 -1050 640 Weight 68.039 kg Intake: Intake, IV Titration 50 640 Amount Dextrose 5% in Water 1, 640 000 ml @ 80 mls/hr IV . [id number] NERY with Sodium Bicarb (1 Meq/ml) 100 ml Rx#:[id number] cefTRIAXone 2 gm In 50 Sodium Chloride 0.9% 50 ml @ 100 mls/hr IVPB Q24HR NERY Rx#:[id number] Output: Urine 521 1050 Straight 550 Other: Voiding Method Diaper Diaper Incontinent Incontinent # Voids 2 # Bowel Movements 2 3 - Exam GENERAL DESCRIPTION: Middle-aged female lying in bed in no distress RESPIRATORY SYSTEM: Unlabored breathing , decreased breath sounds at bases HEART: S1 S2 regular rate and rhythm , ABDOMEN: Soft , left lower quadrant tenderness EXTREMITIES: No edema feet - Labs CBC & Chem 7: 04/17/21 07:03 04/17/21 07:03 Labs: Abnormal Lab Results - Last 24 Hours (Table) 04/15/21 04/15/21 04/16/21 Range/Units 16:27 23:24 06:19 WBC 19.90 H (4.50-10.00) X 10*3/uL RBC 3.68 L (4.10-5.20) X 10*6/uL Hgb 11.9 L (12.0-15.0) g/dL MCV 103.0 H (80.0-97.0) fL MCH 32.3 H (27.0-32.0) pg MCHC 31.4 L (32.0-37.0) g/dL RDW 15.3 H (11.5-14.5) % Immature Gran # 0.60 H (0.00-0.04) X 10*3/uL Neutrophils # 16.96 H (1.80-7.70) X 10*3/uL Lymphocytes # 0.72 L (0.90-5.00) X 10*3/uL Monocytes # 1.51 H (0.20-1.00) X 10*3/uL Eosinophils # 0.02 L (0.04-0.35) X 10*3/uL Carbon Dioxide (20.0-27.5) mmol/L Anion Gap (10.00-18.00) mmol/L BUN (9.0-27.0) mg/dL Creatinine (0.6-1.5) mg/dL Est GFR (CKD-EPI)AfAm (60.0-200.0) Est GFR (CKD-EPI)NonAf (60.0-200.0) Glucose (70-110) mg/dL POC Glucose (mg/dL) 129 H 136 H (75-99) mg/dL Calcium (8.7-10.3) mg/dL 04/16/21 04/16/21 04/16/21 Range/Units 06:19 06:43 11:18 WBC (4.50-10.00) X 10*3/uL RBC (4.10-5.20) X 10*6/uL Hgb (12.0-15.0) g/dL MCV (80.0-97.0) fL MCH (27.0-32.0) pg MCHC (32.0-37.0) g/dL RDW (11.5-14.5) % Immature Gran # (0.00-0.04) X 10*3/uL Neutrophils # (1.80-7.70) X 10*3/uL Lymphocytes # (0.90-5.00) X 10*3/uL Monocytes # (0.20-1.00) X 10*3/uL Eosinophils # (0.04-0.35) X 10*3/uL Carbon Dioxide 18.0 L (20.0-27.5) mmol/L Anion Gap 19.30 H (10.00-18.00) mmol/L BUN 32.5 H (9.0-27.0) mg/dL Creatinine 1.9 H (0.6-1.5) mg/dL Est GFR (CKD-EPI)AfAm 32.1 L (60.0-200.0) Est GFR (CKD-EPI)NonAf 27.7 L (60.0-200.0) Glucose 198 H (70-110) mg/dL POC Glucose (mg/dL) 197 H 225 H (75-99) mg/dL Calcium 8.1 L (8.7-10.3) mg/dL Microbiology - Last 24 Hours (Table) 04/16/21 04:00 Stool Culture - Preliminary Stool 04/14/21 13:53 Urine Culture - Final Urine,Catheterized 04/14/21 15:10 Blood Culture - Preliminary Blood No Growth after 24 hours 04/14/21 15:05 Blood Culture - Preliminary Blood No Growth after 24 hours Assessment and Plan (1) Leukocytosis Current Visit: Yes Status: Acute Code(s): D72.829 - ELEVATED WHITE BLOOD CELL COUNT, UNSPECIFIED SNOMED Code(s): 682795107 (2) Urinary tract infection Current Visit: Yes Status: Acute Code(s): N39.0 - URINARY TRACT INFECTION, SITE NOT SPECIFIED SNOMED Code(s): 22006051 Plan: Patient presented to the hospital mental status changes likely multifactorial in this patient did have a symptomatic urinary tract infection however the patient is tender in the left lower quadrant area is still have elevated white count CT of abdominal pelvis with oral contrast did not show any evidence of colitis or an abscess, patient to continue with Rocephin and Flagyl and will adjust antibiotics on the basis of cultures and results
--- NOTE | 2021-04-17 22:53 | P.PN ---
Subjective Progress Note Date: 04/17/21 Principal diagnosis: Urinary tract infection and a positive covid test Patient is a 66-year-old female presenting to the hospital for mental status changes this patient also having some diarrhea patient did have a positive UA concerning for asymptomatic urinary tract infection. On today's evaluation that is 04/17/2021, the patient denies any fever or chills, the patient is breathing comfortably on room air, patient denies having any chest pain or cough no abdominal pain is decreased intensity or nausea and vomiting and diarrhea has slowed Objective - Vital Signs Vital signs: Vital Signs Temp 98.5 F 04/17/21 13:23 Pulse 72 04/17/21 13:23 Resp 18 04/17/21 13:23 BP 106/68 04/17/21 13:23 Pulse Ox 96 04/17/21 13:23 Intake & Output 04/16/21 04/17/21 04/17/21 18:59 06:59 18:59 Intake Total 640 800 180 Output Total 500 275 Balance 140 800 -95 Intake: Intake, IV Titration 640 800 Amount Dextrose 5% in Water 1, 640 800 000 ml @ 80 mls/hr IV . [id number] NERY with Sodium Bicarb (1 Meq/ml) 100 ml Rx#:[id number] Oral 180 Output: Urine 500 275 Straight 500 Other: Voiding Method Diaper Diaper Incontinent Incontinent # Bowel Movements 1 - Exam GENERAL DESCRIPTION: Middle-aged female lying in bed in no distress RESPIRATORY SYSTEM: Unlabored breathing , decreased breath sounds at bases HEART: S1 S2 regular rate and rhythm , ABDOMEN: Soft , left lower quadrant tenderness EXTREMITIES: No edema feet - Labs CBC & Chem 7: 04/17/21 07:03 04/17/21 07:03 Labs: Abnormal Lab Results - Last 24 Hours (Table) 04/16/21 04/17/21 04/17/21 Range/Units 16:29 07:03 07:03 WBC 10.04 H (4.50-10.00) X 10*3/uL RBC 3.26 L (4.10-5.20) X 10*6/uL Hgb 10.4 L (12.0-15.0) g/dL Hct 31.8 L (37.2-46.3) % MCV 97.5 H (80.0-97.0) fL RDW 14.8 H (11.5-14.5) % Plt Count Comment DECREASED A Myelocytes % 1 H (0-0) % Neutrophils # (Manual) 9.04 H (2.00-8.90) X 10*3/uL Lymphocytes # (Manual) 0.40 L (0.90-5.00) X 10*3/uL Eosinophils # (Manual) 0 L (0.04-0.35) X 10*3/uL Potassium 2.9 L (3.5-5.5) mmol/L Creatinine 1.6 H (0.6-1.5) mg/dL Est GFR (CKD-EPI)AfAm 39.1 L (60.0-200.0) Est GFR (CKD-EPI)NonAf 33.7 L (60.0-200.0) POC Glucose (mg/dL) 174 H (75-99) mg/dL Calcium 7.4 L (8.7-10.3) mg/dL 04/17/21 04/17/21 Range/Units 07:43 11:16 WBC (4.50-10.00) X 10*3/uL RBC (4.10-5.20) X 10*6/uL Hgb (12.0-15.0) g/dL Hct (37.2-46.3) % MCV (80.0-97.0) fL RDW (11.5-14.5) % Plt Count Comment Myelocytes % (0-0) % Neutrophils # (Manual) (2.00-8.90) X 10*3/uL Lymphocytes # (Manual) (0.90-5.00) X 10*3/uL Eosinophils # (Manual) (0.04-0.35) X 10*3/uL Potassium (3.5-5.5) mmol/L Creatinine (0.6-1.5) mg/dL Est GFR (CKD-EPI)AfAm (60.0-200.0) Est GFR (CKD-EPI)NonAf (60.0-200.0) POC Glucose (mg/dL) 108 H 173 H (75-99) mg/dL Calcium (8.7-10.3) mg/dL Microbiology - Last 24 Hours (Table) 04/14/21 15:10 Blood Culture - Preliminary Blood No Growth after 48 hours 04/14/21 15:05 Blood Culture - Preliminary Blood No Growth after 48 hours Assessment and Plan (1) Leukocytosis Current Visit: Yes Status: Acute Code(s): D72.829 - ELEVATED WHITE BLOOD CELL COUNT, UNSPECIFIED SNOMED Code(s): 956153712 (2) Urinary tract infection Current Visit: Yes Status: Acute Code(s): N39.0 - URINARY TRACT INFECTION, SITE NOT SPECIFIED SNOMED Code(s): 95678197 Plan: Patient presented to the hospital mental status changes likely multifactorial in this patient did have a symptomatic urinary tract infection however the patient is tender in the left lower quadrant area is still have elevated white count CT of abdominal pelvis with oral contrast did not show any evidence of colitis or an abscess, patient to continue with Rocephin and Flagyl as the patient white count has normalized with current antibiotic therapy
[2021-04-18] MEDS: ACETAMINOPHEN TAB 325 MG TAB PO SCH ×4 (03:23→16:49)
[2021-04-18 06:59] LABS: Glucose,Whole Blood 83 mg/dL (75-99)
[2021-04-18] MEDS: INSULIN ASPART (NovoLOG) 100 UNIT/ML VIAL SQ SCH ×4 (08:27→22:08)
[2021-04-18] MEDS: PANTOPRAZOLE 40 MG/10 ML VIAL IVP SCH (08:30)
[2021-04-18] MEDS: HEPARIN SODIUM,PORCINE/PF 5,000 UNIT/0.5 ML SYRINGE SQ SCH ×2 (08:34→21:02)
[2021-04-18] MEDS: metroNIDAZOLE 500 MG TAB PO SCH ×3 (08:35→21:02)
[2021-04-18] MEDS: CHOLECALCIFEROL 25 MCG (1000 IU) TABLET PO SCH (08:35)
[2021-04-18] MEDS: ASPIRIN 81 MG PO SCH (08:35)
[2021-04-18] MEDS: MAGNESIUM OXIDE 400 MG TAB PO SCH ×2 (08:35→21:02)
[2021-04-18] MEDS: SODIUM BICARBONATE TAB 650 MG TAB PO SCH ×2 (08:35→21:02)
[2021-04-18] MEDS: TACROLIMUS 1 MG CAP PO SCH ×2 (08:37→21:03)
[2021-04-18] MEDS: CINACALCET 30 MG TAB PO SCH (08:37)
[2021-04-18] MEDS: NIFEdipine XL 30 MG TAB.ER.24 PO SCH (08:37)
[2021-04-18] MEDS: buPROPion 100 MG TAB PO SCH (08:38)
[2021-04-18] MEDS: predniSONE 5 MG TAB PO SCH (08:38)
[2021-04-18] MEDS: MEGESTROL 400 MG/10 ML CUP PO SCH (08:38)
[2021-04-18 08:59] LABS: African American GFR (CKD) 47.1 (60.0-200.0); Anion Gap 9.8 mmol/L (10.00-18.00); BUN/Creat Ratio 14.6 Ratio (12.00-20.00); Calcium 7.6 mg/dL (8.7-10.3); Carbon Dioxide 26.3 mmol/L (20.0-27.5); Magnesium 1.8 mg/dL (1.5-2.4); Non-African American GFR(CKD) 40.7 (60.0-200.0); Potassium 3.8 mmol/L (3.5-5.5)
[2021-04-18 09:36] LABS: HCT 34.6 % (34.0-46.0); HGB 11.6 gm/dL (11.4-16.0); MCH 33.5 pg (25.0-35.0); MCHC 33.6 g/dL (31.0-37.0); MCV 99.6 fL (80.0-100.0); Mean Platelet Volume 9.7; Platelet Count 227 k/uL (150-450); RBC 3.48 m/uL (3.80-5.40); RDW 14.3 % (11.5-15.5); WBC 10.1 k/uL (3.8-10.6)
[2021-04-18] MEDS: INSULIN DETEMIR (LEVEMIR) 100 UNIT/ML SYR SQ SCH (09:50)
[2021-04-18 11:28] LABS: Glucose,Whole Blood 95 mg/dL (75-99)
--- NOTE | 2021-04-18 13:51 | P.PN ---
Subjective Progress Note Date: 04/18/21 This is a pleasant 66-year-old female who presents to Hospital with altered mental status as well as acute UTI and acute Covid infection. Patient is currently alert and oriented 1-2 she knows she is in the hospital unable to tell the year. She is a poor historian. She denies any pain however during exa mination there is suprapubic tenderness noted with palpation. She continues IV Rocephin, urine cultures currently pending. Patient was found to be covid positive, however she is on room air, there is no cough or shortness of breath noted. She is afebrile. Labs today show white count 29.01, sodium 147, potassium 4.2, chloride 111, CO2 17.1, BUN 42.6, creatinine 2.4, blood glucose 90, lactic acid improved to 1.7, alk phos normalized at 117, total protein 5.4. 04/16/2021 Patient evaluated today resting in bed. Confused, Alert x 1. Patient denies any pain, shortness of breath, cough. Patient is being followed by nephrology and ID services. Renal ultrasound shows urinary bladder debris otherwise no acute abnormalities, three affiliated right and left kidney visualized as well as transplant kidney in right lower quadrant. Abd/Pelvis CT shows mild subsegmental atelectasis at the lung bases appears new compared to old exam, there are pancreatic head small calcifications and can relate to chronic pancreatitis. There is some mild presacral edema which is new compared to the old exam. Labs today show white count 19.90, hemoglobin 11.9, sodium 145, potassium 3.8, BUN 32.5, creatinine 1.9. Blood glucose in the 200s. Urine culture and blood culture negative so far, stool culture pending. Continues on IV Rocephin, Flagyl as well as bicarb drip. Vitals stable. 04/17/2021 Patient evaluated today resting in bed, mentation improved, now alert and oriented x3. No acute events overnight. She reports diarrhea, denies any dysuria, suprapubic pain or tenderness. White count 10.04, hemoglobin 10.4, sodium 143, potassium 2.9, BUN 25.2, creatinine 1.6, blood glucose in the 170s. Is afebrile, heart rate 72, 106/68 blood pressure 96% room air. Concern for atrial fibrillation, patient monitored on telemetry overnight. Evaluated by cardiology determined the rhythm is sinus tachycardia with PACs, current EF is 55-60%. No further cardiac workup needed. 04/18/2021 Patient is evaluated today resting in bed. She is currently alert and oriented 3 with no acute events overnight. She states the diarrhea is improving. Unfortunately patient was IV access and is a difficult start we did order a midline for the remainder of her hospital stay however this cannot be done until Tuesday which will hopefully be when she is discharged. [facility] does not accept on weekends. She does continue on IV Rocephin and by mouth Flagyl. Labs today show white count 10.1, RBC 3.48, sodium 133, potassium 3.8, BUN 20, creatinine 1.4, blood glucose in these, calcium 7.6, magnesium 1.8. ROS Constitutional: Reports fatigue denied any fever. Cardio vascular: denied any chest pain, palpitations Gastrointestinal denied any nausea vomiting Pulmonary: Denied any shortness of breath cough Neurologic denied any new focal deficits All inpatient medications were reviewed and appropriate changes in these medications as dictated in the interval history and assessment and plan. PHYSICAL EXAMINATION: GENERAL: The patient is alert and oriented x3, not in any acute distress. Well developed, well nourished. HEENT: Pupils are round and equally reacting to light. EOMI. No scleral icterus. No conjunctival pallor. Normocephalic, atraumatic. No pharyngeal erythema. No thyromegaly. CARDIOVASCULAR: S1 and S2 present. No murmurs, rubs, or gallops. PULMONARY: Chest is clear to auscultation, no wheezing or crackles. ABDOMEN: Soft, nontender, nondistended, normoactive bowel sounds. No palpable organomegaly. MUSCULOSKELETAL: No joint swelling or deformity. EXTREMITIES: No cyanosis, clubbing, or pedal edema. NEUROLOGICAL: Gross neurological examination did not reveal any focal deficits. SKIN: No rashes. Assessment and plan Assessment Acute UTI with sepsis, present on admission, urine culture negative, continues on IV rocephin Altered mental status secondary to toxic and metabolic encephalopathy multifactorial with components of infection and metabolic acidosis from dehydration, diarrhea, improved now alert x 3 Acute kidney injury secondary to severe dehydration, improving creatinine today 1.4 Anion gap Metabolic Acidosis, diarrhea improved, stool cultures pending, on oral sodium bicarb, resolved Hypokalemia, resolved Acute COVID infection with out evidence for pneumonia, on room air Diarrhea, cdif negative possibly due to COVID infection, on oral flagyl hypernatremia, improved 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 History of kidney transplant GERD GI Prophylaxis: Protonix DVT Prophylaxis: Subcu heparin Plan Continue IV fluids Encourage oral intake Continue IV and PO antibiotics Pending finalized cultures ID, Nephro consultation Discharge tuesday back to [facility] Prognosis guarded Objective - Vital Signs Vital signs: Vital Signs Temp 98.4 F 04/18/21 07:29 Pulse 80 04/18/21 07:29 Resp 17 04/18/21 07:29 BP 147/90 04/18/21 07:29 Pulse Ox 99 04/18/21 07:29 Intake & Output 04/17/21 04/18/21 04/18/21 18:59 06:59 18:59 Intake Total 180 Output Total 275 600 Balance -95 -600 Intake: Oral 180 Output: Urine 275 600 Other: Voiding Method Diaper Diaper Incontinent Indwelling Catheter # Bowel Movements 1 1 - Labs CBC & Chem 7: 04/18/21 06:39 04/18/21 06:39 Labs: Abnormal Lab Results - Last 24 Hours (Table) 04/16/21 04/17/21 04/17/21 Range/Units 06:19 07:03 07:03 WBC 10.04 H (4.50-10.00) X 10*3/uL RBC 3.26 L (4.10-5.20) X 10*6/uL Hgb 10.4 L (12.0-15.0) g/dL Hct 31.8 L (37.2-46.3) % MCV 97.5 H (80.0-97.0) fL RDW 14.8 H (11.5-14.5) % Plt Count Comment DECREASED A Myelocytes % 1 H (0-0) % Neutrophils # (Manual) 9.04 H (2.00-8.90) X 10*3/uL Lymphocytes # (Manual) 0.40 L (0.90-5.00) X 10*3/uL Eosinophils # (Manual) 0 L (0.04-0.35) X 10*3/uL Potassium 2.9 L (3.5-5.5) mmol/L Anion Gap (10.00-18.00) mmol/L Creatinine 1.6 H (0.6-1.5) mg/dL Est GFR (CKD-EPI)AfAm 39.1 L (60.0-200.0) Est GFR (CKD-EPI)NonAf 33.7 L (60.0-200.0) POC Glucose (mg/dL) (75-99) mg/dL Calcium 7.4 L (8.7-10.3) mg/dL Tacrolimus 20.9 H (5.0-20.0) ng/mL 04/17/21 04/17/21 04/18/21 Range/Units 11:16 16:59 06:39 WBC (4.50-10.00) X 10*3/uL RBC (4.10-5.20) X 10*6/uL Hgb (12.0-15.0) g/dL Hct (37.2-46.3) % MCV (80.0-97.0) fL RDW (11.5-14.5) % Plt Count Comment Myelocytes % (0-0) % Neutrophils # (Manual) (2.00-8.90) X 10*3/uL Lymphocytes # (Manual) (0.90-5.00) X 10*3/uL Eosinophils # (Manual) (0.04-0.35) X 10*3/uL Potassium (3.5-5.5) mmol/L Anion Gap 9.80 L (10.00-18.00) mmol/L Creatinine (0.6-1.5) mg/dL Est GFR (CKD-EPI)AfAm 47.1 L (60.0-200.0) Est GFR (CKD-EPI)NonAf 40.7 L (60.0-200.0) POC Glucose (mg/dL) 173 H 171 H (75-99) mg/dL Calcium 7.6 L (8.7-10.3) mg/dL Tacrolimus (5.0-20.0) ng/mL Microbiology - Last 24 Hours (Table) 04/14/21 15:10 Blood Culture - Preliminary Blood No Growth after 72 hours 04/14/21 15:05 Blood Culture - Preliminary Blood No Growth after 72 hours
[2021-04-18] MEDS: SODIUM CHLORIDE 0.9% 1,000 ML IV SCH (14:39)
[2021-04-18] MEDS: CEFDINIR 300 MG CAP PO SCH ×2 (14:53→21:03)
--- NOTE | 2021-04-18 15:08 | P.PN ---
Subjective Progress Note Date: 04/18/21 Follow-up for acute kidney injury. Creatinine better. No nausea vomiting diarrhea. Objective - Vital Signs Vital signs: Vital Signs Temp 97.9 F 04/18/21 14:00 Pulse 85 04/18/21 14:00 Resp 17 04/18/21 14:00 BP 152/85 04/18/21 14:00 Pulse Ox 100 04/18/21 14:00 Intake & Output 04/17/21 04/18/21 04/18/21 18:59 06:59 18:59 Intake Total 180 Output Total 275 600 Balance -95 -600 Intake: Oral 180 Output: Urine 275 600 Other: Voiding Method Diaper Diaper Diaper Incontinent Indwelling Catheter Indwelling Catheter # Bowel Movements 1 1 - Exam No acute distress S1-S2 heard Lungs clear No edema - Labs CBC & Chem 7: 04/18/21 06:39 04/18/21 06:39 Labs: Abnormal Lab Results - Last 24 Hours (Table) 04/16/21 04/17/21 04/18/21 Range/Units 06:19 16:59 06:39 RBC (3.80-5.40) m/uL Anion Gap 9.80 L (10.00-18.00) mmol/L Est GFR (CKD-EPI)AfAm 47.1 L (60.0-200.0) Est GFR (CKD-EPI)NonAf 40.7 L (60.0-200.0) POC Glucose (mg/dL) 171 H (75-99) mg/dL Calcium 7.6 L (8.7-10.3) mg/dL Tacrolimus 20.9 H (5.0-20.0) ng/mL 04/18/21 Range/Units 06:39 RBC 3.48 L (3.80-5.40) m/uL Anion Gap (10.00-18.00) mmol/L Est GFR (CKD-EPI)AfAm (60.0-200.0) Est GFR (CKD-EPI)NonAf (60.0-200.0) POC Glucose (mg/dL) (75-99) mg/dL Calcium (8.7-10.3) mg/dL Tacrolimus (5.0-20.0) ng/mL Microbiology - Last 24 Hours (Table) 04/14/21 15:10 Blood Culture - Preliminary Blood No Growth after 72 hours 04/14/21 15:05 Blood Culture - Preliminary Blood No Growth after 72 hours Assessment and Plan Assessment: #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 #2 status post donor renal transplant in 2018 at [facility] with a baseline creatinine of 1.25 MG per DL. 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 Prograf level of 20. Repeat labs tomorrow. 2 avoid nephrotoxic agents, renal function close to normal.
--- NOTE | 2021-04-18 16:19 | P.PN ---
Subjective Progress Note Date: 04/18/21 Principal diagnosis: Urinary tract infection and a positive covid test Patient is a 66-year-old female presenting to the hospital for mental status changes this patient also having some diarrhea patient did have a positive UA concerning for asymptomatic urinary tract infection. On today's evaluation that is , the patient remains to be afebrile, the patient is breathing comfortably on room air, patient denies having any chest pain shortness of breath or cough , the patient abdominal pain is decreased intensity or nausea and vomiting and diarrhea has slowed Objective - Vital Signs Vital signs: Vital Signs Temp 97.9 F 04/18/21 14:00 Pulse 85 04/18/21 14:00 Resp 17 04/18/21 14:00 BP 152/85 04/18/21 14:00 Pulse Ox 100 04/18/21 14:00 Intake & Output 04/17/21 04/18/21 04/18/21 18:59 06:59 18:59 Intake Total 180 Output Total 275 600 Balance -95 -600 Intake: Oral 180 Output: Urine 275 600 Other: Voiding Method Diaper Diaper Diaper Incontinent Indwelling Catheter Indwelling Catheter # Bowel Movements 1 1 - Exam GENERAL DESCRIPTION: Middle-aged female lying in bed in no distress RESPIRATORY SYSTEM: Unlabored breathing , decreased breath sounds at bases HEART: S1 S2 regular rate and rhythm , ABDOMEN: Soft , left lower quadrant tenderness EXTREMITIES: No edema feet - Labs CBC & Chem 7: 04/18/21 06:39 04/18/21 06:39 Labs: Abnormal Lab Results - Last 24 Hours (Table) 04/16/21 04/17/21 04/18/21 Range/Units 06:19 16:59 06:39 RBC (3.80-5.40) m/uL Anion Gap 9.80 L (10.00-18.00) mmol/L Est GFR (CKD-EPI)AfAm 47.1 L (60.0-200.0) Est GFR (CKD-EPI)NonAf 40.7 L (60.0-200.0) POC Glucose (mg/dL) 171 H (75-99) mg/dL Calcium 7.6 L (8.7-10.3) mg/dL Tacrolimus 20.9 H (5.0-20.0) ng/mL 02/26/22 Range/Units 06:39 RBC 3.48 L (3.80-5.40) m/uL Anion Gap (10.00-18.00) mmol/L Est GFR (CKD-EPI)AfAm (60.0-200.0) Est GFR (CKD-EPI)NonAf (60.0-200.0) POC Glucose (mg/dL) (75-99) mg/dL Calcium (8.7-10.3) mg/dL Tacrolimus (5.0-20.0) ng/mL Microbiology - Last 24 Hours (Table) 04/14/21 15:10 Blood Culture - Preliminary Blood No Growth after 72 hours 04/14/21 15:05 Blood Culture - Preliminary Blood No Growth after 72 hours Assessment and Plan (1) Leukocytosis Current Visit: Yes Status: Acute Code(s): D72.829 - ELEVATED WHITE BLOOD CELL COUNT, UNSPECIFIED SNOMED Code(s): 600508395 (2) Urinary tract infection Current Visit: Yes Status: Acute Code(s): N39.0 - URINARY TRACT INFECTION, SITE NOT SPECIFIED SNOMED Code(s): 85468987 Plan: Patient presented to the hospital mental status changes likely multifactorial in this patient did have a symptomatic urinary tract infection however the patient is tender in the left lower quadrant area is still have elevated white count CT of abdominal pelvis with oral contrast did not show any evidence of colitis or an abscess, patient has lost her IV antibiotic has been switched over to oral Omnicef and Flagyl to continue for about a week Time with Patient: Less than 30
[2021-04-18 16:26] LABS: Glucose,Whole Blood 65 mg/dL (75-99)
[2021-04-18] MEDS: ATORVASTATIN 10 MG TAB PO SCH (16:50)
[2021-04-18 16:51] LABS: Glucose,Whole Blood 80 mg/dL (75-99)
[2021-04-18 21:38] LABS: Glucose,Whole Blood 79 mg/dL (75-99)
[2021-04-19] MEDS: ACETAMINOPHEN TAB 325 MG TAB PO SCH ×5 (00:50→23:45)
[2021-04-19 02:17] LABS: Glucose,Whole Blood 100 mg/dL (75-99)
[2021-04-19] MEDS: SODIUM CHLORIDE 0.9% 1,000 ML IV SCH (03:55)
[2021-04-19 07:15] LABS: Glucose,Whole Blood 92 mg/dL (75-99)
[2021-04-19] MEDS: INSULIN ASPART (NovoLOG) 100 UNIT/ML VIAL SQ SCH ×4 (08:18→21:56)
[2021-04-19] MEDS: INSULIN DETEMIR (LEVEMIR) 100 UNIT/ML SYR SQ SCH (08:21)
[2021-04-19] MEDS: metroNIDAZOLE 500 MG TAB PO SCH ×3 (08:21→20:50)
[2021-04-19] MEDS: HEPARIN SODIUM,PORCINE/PF 5,000 UNIT/0.5 ML SYRINGE SQ SCH ×2 (08:21→20:50)
[2021-04-19] MEDS: CHOLECALCIFEROL 25 MCG (1000 IU) TABLET PO SCH (08:22)
[2021-04-19] MEDS: ASPIRIN 81 MG PO SCH (08:22)
[2021-04-19] MEDS: MEGESTROL 400 MG/10 ML CUP PO SCH (08:22)
[2021-04-19] MEDS: SODIUM BICARBONATE TAB 650 MG TAB PO SCH ×2 (08:22→20:50)
[2021-04-19] MEDS: MAGNESIUM OXIDE 400 MG TAB PO SCH ×2 (08:22→20:50)
[2021-04-19] MEDS: predniSONE 5 MG TAB PO SCH (08:23)
[2021-04-19] MEDS: NIFEdipine XL 30 MG TAB.ER.24 PO SCH (08:23)
[2021-04-19] MEDS: CINACALCET 30 MG TAB PO SCH (08:23)
[2021-04-19] MEDS: CEFDINIR 300 MG CAP PO SCH ×2 (08:23→20:50)
[2021-04-19] MEDS: buPROPion 100 MG TAB PO SCH (08:23)
[2021-04-19] MEDS: TACROLIMUS 1 MG CAP PO SCH ×2 (08:24→20:51)
[2021-04-19] MEDS: PANTOPRAZOLE 40 MG/10 ML VIAL IVP SCH (08:38)
[2021-04-19 09:36] LABS: African American GFR (CKD) 52 (>60 ml/min/1.73 sqM); Anion Gap 5 mmol/L; Blood Urea Nitrogen 20 mg/dL (7-17); Carbon Dioxide 26 mmol/L (22-30); Chloride 107 mmol/L (98-107); Glucose 96 mg/dL (74-99); Non-African American GFR(CKD) 45 (>60 ml/min/1.73 sqM); Potassium 3.7 mmol/L (3.5-5.1); Sodium 138 mmol/L (137-145)
[2021-04-19 11:19] LABS: Glucose,Whole Blood 99 mg/dL (75-99)
[2021-04-19] MEDS ORDERED: LOPERAMIDE 2 MG CAP PO PRN (14:11)
--- NOTE | 2021-04-19 14:13 | P.PN ---
Subjective Progress Note Date: 04/19/21 This is a pleasant 66-year-old female who presents to Hospital with altered mental status as well as acute UTI and acute Covid infection. Patient is currently alert and oriented 1-2 she knows she is in the hospital unable to tell the year. She is a poor historian. She denies any pain however during exa mination there is suprapubic tenderness noted with palpation. She continues IV Rocephin, urine cultures currently pending. Patient was found to be covid positive, however she is on room air, there is no cough or shortness of breath noted. She is afebrile. Labs today show white count 29.01, sodium 147, potassium 4.2, chloride 111, CO2 17.1, BUN 42.6, creatinine 2.4, blood glucose 90, lactic acid improved to 1.7, alk phos normalized at 117, total protein 5.4. 04/16/2021 Patient evaluated today resting in bed. Confused, Alert x 1. Patient denies any pain, shortness of breath, cough. Patient is being followed by nephrology and ID services. Renal ultrasound shows urinary bladder debris otherwise no acute abnormalities, ely [place] right and left kidney visualized as well as transplant kidney in right lower quadrant. Abd/Pelvis CT shows mild subsegmental atelectasis at the lung bases appears new compared to old exam, there are pancreatic head small calcifications and can relate to chronic pancreatitis. There is some mild presacral edema which is new compared to the old exam. Labs today show white count 19.90, hemoglobin 11.9, sodium 145, potassium 3.8, BUN 32.5, creatinine 1.9. Blood glucose in the 200s. Urine culture and blood culture negative so far, stool culture pending. Continues on IV Rocephin, Flagyl as well as bicarb drip. Vitals stable. 04/17/2021 Patient evaluated today resting in bed, mentation improved, now alert and oriented x3. No acute events overnight. She reports diarrhea, denies any dysuria, suprapubic pain or tenderness. White count 10.04, hemoglobin 10.4, sodium 143, potassium 2.9, BUN 25.2, creatinine 1.6, blood glucose in the 170s. Is afebrile, heart rate 72, 106/68 blood pressure 96% room air. Concern for atrial fibrillation, patient monitored on telemetry overnight. Evaluated by cardiology determined the rhythm is sinus tachycardia with PACs, current EF is 55-60%. No further cardiac workup needed. 04/18/2021 Patient is evaluated today resting in bed. She is currently alert and oriented 3 with no acute events overnight. She states the diarrhea is improving. Unfortunately patient was IV access and is a difficult start we did order a midline for the remainder of her hospital stay however this cannot be done until Tuesday which will hopefully be when she is discharged. [facility] does not accept on weekends. She does continue on IV Rocephin and by mouth Flagyl. Labs today show white count 10.1, RBC 3.48, sodium 133, potassium 3.8, BUN 20, creatinine 1.4, blood glucose in these, calcium 7.6, magnesium 1.8. 04/19/2021 Patient evaluated today resting in bed spoke with nursing staff about increasing patients activity level. Encourage patient to set up in the chair. All cultures are currently negative. Patient being followed closely by ID services. Antibiotics switched to oral yesterday on oral cefdinir and Flagyl. Creatinine continues to improve today it is 1.27, BUN 20, sodium 138, potassium 3.7, edgard cium 7.0. Blood glucose stable 90s. Per nursing staff patient had 3 bowel movements of the evening and 2 more today. This could be related to the Covid infection we will give Imodium as C. diff is negative. Appreciate nephrology consultation as well. ROS Constitutional: Reports fatigue denied any fever. Cardio vascular: denied any chest pain, palpitations Gastrointestinal denied any nausea vomiting Pulmonary: Denied any shortness of breath cough Neurologic denied any new focal deficits All inpatient medications were reviewed and appropriate changes in these medications as dictated in the interval history and assessment and plan. PHYSICAL EXAMINATION: GENERAL: The patient is alert and oriented x3, not in any acute distress. Well developed, well nourished. HEENT: Pupils are round and equally reacting to light. EOMI. No scleral icterus. No conjunctival pallor. Normocephalic, atraumatic. No pharyngeal erythema. No thyromegaly. CARDIOVASCULAR: S1 and S2 present. No murmurs, rubs, or gallops. PULMONARY: Chest is clear to auscultation, no wheezing or crackles. ABDOMEN: Soft, nontender, nondistended, normoactive bowel sounds. No palpable organomegaly. MUSCULOSKELETAL: No joint swelling or deformity. EXTREMITIES: No cyanosis, clubbing, or pedal edema. NEUROLOGICAL: Gross neurological examination did not reveal any focal deficits. SKIN: No rashes. Assessment and plan Assessment Acute UTI with sepsis, present on admission, urine culture negative, changed to oral antibiotics Altered mental status secondary to toxic and metabolic encephalopathy multifactorial with components of infection and metabolic acidosis from dehydration, diarrhea, improved now alert x 3 Acute kidney injury secondary to severe dehydration, improving creatinine today 1.27 which is about baseline. Anion gap Metabolic Acidosis, diarrhea improved, stool cultures pending, on oral sodium bicarb, resolved Hypokalemia, resolved Acute COVID infection with out evidence for pneumonia, on room air Diarrhea, cdif negative possibly due to COVID infection, on oral flagyl, added imodium hypernatremia, resolved 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 History of kidney transplant GERD GI Prophylaxis: Protonix DVT Prophylaxis: Subcu heparin Plan Continue IV fluids Encourage oral intake Continue PO antibiotics ID, Nephro consultation Discharge tuesday back to [facility] Prognosis guarded Objective - Vital Signs Vital signs: Vital Signs Temp 98.9 F 04/19/21 07:24 Pulse 58 L 04/19/21 07:24 Resp 17 04/19/21 07:24 BP 137/90 04/19/21 07:24 Pulse Ox 99 04/19/21 07:24 Intake & Output 04/18/21 04/19/21 04/19/21 18:59 06:59 18:59 Intake Total 240 Output Total 652 Balance -412 Intake: Oral 240 Output: Urine 650 Stool 2 Other: Voiding Method Diaper Indwelling Catheter Indwelling Catheter - Labs CBC & Chem 7: 04/18/21 06:39 04/19/21 05:29 Labs: Abnormal Lab Results - Last 24 Hours (Table) 04/18/21 04/19/21 04/19/21 Range/Units 16:23 02:11 05:29 BUN 20 H (7-17) mg/dL Creatinine 1.27 H (0.52-1.04) mg/dL POC Glucose (mg/dL) 65 L 100 H (75-99) mg/dL Calcium 7.0 L (8.4-10.2) mg/dL Microbiology - Last 24 Hours (Table) 04/16/21 04:00 Stool Culture - Final Stool 04/14/21 15:05 Blood Culture - Preliminary Blood No Growth after 96 hours 04/14/21 15:10 Blood Culture - Preliminary Blood No Growth after 96 hours
--- NOTE | 2021-04-19 14:26 | P.PN ---
Subjective Progress Note Date: 04/19/21 Follow-up for acute kidney injury. Creatinine better. No nausea vomiting diarrhea. Objective - Vital Signs Vital signs: Vital Signs Temp 98.9 F 04/19/21 07:24 Pulse 58 L 04/19/21 07:24 Resp 17 04/19/21 07:24 BP 137/90 04/19/21 07:24 Pulse Ox 99 04/19/21 07:24 Intake & Output 04/18/21 04/19/21 04/19/21 18:59 06:59 18:59 Intake Total 240 Output Total 652 Balance -412 Intake: Oral 240 Output: Urine 650 Stool 2 Other: Voiding Method Diaper Indwelling Catheter Indwelling Catheter - Exam No acute distress S1-S2 heard Lungs clear No edema - Labs CBC & Chem 7: 04/18/21 06:39 04/19/21 05:29 Labs: Abnormal Lab Results - Last 24 Hours (Table) 04/18/21 04/19/21 04/19/21 Range/Units 16:23 02:11 05:29 BUN 20 H (7-17) mg/dL Creatinine 1.27 H (0.52-1.04) mg/dL POC Glucose (mg/dL) 65 L 100 H (75-99) mg/dL Calcium 7.0 L (8.4-10.2) mg/dL Microbiology - Last 24 Hours (Table) 04/16/21 04:00 Stool Culture - Final Stool 04/14/21 15:05 Blood Culture - Preliminary Blood No Growth after 96 hours 04/14/21 15:10 Blood Culture - Preliminary Blood No Growth after 96 hours Assessment and Plan Assessment: #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 #2 status post donor renal transplant in 2018 at [facility] with a baseline creatinine of 1.25 MG per DL. 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 Prograf level of 20 on admission. Repeat Prograf level pending. #2 renal function improving, close to baseline. Continue with Prograf 7 mg twice a day, adjust based on new labs. #3 avoid nephrotoxic agents
[2021-04-19] MEDS: POTASSIUM CHLORIDE ER 20 MEQ TAB.ER PO SCH (14:36)
[2021-04-19 16:14] LABS: Glucose,Whole Blood 75 mg/dL (75-99)
[2021-04-19] MEDS: ATORVASTATIN 10 MG TAB PO SCH (17:13)
[2021-04-19 21:42] LABS: Glucose,Whole Blood 98 mg/dL (75-99)
--- NOTE | 2021-04-19 22:36 | P.PN ---
Subjective Progress Note Date: 04/19/21 Principal diagnosis: Urinary tract infection and a positive covid test Patient is a 66-year-old female presenting to the hospital for mental status changes this patient also having some diarrhea patient did have a positive UA concerning for asymptomatic urinary tract infection. On today's evaluation that is 04/19/2021, the patient continues to be afebrile, the patient is breathing comfortably on room air, patient denies having any chest pain shortness of breath or cough , the patient denies abdominal pain no vomiting has been reported by nursing staff however the patient did have 2 loose stools today by the nursing staff Objective - Vital Signs Vital signs: Vital Signs Temp 97.5 F L 04/19/21 14:00 Pulse 79 04/19/21 14:00 Resp 17 04/19/21 14:00 BP 125/73 04/19/21 14:00 Pulse Ox 99 04/19/21 15:42 Intake & Output 04/19/21 04/19/21 04/20/21 06:59 18:59 06:59 Intake Total 240 Output Total 652 1400 Balance -412 -1400 Intake: Oral 240 Output: Urine 650 1400 Stool 2 Other: Voiding Method Indwelling Catheter # Bowel Movements 5 - Exam GENERAL DESCRIPTION: Middle-aged female lying in bed in no distress RESPIRATORY SYSTEM: Unlabored breathing , decreased breath sounds at bases HEART: S1 S2 regular rate and rhythm , ABDOMEN: Soft , left lower quadrant tenderness EXTREMITIES: No edema feet - Labs CBC & Chem 7: 04/18/21 06:39 04/19/21 05:29 Labs: Abnormal Lab Results - Last 24 Hours (Table) 04/19/21 04/19/21 Range/Units 02:11 05:29 BUN 20 H (7-17) mg/dL Creatinine 1.27 H (0.52-1.04) mg/dL POC Glucose (mg/dL) 100 H (75-99) mg/dL Calcium 7.0 L (8.4-10.2) mg/dL Microbiology - Last 24 Hours (Table) 04/14/21 15:05 Blood Culture - Preliminary Blood No Growth after 120 hours 04/14/21 15:10 Blood Culture - Preliminary Blood No Growth after 120 hours 04/16/21 04:00 Stool Culture - Final Stool Assessment and Plan (1) Leukocytosis Current Visit: Yes Status: Acute Code(s): D72.829 - ELEVATED WHITE BLOOD CELL COUNT, UNSPECIFIED SNOMED Code(s): 880369818 (2) Urinary tract infection Current Visit: Yes Status: Acute Code(s): N39.0 - URINARY TRACT INFECTION, SITE NOT SPECIFIED SNOMED Code(s): 20634724 Plan: Patient presented to the hospital mental status changes likely multifactorial in this patient did have a symptomatic urinary tract infection however the patient is tender in the left lower quadrant area is still have elevated white count CT of abdominal pelvis with oral contrast did not show any evidence of colitis or an abscess, patient white count has normalized to continue with Omnicef and Flagyl for about a week on discharge Time with Patient: Less than 30
[2021-04-20 02:16] LABS: Glucose,Whole Blood 83 mg/dL (75-99)
[2021-04-20] MEDS: ACETAMINOPHEN TAB 325 MG TAB PO SCH ×3 (05:26→18:14)
[2021-04-20 07:33] LABS: Glucose,Whole Blood 95 mg/dL (75-99)
[2021-04-20] MEDS: INSULIN ASPART (NovoLOG) 100 UNIT/ML VIAL SQ SCH ×3 (07:39→18:21)
[2021-04-20] MEDS: PANTOPRAZOLE 40 MG/10 ML VIAL IVP SCH (09:00)
[2021-04-20] MEDS: HEPARIN SODIUM,PORCINE/PF 5,000 UNIT/0.5 ML SYRINGE SQ SCH (09:00)
[2021-04-20] MEDS: MAGNESIUM OXIDE 400 MG TAB PO SCH (09:01)
[2021-04-20] MEDS: INSULIN DETEMIR (LEVEMIR) 100 UNIT/ML SYR SQ SCH (09:01)
[2021-04-20] MEDS: metroNIDAZOLE 500 MG TAB PO SCH ×2 (09:02→15:33)
[2021-04-20] MEDS: POTASSIUM CHLORIDE ER 20 MEQ TAB.ER PO SCH (09:02)
[2021-04-20] MEDS: CINACALCET 30 MG TAB PO SCH (09:03)
[2021-04-20] MEDS: ASPIRIN 81 MG PO SCH (09:03)
[2021-04-20] MEDS: CHOLECALCIFEROL 25 MCG (1000 IU) TABLET PO SCH (09:03)
[2021-04-20] MEDS: SODIUM BICARBONATE TAB 650 MG TAB PO SCH (09:03)
[2021-04-20] MEDS: MEGESTROL 400 MG/10 ML CUP PO SCH (09:04)
[2021-04-20] MEDS: CEFDINIR 300 MG CAP PO SCH (09:04)
[2021-04-20] MEDS: predniSONE 5 MG TAB PO SCH (09:04)
[2021-04-20] MEDS: NIFEdipine XL 30 MG TAB.ER.24 PO SCH (09:05)
[2021-04-20] MEDS: buPROPion 100 MG TAB PO SCH (09:05)
[2021-04-20] MEDS: TACROLIMUS 1 MG CAP PO SCH (09:09)
--- NOTE | 2021-04-20 09:38 | P.PN ---
Subjective Patient is seen in follow-up for renal transplant management and acute allograft function. Creatinine 1.27 yesterday. Has been voiding. No vomiting or diarrhea today. Off IV fluids. Hemodynamically stable. Vital signs are stable. General: The patient appeared well nourished and normally developed. HEENT: Head exam is unremarkable. LUNGS: Breath sounds decreased. HEART: Rate and Rhythm are regular. ABDOMEN: Soft, no distention. EXTREMITITES: No edema. Objective - Vital Signs Vital signs: Vital Signs Temp 98.4 F 04/20/21 06:07 Pulse 88 04/20/21 06:07 Resp 17 04/20/21 06:07 BP 124/67 04/20/21 06:07 Pulse Ox 99 04/20/21 06:07 Intake & Output 04/19/21 04/20/21 04/20/21 18:59 06:59 18:59 Intake Total 240 Output Total 1400 900 Balance -1400 -660 Intake: Oral 240 Output: Urine 1400 900 Other: Voiding Method Indwelling Catheter Indwelling Catheter # Bowel Movements 5 1 - Labs CBC & Chem 7: 04/18/21 06:39 04/19/21 05:29 Labs: Abnormal Lab Results - Last 24 Hours (Table) 04/19/21 Range/Units 05:29 BUN 20 H (7-17) mg/dL Creatinine 1.27 H (0.52-1.04) mg/dL Calcium 7.0 L (8.4-10.2) mg/dL Microbiology - Last 24 Hours (Table) 04/16/21 04:00 Stool Culture - Final Stool 04/14/21 15:05 Blood Culture - Preliminary Blood No Growth after 120 hours 04/14/21 15:10 Blood Culture - Preliminary Blood No Growth after 120 hours Assessment and Plan Plan: Assessment: 1. Acute allograft dysfunction secondary to ATN secondary to hypovolemia and infection. Renal function better. Creatinine 1. to 7 yesterday. 2. Status post donor renal allograft in 2018 at [facility] with baseline creatinine near 1.25 as of 08/12/2019. 3. History of BK virus nephropathy. 4. Chronic kidney disease mineral bone disease maintained on Sensipar. 5. Metabolic acidosis secondary to acute kidney injury and GI losses. On oral bicarbonate. 6. Hypertension with chronic kidney disease. Controlled. 7. UTI on antibiotics. 8. COVID-19 infection. Plan: Encouraged oral intake. Repeat labs in the morning. Follow-up Prograf level. Dose will be adjusted according to the level. Ejection fraction preserved. Avoid nephrotoxins. Hold nifedipine for systolic blood pressure less than 120. DC Benson catheter. Monitor for urinary retention.
[2021-04-20 10:32] VITALS: RESP 16; TEMP 98.1
[2021-04-20 11:55] LABS: Glucose,Whole Blood 146 mg/dL (75-99)
--- NOTE | 2021-04-20 14:55 | P.DS ---
Providers Date of admission: 04/14/21 15:43 Attending physician: Ledy Chavez Consults: 04/14/21 16:06 Consult Physician Routine Consulting Provider: Kelsey Mcdonald Consult Reason/Comments: arf Do you want consulting provider notified?: Yes 04/14/21 16:07 Consult Physician Routine Consulting Provider: Tarun Barksdale Consult Reason/Comments: uti Do you want consulting provider notified?: Yes 04/16/21 15:32 Consult Physician Routine Consulting Provider: King Healy Consult Reason/Comments: new onset atrial fibrillation/flutter Do you want consulting provider notified?: Yes Primary care physician: Justus Bennett Hospital Course: Final Diagnosis Acute UTI with sepsis, asymptomatic, present on admission, urine culture negative, changed to oral antibiotics Altered mental status secondary to toxic and metabolic encephalopathy multifactorial with components of infection and metabolic acidosis from dehydration, diarrhea, improved now alert x 3 Acute kidney injury secondary to severe dehydration, improving creatinine today 1.27 which is about baseline. Anion gap Metabolic Acidosis, diarrhea improved, stool cultures pending, on oral sodium bicarb, resolved Hypokalemia, resolved Acute COVID infection with out evidence for pneumonia, on room air Diarrhea, cdif negative possibly due to COVID infection, on oral flagyl, added imodium hypernatremia, resolved 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 History of kidney transplant GERD Discharge disposition Patient stable for discharge medically back to [facility]. On oral antibiotics for one more week. Hospital course This is a pleasant 66-year-old female presents to Hospital from [facility] for acute mental status changes. Urinalysis on admission suggestive for infection with a follow-up urine culture that is negative. Additionally patient was experiencing diarrhea with mild superpubic tenderness on admission. Patient was treated inpatient with IV Rocephin and by mouth Flagyl followed closely by ID and nephrology services. Patient follows with Dr. Justus Bennett in the outpatient setting. Past medical history significant for asthma, anal cancer, GERD, hypertension, gout, spinal stenosis with spinal cord stimulator in her lower back, stage V kidney failure with kidney transplant previous hemodialysis patient with old AV fistula in the left arm. Patient also with history of BK virus nephropathy. Patient this admission found positive for COVID-19, no evidence for pneumonia on chest xray has remained on room air. Also with concern for possible atrial fibrillation on EKG however cardiology work up shows patient with sinus rhythm and premature atrial complexes, no evidence for arrhythmia. Echocardiogram shows EF of 55-60%. Abd/Pelvis CT shows mild subsegmental atelectasis at the lung bases appears new compared to old exam, there are pancreatic head small calcifications and can relate to chronic pancreatitis. There is some mild presacral edema which is new compared to the old exam Renal ultrasound shows urinary bladder debris otherwise no acute abnormalities, [place] right and left kidney visualized as well as transplant kidney in right lower quadrant. Labs on admission show white count 29.01, hemoglobin 12.3, sodium 147, chloride 111, CO2 17.1, BUN 42, creatinine 2.4. Patient has remained afebrile, heart rate in the 90s, blood pressure elevated on admission at 182 systolic however normalized into the 120s over 60s, on room air. 04/20/2021 Patient evaluated today resting in bed. She is alert and oriented 3. Diarrhea has slowed down with 2 episodes in the last 24 hours. She will discharge on one more week of oral cefepime and one week of oral Flagyl per ID recommendations. She is afebrile. Labs today show sodium 138, potassium 3.7, BUN 20, creatinine 1.27, blood glucose stable in the 140s. Vital stable today. No compressive chest pain, chest pressure, cough or shortness of breath. She did complain of some mild burning in the esophageal region. Patient will be discharged on Prilosec for GI prophylaxis. Otherwise stable on current medications. Continue Prograf, prednisone, trazodone decreased to 50 mg daily at bedtime. Imodium as needed for diarrhea which was C. diff negative. Procardia can be resumed and continue for systolic blood pressure greater than 120s. Lungs are clear to auscultation, S1-S2 auscultated abdomen soft nontender. Focal neurological exam is at baseline. Please see medication reconciliation for a list of current medications. Thank you for allowing us to participate in the care of this patient. Patient Condition at Discharge: Stable Plan - Discharge Summary Discharge Rx Participant: No New Discharge Prescriptions: New metroNIDAZOLE [Flagyl] 500 mg PO TID 7 Days #21 tab Loperamide [Imodium] 2 mg PO QID PRN cap PRN Reason: Diarrhea Cefdinir [Omnicef] 300 mg PO BID 7 Days #14 cap NIFEdipine XL [Procardia XL] 30 mg PO DAILY tablet Sodium Bicarbonate Tab 650 mg PO BID tab Continue buPROPion [Wellbutrin] 100 mg PO DAILY@0700 predniSONE 5 mg PO DAILY@0700 Cinacalcet HCl [Sensipar] 30 mg PO DAILY@0700 Tacrolimus [Prograf] 7 mg PO BID #60 cap guaiFENesin [Diabetic Tussin Ex] 200 mg PO Q4H PRN PRN Reason: Cough INSULIN LISPRO (HumaLOG) [humaLOG] See Protocol SQ ACHS Med Plus 90 ml PO TID@0900,1400,2100 Insulin Glargine,Hum.rec.anlog [Lantus Solostar Pen] 20 unit SQ DAILY@0800 Cholecalciferol [Vitamin D3 (25 Mcg = 1000 Iu)] 25 mcg PO DAILY@0700 Atorvastatin Calcium [Lipitor] 10 mg PO DAILY@1700 Ondansetron [Zofran ODT] 4 mg PO Q6H PRN PRN Reason: Nausea And Vomiting Magnesium Hydroxide [Milk of Magnesia Concentrate] 7,200 mg PO Q24H PRN PRN Reason: Constipation Acetaminophen Tab [Tylenol] 650 mg PO Q6H Magnesium Oxide 400 mg PO BID@0700,2100 Omeprazole [PriLOSEC] 20 mg PO DAILY@0700 Megestrol Acetate [Megace] 200 mg PO DAILY@0800 Cetirizine HCl [Zyrtec] 10 mg PO DAILY@0700 Aspirin EC [Ecotrin Low Dose] 81 mg PO DAILY@0700 Changed traZODone HCL [Desyrel] 50 mg PO HS #0 Discontinued Sodium Bicarbonate Tab 650 mg PO TID@0700,1300,2100 Discharge Medication List buPROPion [Wellbutrin] 100 mg PO DAILY@0700 04/01/14 [History] predniSONE 5 mg PO DAILY@0700 04/01/14 [History] Cinacalcet HCl [Sensipar] 30 mg PO DAILY@0700 08/09/19 [History] Tacrolimus [Prograf] 7 mg PO BID #60 cap 08/13/19 [Rx] Acetaminophen Tab [Tylenol] 650 mg PO Q6H 04/14/21 [History] Aspirin EC [Ecotrin Low Dose] 81 mg PO DAILY@0700 04/14/21 [History] Atorvastatin Calcium [Lipitor] 10 mg PO DAILY@1700 04/14/21 [History] Cetirizine HCl [Zyrtec] 10 mg PO DAILY@0700 04/14/21 [History] Cholecalciferol [Vitamin D3 (25 Mcg = 1000 Iu)] 25 mcg PO DAILY@0700 04/14/21 [History] INSULIN LISPRO (HumaLOG) [humaLOG] See Protocol SQ ACHS 04/14/21 [History] Insulin Glargine,Hum.rec.anlog [Lantus Solostar Pen] 20 unit SQ DAILY@0800 04/14/21 [History] Magnesium Hydroxide [Milk of Magnesia Concentrate] 7,200 mg PO Q24H PRN 04/14/21 [History] Magnesium Oxide 400 mg PO BID@0700,2100 04/14/21 [History] Med Plus 90 ml PO TID@0900,1400,209904/14/21 [History] Megestrol Acetate [Megace] 200 mg PO DAILY@0800 04/14/21 [History] Omeprazole [PriLOSEC] 20 mg PO DAILY@0704/14/21 [History] Ondansetron [Zofran ODT] 4 mg PO Q6H PRN 04/14/21 [History] guaiFENesin [Diabetic Tussin Ex] 200 mg PO Q4H PRN 04/14/21 [History] Cefdinir [Omnicef] 300 mg PO BID 7 Days #14 cap 04/20/21 [Rx] Loperamide [Imodium] 2 mg PO QID PRN cap 04/20/21 [Rx] NIFEdipine XL [Procardia XL] 30 mg PO DAILY tablet 04/20/21 [Rx] Sodium Bicarbonate Tab 650 mg PO BID tab 04/20/21 [Rx] metroNIDAZOLE [Flagyl] 500 mg PO TID 7 Days #21 tab 04/20/21 [Rx] traZODone HCL [Desyrel] 50 mg PO HS #0 04/20/21 [Rx] Follow up Appointment(s)/Referral(s): Justus Bennett MD [Primary Care Provider] - 1-2 days [facility] [NON-STAFF] - As Needed Max Mcdonough DO [STAFF PHYSICIAN] - 05/05/21 2:20 pm Tarun Barksdale MD [STAFF PHYSICIAN] - 04/27/21 1:45 pm Ambulatory/Diagnostic Orders: Basic Metabolic Panel [LAB.AMB] Time Frame: 2 Days, Location: None Selected Complete Blood Count w/diff [LAB.AMB] Time Frame: 2 Days, Location: None Selected Activity/Diet/Wound Care/Special Instructions: Return to [facility] Discharge Disposition: OTHER INSTITUTION NOT DEFINED
[2021-04-20 15:16] VITALS: BP 121/77; PULSE 88
[2021-04-20] MEDS: ATORVASTATIN 10 MG TAB PO SCH (18:15)
[2021-04-20 18:21] LABS: Glucose,Whole Blood 75 mg/dL (75-99)
== END 2021-04-20 19:35 | disposition other institution (70) | DRG 871 ==
LOC: EC 13:17 → SUPCPDRO 13:17 → 4SSUR 15:43
PROVIDERS: ADMIT Hospitalist; ATTEND Hospitalist
DX: A41.9 Sepsis, unspecified organism (principal); G92.8 Other toxic encephalopathy; N17.0 Acute kidney failure with tubular necrosis; U07.1 COVID-19; K86.1 Other chronic pancreatitis; N39.0 Urinary tract infection, site not specified; E87.0 Hyperosmolality and hypernatremia; E87.2 Acidosis; I48.92 Unspecified atrial flutter; J98.11 Atelectasis; T86.19 Other complication of kidney transplant; N18.30 Chronic kidney disease, stage 3 unspecified; E11.22 Type 2 diabetes mellitus with diabetic chronic kidney disease; E86.0 Dehydration; E86.1 Hypovolemia; E87.6 Hypokalemia; I12.9 Hypertensive chronic kidney disease with stage 1 through stage 4 chronic kidney disease, or unspecified chronic kidney disease; I48.91 Unspecified atrial fibrillation; I49.1 Atrial premature depolarization; J45.909 Unspecified asthma, uncomplicated; K21.9 Gastro-esophageal reflux disease without esophagitis; M06.9 Rheumatoid arthritis, unspecified; M89.8X9 Other specified disorders of bone, unspecified site; Y83.0 Surgical operation with transplant of whole organ as the cause of abnormal reaction of the patient, or of later complication, without mention of misadventure at the time of the procedure; R19.7 Diarrhea, unspecified; Z79.52 Long term (current) use of systemic steroids; Z79.82 Long term (current) use of aspirin; Z79.899 Other long term (current) drug therapy; Z85.048 Personal history of other malignant neoplasm of rectum, rectosigmoid junction, and anus; Z87.891 Personal history of nicotine dependence
CPT/HCPCS: 36415; 70450; 71046; 74176; 76776; 80048; 80053; 80197; 81001; 83605; 83735; 85025; 85027; 85610; 85730; 87040; 87045; 87046; 87086; 87324; 87635; 93005; 93306; 94760; 96361; 96374; 99285